=== PATIENT | female | born 1945 | race Caucasian/White ===

== ENCOUNTER 2020-10-29 21:20 | Emergency (ER) | payer MEDICARE, OTHER ==
[~2020-10-29] VITALS: Ht 160 cm; Wt 63.5 kg
[~2020-10-29 21:20] MED LIST: GEMF600T3 PO; GLIM4TAB PO; HYDR1TAB PO; LISI40TA PO; LVT.05T PO; MTF500T PO
[2020-10-29] MEDS ORDERED: NS IV 1000 ML 1,000 ML IV SCH ×3 (21:30→22:15)
[2020-10-29 21:34] LABS: BASOPHILS % (AUTO) 0 % (0-10); EOSINOPHILS # (AUTO) 0.1 10^3/uL (0.0-0.3); EOSINOPHILS % (AUTO) 1 % (0-10); HEMATOCRIT 37 % (35-52); HEMOGLOBIN 13.2 g/dL (11.5-16.0); LYMPHOCYTES # (AUTO) 2.2 10^3/uL (1.0-4.0); LYMPHOCYTES % (AUTO) 22 % (12-44); MEAN CORPUSCULAR HEMOGLOBIN 31 pg (25-34); MEAN CORPUSCULAR HGB CONC 36 g/dL (32-36); MEAN CORPUSCULAR VOLUME 85 fL (80-99); MEAN PLATELET VOLUME 9.6 fL (9.0-12.2); MONOCYTES # (AUTO) 0.8 10^3/uL (0.0-1.0); MONOCYTES % (AUTO) 8 % (0-12); NEUTROPHILS # (AUTO) 6.7 10^3/uL (1.8-7.8); NEUTROPHILS % (AUTO) 68 % (42-75); PLATELET COUNT 202 10^3/uL (130-400); WHITE BLOOD COUNT 9.9 10^3/uL (4.3-11.0)
[2020-10-29 21:45] LABS: INR 1.1 (0.8-1.4); PROTHROMBIN TIME PATIENT 14.1 SEC (12.2-14.7)
[2020-10-29 21:53] LABS: ALBUMIN 3.7 GM/DL (3.2-4.5); BILIRUBIN,TOTAL 1.9 MG/DL (0.1-1.0); CALCIUM 9.3 MG/DL (8.5-10.1); CREATININE SERUM 1.23 MG/DL (0.60-1.30); MAGNESIUM 1.5 MG/DL (1.6-2.4); POTASSIUM 3.2 MMOL/L (3.6-5.0); TOTAL PROTEIN 6.4 GM/DL (6.4-8.2)
[2020-10-29 22:12] LABS: TSH (THYROID ANALYZER) 1.33 UIU/ML (0.35-4.94)
[2020-10-29] MEDS ORDERED: inSUlin (REGULAR) HUMAN 1 UNIT/0.01 ML (CHARGE PER UNIT) SC ONE (22:15)
--- NOTE | 2020-10-29 22:47 | ED General ---
General Chief Complaint: Glucose Problems Stated Complaint: HIGH BLOOD SUGAR Nursing Triage Note: pt presents to ed via ems from home with complaints of lethargy and confusion. EMS reports upon their arrival to scene pt glucose read high. Nursing Sepsis Screen: No Definite Risk Source of Information: EMS, Old Records (PT'S ONLY PRIOR VISIT HERE WAS FOR AN OUTPATIENT PROCEDURE IN 2010. ) Exam Limitations: Other (PT IS VERY CONFUSED AND UNABLE TO GIVE ANY INFORMATION OF ANY KIND; ) History of Present Illness Date Seen by Provider: Oct 29, 2020 Time Seen by Provider: 21:23 Initial Comments PT ARRIVES VIA EMS FROM HOME IS UNKNOWN WHO CALLED EMS FOR PT PT WITH LETHARGY AND CONFUSION ACCUCHECK READ "HIGH" FOR EMS NO OTHER INFORMATION IS OBTAINABLE NO ONE ACCOMPANIED PT TO ER OR HAS CALLED ABOUT PT EMS BRINGS A BAG OF MEDICATION WITH PT--NO ASPIRIN OR ANY BLOOD THINNERS ARE IN THE BAG. Allergies and Home Medications Allergies Coded Allergies: Penicillins (Unverified Allergy, RASH, SOB, 05/04/11) Sulfa (Sulfonamide Antibiotics) (Unverified Allergy, SWELLING, 05/04/11) Home Medications Gemfibrozil 600 Mg Tablet, 1 EACH PO BID, (Reported) Glimepiride 4 Mg Tablet, 6 MG PO DAILY, (Reported) Hydrocodone Bit/Acetaminophen 1 Each Tablet, 1-2 EACH PO Q4HR PRN, (Reported) Levothyroxine Sodium 50 Mcg Tablet, 1 EACH PO DAILY, (Reported) Lisinopril 40 Mg Tablet, 1 EACH PO DAILY, (Reported) Metformin Hcl 500 Mg Tablet, 1 EACH PO BID WITH MEALS, (Reported) 2 TABS IN AM AND 1 TAB IN PM Patient Home Medication List Home Medication List Reviewed: Yes Review of Systems Review of Systems Constitutional: other (UNABLE TO OBTAIN) Past [place]-Dygcsf-Qssqrw Hx Patient Social History Smoking Status: Unknown if Ever Smoked Recent Hopitalizations: Yes Past Medical History Surgeries: Yes (RIGHT PAROTIDECTOMY 2010) Cardiac: Yes High Cholesterol, Hypertension RECORDS ASSOCIATE History: Menopausal Endocrine: Yes Diabetes, Insulin dep, Hypothyroidsim HEENT: Yes (RIGHT PAROTIDECTOMY 2010) Family Medical History ABOVE HISTORY IS OBTAINED, BASED ON PT'S MEDICATIONS. Physical Exam Vital Signs Vital Signs - First Documented 10/29/20 21:24 Temp 36.8 Pulse 78 Resp 18 B/P (MAP) 176/83 (114) Pulse Ox 98 Capillary Refill : Less Than 3 Seconds Height, Weight, BMI Height: '" Weight: lbs. oz. kg; 24.00 BMI Method: General Appearance: WD/WN, Other (LETHARGIC, "GLASSY-EYED", SLOW MENTATION, SIGNIFICANTLY CONFUSED, AND ANSWERS "YES" TO ALMOST EVERY QUESTION, OTHERWISE SPEECH IS COMPLETELY NON-SENSICAL AND VERY MINIMAL. ) HEENT: PERRL/EOMI, TMs Normal, Other (EYES WITH BLANK STARE AND APPEAR DRY, ORAL MUCOSA VERY DRY. NO EXTERNAL EVIDENCE OF TRAUMA TO HEAD OR FACE. ) Neck: Normal Inspection Respiratory: Normal Breath Sounds, No Accessory Muscle Use, No Respiratory Distress Cardiovascular: Regular Rate, Rhythm, No JVD, Normal Peripheral Pulses, Systolic Murmur (1-2/6) Gastrointestinal: No Pulsatile Mass, Non Tender, Soft Back: No CVA Tenderness, No Vertebral Tenderness Extremity: No Pedal Edema Neurologic/Psychiatric: No Motor/Sensory Deficits (DOES MOVE ALL EXTREMITIES, BUT IS VERY LETHARGIC AND NOT FOLLOWING COMMANDS), Other (LETHARGIC, BUT AWAKE, BLANK STARE, VERY MINIMAL SPEECH --ANSWERS "YES" TO NEARLY EVERY QUESTION AND ANY OTHER WORDS ARE NON-SENSICAL. UNABLE TO STATE NAME, , OR ANY NAMES OF ANYONE, OR WHERE SHE IS OR WHY SHE IS HERE. ) Skin: Normal Color, Warm/Dry; No Ecchymosis, No Rash; Other (NO EXTERNAL EVIDENCE OF TRAUMA ANYWHERE ON BODY. ) Focused Exam Lactate Level 10/29/20 22:56: Lactic Acid Level 1.92 Lactic Acid Level Laboratory Tests Test 10/29/20 22:56 Lactic Acid Level 1.92 MMOL/L (0.50-2.00) Progress/Results/Core Measures Suspected Sepsis Recent Fever Within 48 Hours: No Infection Criteria Present: None New/Unexplained Altered Menta: No Sepsis Screen: No Definite Risk SIRS Temperature: Pulse: 78 Respiratory Rate: 18 Laboratory Tests 10/29/20 21:28: White Blood Count 9.9 Blood Pressure 176 /83 Mean: 114 10/29/20 22:56: Lactic Acid Level 1.92 Laboratory Tests 10/29/20 21:28: Creatinine 1.23, INR Comment 1.1, Platelet Count 202, Total Bilirubin 1.9H Results/Orders Lab Results Laboratory Tests Test 10/29/20 21:24 10/29/20 21:28 10/29/20 22:56 10/29/20 22:57 Range/Units Blood Gas Puncture Site L RAD Blood Gas Patient Temperature 97.6 Arterial Blood pH 7.43 7.37-7.43 Arterial Blood Partial Pressure CO2 35 35-45 MMHG Arterial Blood Partial Pressure O2 91 79-93 MMHG Arterial Blood HCO3 23 23-27 MMOL/L Arterial Blood Total CO2 24.3 21.0-31.0 MMOL/L Arterial Blood Oxygen Saturation 96 94-100 % Arterial Blood Base Excess -0.7 -2.5-2.5 MMOL/L Michael Test POS Blood Gas Ventilator Setting NO Blood Gas Inspired Oxygen ROOM AIR White Blood Count 9.9 4.3-11.0 10^3/uL Red Blood Count 4.32 3.80-5.11 10^6/uL Hemoglobin 13.2 11.5-16.0 g/dL Hematocrit 37 35-52 % Mean Corpuscular Volume 85 80-99 fL Mean Corpuscular Hemoglobin 31 25-34 pg Mean Corpuscular Hemoglobin Concent 36 32-36 g/dL Red Cell Distribution Width 13.1 10.0-14.5 % Platelet Count 202 130-400 10^3/uL Mean Platelet Volume 9.6 9.0-12.2 fL Immature Granulocyte % (Auto) 0 % Neutrophils (%) (Auto) 68 42-75 % Lymphocytes (%) (Auto) 22 12-44 % Monocytes (%) (Auto) 8 0-12 % Eosinophils (%) (Auto) 1 0-10 % Basophils (%) (Auto) 0 0-10 % Neutrophils # (Auto) 6.7 1.8-7.8 10^3/uL Lymphocytes # (Auto) 2.2 1.0-4.0 10^3/uL Monocytes # (Auto) 0.8 0.0-1.0 10^3/uL Eosinophils # (Auto) 0.1 0.0-0.3 10^3/uL Basophils # (Auto) 0.0 0.0-0.1 10^3/uL Immature Granulocyte # (Auto) 0.0 0.0-0.1 10^3/uL Erythrocyte Sedimentation Rate 20 0-30 MM/HR Prothrombin Time 14.1 12.2-14.7 SEC INR Comment 1.1 0.8-1.4 Activated Partial Thromboplast Time 29 24-35 SEC Sodium Level 130 L 135-145 MMOL/L Potassium Level 3.2 L 3.6-5.0 MMOL/L Chloride Level 96 L 98-107 MMOL/L Carbon Dioxide Level 19 L 21-32 MMOL/L Anion Gap 15 H 5-14 MMOL/L Blood Urea Nitrogen 19 H 7-18 MG/DL Creatinine 1.23 0.60-1.30 MG/DL Estimat Glomerular Filtration Rate 42 BUN/Creatinine Ratio 15 Glucose Level 677 *H 70-105 MG/DL Glucometer 593 *H 472 *H 70-110 MG/DL Calcium Level 9.3 8.5-10.1 MG/DL Corrected Calcium 9.5 8.5-10.1 MG/DL Magnesium Level 1.5 L 1.6-2.4 MG/DL Total Bilirubin 1.9 H 0.1-1.0 MG/DL Aspartate Amino Transf (AST/SGOT) 17 5-34 U/L Alanine Aminotransferase (ALT/SGPT) 14 0-55 U/L Alkaline Phosphatase 110 40-136 U/L Lactate Dehydrogenase 242 H 125-220 U/L C-Reactive Protein High Sensitivity 0.76 H 0.00-0.50 MG/DL Total Protein 6.4 6.4-8.2 GM/DL Albumin 3.7 3.2-4.5 GM/DL Amylase Level 25 25-125 U/L Lipase 50 8-78 U/L Procalcitonin 0.14 H <0.10 NG/ML TSH [place] Testing 1.33 0.35-4.94 UIU/ML Lactic Acid Level 1.92 0.50-2.00 MMOL/L Test 10/29/20 23:00 10/29/20 23:13 Range/Units Urine Color YELLOW Urine Clarity CLEAR Urine pH 6.5 5-9 Urine Specific Mears <=1.005 1.016-1.022 Urine Protein TRACE H NEGATIVE Urine Glucose (UA) 3+ H NEGATIVE Urine Ketones NEGATIVE NEGATIVE Urine Nitrite NEGATIVE NEGATIVE Urine Bilirubin NEGATIVE NEGATIVE Urine Urobilinogen 0.2 < = 1.0 MG/DL Urine Leukocyte Esterase NEGATIVE NEGATIVE Urine RBC (Auto) TRACE-I NEGATIVE Urine RBC 0-2 /HPF Urine WBC 2-5 /HPF Urine Squamous Epithelial Cells 0-2 /HPF Urine Crystals PRESENT H /LPF Urine Amorphous Sediment FEW MENA URATES H /LPF Urine Bacteria FEW H /HPF Urine Casts NONE /LPF Urine Mucus SMALL H /LPF Urine Culture Indicated NO Coronavirus 2019 (JULIA) Positive H Negative My Orders Orders - RENATA MILIAN DO Accucheck Stat ONCE (10/29/20 21:24) Ed Iv/Invasive Line Start (10/29/20:24) Monitor-Rhythm Ecg Trace Only (10/29/20:24) Amylase (10/29/20:24) Arterial Blood Gas (10/29/20:24) Cbc With Automated Diff (10/29/20:24) Comprehensive Metabolic Panel (10/29/20:24) Lactic Acid Analyzer (10/29/20:24) Lipase (10/29/20:) Magnesium (10/29/20:) Protime With Inr (10/29/20:) Partial Thromboplastin Time (10/29/20:) Thyroid Analyzer (10/29/20:24) Ua Culture If Indicated (10/29/20:24) Ed Iv/Invasive Line Start (10/29/20 21:24) Ns Iv 1000 Ml (Sodium Chloride 0.9%) (10/29/20 21:30) Ekg Tracing (10/29/20 22:00) Catheter(Urinary) Insert & Ass 03,15 (10/29/20 22:00) Ed Iv/Invasive Line Start (10/29/20 22:00) Ns Iv 1000 Ml (Sodium Chloride 0.9%) (10/29/20 22:00) Magnesium 1 Gm/100 Ml Ivpb (Magnesium [place] (10/29/20 22:00) Ct Head Wo-R/O Stroke (10/29/20 22:02) Chest 1 View, Ap/Pa Only (10/29/20 22:02) Procalcitonin (Pct) (10/29/20 22:02) Hs C Reactive Protein (10/29/20 22:02) Erythrocyte Sedimentation Rate (10/29/20 22:02) LDH (10/29/20 22:02) Coronavirus Sars-Cov-2 So 2018 (10/29/20 22:02) Covid 19 Inhouse Test (10/29/20 22:02) Insulin (Regular) Human (Novolin R (Per (10/29/20 22:15) Ed Iv/Invasive Line Start (10/29/20 22:11) Ns Iv 1000 Ml (Sodium Chloride 0.9%) (10/29/20 22:15) Ns W/Kcl 20 Meq/L (Ns Iv W/Kcl 20 Meq/L) (10/29/20 23:15) Ekg Tracing (10/29/20 23:13) Labetalol Injection (Normodyne Injection (10/29/20 23:45) Labetalol Injection (Normodyne Injection (10/30/20 00:15) Accucheck Stat ONCE (10/30/20 00:05) Medications Given in ED Current Medications Medications Dose Ordered Sig/Home Route Start Time Stop Time Status Last Admin Dose Admin Insulin Human Regular 20 unit ONCE ONCE SC 10/29/20 22:15 10/29/20 22:16 DC 10/29/20 23:02 20 UNIT Labetalol HCl 10 mg ONCE ONCE IV 10/29/20 23:45 10/29/20 23:46 DC 10/29/20 23:50 10 MG Labetalol HCl 10 mg ONCE ONCE IV 10/30/20 00:15 10/30/20 00:16 DC 10/30/20 00:12 10 MG Vital Signs/I&O 10/29/20 21:24 Temp 36.8 Pulse 78 Resp 18 B/P (MAP) 176/83 (114) Pulse Ox 98 10/30/20 00:00 Intake Total 1000 ml Balance 1000 ml Capillary Refill : Less Than 3 Seconds Blood Pressure Mean: 114 Point of Care Testing Finger Stick Blood Glucose: 593 Progress Note : Progress Note COVID 19 TESTING DONE AND WAS POSITIVE PPE WORN FOR REMAINDER OF ER STAY GIVEN IV FLUIDS, INSULIN, POTASSIUM AND MAGNESIUM ALSO GIVEN LABETALOL FOR PERSISTENTLY ELEVATED BLOOD PRESSURE NO DETERIORATION IN PT'S CONDITION ACCUCHECK 404 PRIOR TO TRANSFER BP DOWN, OTHER VITALS STABLE. 2330--PT SEEMS A LITTLE MORE ALERT, TALKING MORE, BUT STILL WITH SIGNIFICANT CONFUSION AND NON-SENSICAL SPEECH AND UNABLE TO COMPLETE SENTENCES, BUT SPEECH ITSELF IS CLEAR AND NOT SLURRED. MUCH DIFFICULTY FINDING WORDS DID INFORM PT THAT SHE WAS BEING TRANSFERRED AND THAT SHE HAD BLEEDING IN HER HEAD, AND AT ONE POINT SHE DID SAY SHE FELL, BUT UNABLE TO ELABORATE. ATTEMPTED TO CALL PT'S DAUGHTER, ANA ESPITIA--THE NUMBER LISTED IS NO LONGER IN SERVICE. NO ANSWER AT PT'S HOME PHONE NUMBER NO OTHER CONTACT INFORMATION IS KNOWN, AND EMS DID NOT KNOW WHO CONTACTED THEM 0015--EMS HERE FOR TRANSFER 0027--RN ON PHONE WITH FAMILY MEMBER AND UPDATING THEM ON PT'S CONDITION. EMS WAS ABLE TO FIND PHONE NUMBER OF FAMILY MEMBER, GREER, PT'S DAUGHTER. SHE REPORTED TO RN THAT PT FELL YESTERDAY AND TODAY. ECG Initial ECG Impression Date: Oct 29, 2020 Initial ECG Impression Time: 23:06 Initial ECG Rate: 80 Initial ECG Rhythm: Normal Sinus (WITH ARTIFACT) Initial ECG Comparisson: No Previous ECG Available EKG : EKG Time: 23:09 Rate: 80 Rhythm: Normal Sinus (WITH ARTIFACT) Diagnostic Imaging Comments CXR--ATELECTASIS/INFILTRATE RIGHT BASE, PENDING RADIOLOGIST REVIEW CT HEAD--PER [facility] VIA PHONE AT [phone] AND VIA FAX AT [phone] SMALL RIGHT ANTERIOR/FRONTAL SUBDURAL BLEED, CHRONIC MICROVASCULAR ISCHEMIC CHANGES. Reviewed: Reviewed by Ct Departure Communication (Admissions) [id number]--CALLED [facility]ILLINGS [phone]--SPOKE WITH DR. FRANKLIN, ER PHYSICIAN, ACCEPTS PT FOR TRANSFER. Impression Primary Impression: Subdural hemorrhage Additional Impressions: HYPER OSMOLAR NON-KETOSIS, UNCONTROLLED DIABETES COVID-19 virus infection Uncontrolled hypertension Altered mental status Hypokalemia Hypomagnesemia Disposition: XFER SHT-TRM HOSP Condition: Stable Transfer Transfer Reason: Exceeds level of care Transfer Facility: [facility] ID Departure-Patient Inst. Referrals: HUONG PETERS MD (Family) Primary Care Physician RENATA MILIAN DO Oct 29, 2020 22:46
[2020-10-29] MEDS: MAGNESIUM 1 GM/100 ML IVPB 100 ML IV SCH ×2 (23:03→23:19)
[2020-10-29 23:05] LABS: BILIRUBIN,URINE NEGATIVE (NEGATIVE); CLARITY,URINE CLEAR; COLOR,URINE YELLOW; GLUCOSE, URINE (UA) 3+ (NEGATIVE); KETONES,URINE NEGATIVE (NEGATIVE); LEUKOCYTE ESTERASE ,URINE NEGATIVE (NEGATIVE); NITRITE,URINE NEGATIVE (NEGATIVE); PH,URINE 6.5 (5-9); PROTEIN,URINE TRACE (NEGATIVE)
[2020-10-29 23:12] LABS: ABG BASE EXCESS -0.7 MMOL/L (-2.5-2.5); ABG OXYGEN SATURATION 96 % (94-100); ABG PCO2 35 MMHG (35-45); ABG PH 7.43 (7.37-7.43); ABG PO2 91 MMHG (79-93); ABG TCO2 24.3 MMOL/L (21.0-31.0)
[2020-10-29 23:13] LABS: AMORPHOUS SEDIMENT,UR FEW AMOR URATES /LPF; BACTERIA,URINE FEW /HPF; RBC,URINE 0-2 /HPF; SQUAMOUS EPITHELIAL CELL,UR 0-2 /HPF
[2020-10-29 23:15] LABS: ALLENS TEST POS; INSPIRED O2 ROOM AIR; PATIENT TEMP 97.6; VENTILATOR NO
[2020-10-29] MEDS ORDERED: NS W/KCL 20 MEQ/L 1,000 ML IV SCH (23:15)
[2020-10-29] MEDS ORDERED: LABETALOL HCL 20 MG/4 ML VIAL IV ONE (23:45)
[2020-10-30] MEDS ORDERED: LABETALOL HCL 20 MG/4 ML VIAL IV ONE (00:15)
[2020-10-30 00:37] VITALS: BP 195/89
--- NOTE | 2020-10-30 06:30 | Diagnostic Imaging Report ---
EXAMINATION: Portable erect AP chest at 1043 PM INDICATION: Altered mental status This exam is less than optimal due to shallow inspiration. Allowing for this technical factor, the heart size is within normal limits and stable when compared to 05/04/2011. There are few carotid bronchovascular markings in both infrahilar regions. These may be secondary to the shallow degree of inspiration as well. There is no clear evidence for pneumonia or for pleural effusion. There may be mild atelectasis/infiltrate in the right lung base, however. The mediastinum is not widened. The osseous structures are intact. IMPRESSION: 1. This study is less than optimal due to shallow inspiration. There may be mild atelectasis/infiltrate in the right lung base. Clinical follow-up is recommended. Dictated by: Dictated on workstation # [id number]
--- NOTE | 2020-10-30 07:15 | Diagnostic Imaging Report ---
PROCEDURE: CT head wo r/o stroke. TECHNIQUE: Multiple contiguous axial images were obtained through the brain without the use of intravenous contrast. Auto Exposure Controls were utilized during the CT exam to meet ALARA standards for radiation dose reduction. INDICATION: CVA There are no prior studies available for comparison. Adjacent to the anterior falx there is a small 2 x 12 mm area of increased density. I suspect this is related to a small amount of hemorrhage in the subdural space adjacent to the falx. There is no other hemorrhage identified. There is no mass or shift of midline. The ventricles are not abnormally dilated. Basal ganglia calcifications are evident. There is cortical atrophy. The degree of atrophy is consistent with the patient's age. The bone windows show no evidence for a skull fracture or for a destructive lesion. The orbits are symmetrical and within normal limits. The sinuses are generally clear. IMPRESSION: 1. There is a small amount of acute hemorrhage in the subdural space adjacent to the anterior falx. A short-term (24-hour) follow-up CT head exam would be recommended for continued evaluation. 2. There is no acute intracranial abnormality noted otherwise. 3. I agree with the [facility] interpretation of this exam. Dictated by: Dictated on workstation # [id number]
== END 2020-10-30 00:37 | disposition short-term general hospital (02) ==
LOC: EDUNIT# 21:20 → ER 21:22
DX: I62.00 Nontraumatic subdural hemorrhage, unspecified (principal); E11.65 Type 2 diabetes mellitus with hyperglycemia; U07.1 COVID-19; I10 Essential (primary) hypertension; R41.82 Altered mental status, unspecified; E87.6 Hypokalemia; E83.42 Hypomagnesemia; E03.9 Hypothyroidism, unspecified; E78.00 Pure hypercholesterolemia, unspecified; Z79.890 Hormone replacement therapy; Z88.0 Allergy status to penicillin; Z88.2 Allergy status to sulfonamides
CPT/HCPCS: 51702; 70450; 71045; 80053; 81000; 82150; 82805; 82962 ×2; 83605; 83615; 83690; 83735; 84145; 84443; 85025; 85610; 85652; 85730; 86141; 93041; 99291; U0002; 36415; 87635

== ENCOUNTER 2020-11-08 12:46 | Observation (INO) | payer MEDICARE, OTHER ==
[~2020-11-08] VITALS: Ht 170 cm; Wt 64.3 kg
--- NOTE | 2020-11-08 13:15 | ED Neurological Problem ---
General Chief Complaint: Neuro-Stroke Like Symptoms Stated Complaint: AMS Source: patient Exam Limitations: no limitations History of Present Illness Date Seen by Provider: Nov 08, 2020 Time Seen by Provider: 12:42 Initial Comments Patient presents ER by EMS from home with chief complaint of altered mental status. Blood sugar reads high. No history of strokes not on blood thinners. Takes lisinopril and atorvastatin. She is accompanied by her son with MR who gives very little history. Patient is alert to her name and remember she had a fall but does not have any pain anywhere. Unknown last well time. Unknown time of fall. She denies loss of consciousness but she does recall striking her head. Allergies and Home Medications Allergies Coded Allergies: Penicillins (Unverified Allergy, Unknown, RASH, SOB, 11/08/20) Sulfa (Sulfonamide Antibiotics) (Unverified Allergy, Unknown, SWELLING, 11/08/20) Home Medications Gemfibrozil 600 Mg Tablet, 1 EACH PO BID, (Reported) Glimepiride 4 Mg Tablet, 6 MG PO DAILY, (Reported) Hydrocodone Bit/Acetaminophen 1 Each Tablet, 1-2 EACH PO Q4HR PRN, (Reported) Levothyroxine Sodium 50 Mcg Tablet, 1 EACH PO DAILY, (Reported) Lisinopril 40 Mg Tablet, 1 EACH PO DAILY, (Reported) Metformin Hcl 500 Mg Tablet, 1 EACH PO BID WITH MEALS, (Reported) 2 TABS IN AM AND 1 TAB IN PM Patient Home Medication List Home Medication List Reviewed: Yes Review of Systems Review of Systems Constitutional: No chills, No diaphoresis Eyes: Denies Blindness, Denies Blurred Vision Ears, Nose, Mouth, Throat: denies ear pain, denies ear discharge Respiratory: No cough, No short of breath Cardiovascular: No chest pain, No Hx of Intervention Gastrointestinal: No abdominal pain, No nausea, No vomiting Musculoskeletal: No back pain, No joint pain All Other Systems Reviewed Negative Unless Noted: Yes Past Hvdnfiw-Rjzvnp-Qxixym Hx Patient Social History Alcohol Use: Denies Use Smoking Status: Never a Smoker Recent Hopitalizations: Yes Past Medical History Surgeries: Yes (RIGHT PAROTIDECTOMY 2010) Cardiac: Yes High Cholesterol, Hypertension [employer]PERATOR History: Menopausal Endocrine: Yes Diabetes, Insulin dep, Hypothyroidsim HEENT: Yes (RIGHT PAROTIDECTOMY 2010) Family Medical History ABOVE HISTORY IS OBTAINED, BASED ON PT'S MEDICATIONS. Physical Exam Vital Signs Vital Signs - First Documented 11/08/20 12:46 Temp 36.0 Pulse 99 Resp 16 B/P (MAP) 186/95 (125) Pulse Ox 98 O2 Delivery Room Air Capillary Refill : Height, Weight, BMI Height: '" Weight: lbs. oz. kg; 24.00 BMI Method: General Appearance: WD/WN, mild distress HEENT: PERRL/EOMI, TMs normal, pharynx normal, other (Abrasion and small hematoma 1 to 2 cm over the right eyebrow nonbleeding.) Neck: non-tender, full range of motion, supple, normal inspection Respiratory: lungs clear, normal breath sounds, no respiratory distress, no accessory muscle use Cardiovascular: normal peripheral pulses, regular rate, rhythm Gastrointestinal: normal bowel sounds, non tender, soft Neurologic/Psychiatric: cast associate II-XII nml as tested, alert; No oriented x 3 (Oriented to person and place but not time or situation); motor weakness (4 out of 5 weakness symmetric bilateral lower) Crainal Nerves: normal hearing, abnormal speech (Aphasia) Stroke Onset of Symptoms Date of Onset of Symptoms: Nov 08, 2020 Symptoms onset unknown: Yes NIH Stroke Scale Assessment Select: Initial Level of Consciousness: 0=Alert (0), Level of Consciousness- Questions: 1=Answers one question (1), LOC Commands: 0=Performs both tasks (0), Gaze: Normal (0), Visual Delong: 0=No visual loss (0), Facial Movement (Facial Paresis): 0=Normal symmetrical mnt (0), Motor Function-Arms Right: 0=No drift (0), Motor Function-Arms Left: 0=No drift (0), Motor Function-Legs Right: 1=Drift (1), Motor Function-Legs Left: 1=Drift (1), Limb Ataxia: 0=Absent (0), Sensory: 0=Normal:no loss (0), Best Language: 1=Mild to moderat aphasia (1), Dysarthria: 0=Normal (0), Extinction & Inattention: 0=No abnormality (0), Total: 4 Stroke Thrombolytic Exclusion Age 18 or Over: Yes Acute intenal hemorrhage: Yes History of CVA: No Uncontrolled Coagulation Defec: No Intracranial Hemorrhage: Yes Severe Hypertension: No GI or Bleed: No Subarachnoid Hemorrhage: No Intracranial Neoplasm/Aneurysm: No Oral Anticoagulants: No Surgery or Trauma: No Puncture of Non-Compressible V: No Recent CPR: No Diabetic Hemorrhagic Retinopat: No Organ Biopsy: No Recent Obstetric Delivery: No Glucose: Yes (high) Significant Hepatic Dysfunctio: No NIH Stoke Scale >22: No Bacterial Endocarditis: No Pericarditis: No Improving Symptoms: No Platelets: No TPA Contraindication: Yes (ich) IV - TPa Received IV - TPa Procedure Performed?: No (ich) Progress/Results/Core Measures Results/Orders Lab Results Laboratory Tests Test 11/08/20 12:46 11/08/20 13:20 11/08/20 13:36 11/08/20 14:44 Range/Units White Blood Count 9.3 4.3-11.0 10^3/uL Red Blood Count 4.65 3.80-5.11 10^6/uL Hemoglobin 13.9 11.5-16.0 g/dL Hematocrit 40 35-52 % Mean Corpuscular Volume 86 80-99 fL Mean Corpuscular Hemoglobin 30 25-34 pg Mean Corpuscular Hemoglobin Concent 35 32-36 g/dL Red Cell Distribution Width 12.6 10.0-14.5 % Platelet Count 292 130-400 10^3/uL Mean Platelet Volume 9.7 9.0-12.2 fL Immature Granulocyte % (Auto) 0 % Neutrophils (%) (Auto) 74 42-75 % Lymphocytes (%) (Auto) 18 12-44 % Monocytes (%) (Auto) 6 0-12 % Eosinophils (%) (Auto) 1 0-10 % Basophils (%) (Auto) 0 0-10 % Neutrophils # (Auto) 6.9 1.8-7.8 10^3/uL Lymphocytes # (Auto) 1.7 1.0-4.0 10^3/uL Monocytes # (Auto) 0.6 0.0-1.0 10^3/uL Eosinophils # (Auto) 0.1 0.0-0.3 10^3/uL Basophils # (Auto) 0.0 0.0-0.1 10^3/uL Immature Granulocyte # (Auto) 0.0 0.0-0.1 10^3/uL Prothrombin Time 13.9 12.2-14.7 SEC INR Comment 1.0 0.8-1.4 Activated Partial Thromboplast Time 31 24-35 SEC D-Dimer 1.58 H 0.00-0.49 UG/ML Sodium Level 134 L 135-145 MMOL/L Potassium Level 3.8 3.6-5.0 MMOL/L Chloride Level 94 L 98-107 MMOL/L Carbon Dioxide Level 23 21-32 MMOL/L Anion Gap 17 H 5-14 MMOL/L Blood Urea Nitrogen 25 H 7-18 MG/DL Creatinine 1.38 H 0.60-1.30 MG/DL Estimat Glomerular Filtration Rate 37 BUN/Creatinine Ratio 18 Glucose Level 527 *H 70-105 MG/DL Calcium Level 9.8 8.5-10.1 MG/DL Corrected Calcium 9.9 8.5-10.1 MG/DL Total Bilirubin 2.0 H 0.1-1.0 MG/DL Aspartate Amino Transf (AST/SGOT) 19 5-34 U/L Alanine Aminotransferase (ALT/SGPT) 18 0-55 U/L Alkaline Phosphatase 180 H 40-136 U/L Troponin I 0.062 H <0.028 NG/ML Total Protein 7.6 6.4-8.2 GM/DL Albumin 3.9 3.2-4.5 GM/DL Urine Color YELLOW Urine Clarity CLOUDY Urine pH 6.0 5-9 Urine Specific [place] 1.025 H 1.016-1.022 Urine Protein 2+ H NEGATIVE Urine Glucose (UA) 3+ H NEGATIVE Urine Ketones 1+ H NEGATIVE Urine Nitrite NEGATIVE NEGATIVE Urine Bilirubin NEGATIVE NEGATIVE Urine Urobilinogen 0.2 < = 1.0 MG/DL Urine Leukocyte Esterase NEGATIVE NEGATIVE Urine RBC (Auto) NEGATIVE NEGATIVE Urine RBC NONE /HPF Urine WBC NONE /HPF Urine Squamous Epithelial Cells 0-2 /HPF Urine Crystals NONE /LPF Urine Bacteria FEW H /HPF Urine Casts NONE /LPF Urine Mucus NEGATIVE /LPF Urine Yeast LARGE H /HPF Urine Culture Indicated YES Glucometer 427 *H 322 H 70-110 MG/DL Test 11/08/20 16:27 Range/Units Glucometer 277 H 70-110 MG/DL My Orders Orders - WILL QUEZADA Cbc With Automated Diff (11/08/20 13:00) Protime With Inr (11/08/20 13:00) Partial Thromboplastin Time (11/08/20 13:00) Comprehensive Metabolic Panel (11/08/20 13:00) Fibrin Degradation Products (11/08/20 13:00) Troponin I (11/08/20 13:00) Ua Culture If Indicated (11/08/20 13:00) Chest 1 View, Ap/Pa Only (11/08/20 13:00) Catheter(Urinary) Insert & Ass 03,15 (11/08/20 13:00) Ekg Tracing (11/08/20 13:00) Nothing By Mouth (11/08/20 Lunch) Accucheck Stat ONCE (11/08/20 13:00) Ed Iv/Invasive Line Start (11/08/20 13:00) Ed Iv/Invasive Line Start (11/08/20 13:00) Vital Signs Stroke Patient Q15M (11/08/20 13:00) Ct Head Wo-R/O Stroke (11/08/20 13:00) O2 (11/08/20 13:00) Intake & Output 06,14,22 (11/08/20 13:00) Monitor-Rhythm Ecg Trace Only (11/08/20 13:00) Dysphagia Screening Tool (11/08/20 13:00) Post Thrombolytic Adminstratio (11/08/20 13:00) Lipid Panel (11/09/20 06:00) Urine Culture (11/08/20 13:20) Insulin (Regular) Human (Novolin R (Per (11/08/20 13:45) Accucheck Stat ONCE (11/08/20 14:50) Ct Angio Head/Neck (11/08/20 14:51) Ed Iv/Invasive Line Start (11/08/20 14:51) Ns Iv 1000 Ml (Sodium Chloride 0.9%) (11/08/20 15:00) Insulin (Regular) Human (Novolin R (Per (11/08/20 15:00) Mri Brain W/O Contrast (11/08/20 14:30) Cbc With Automated Diff (11/08/20 15:27) Protime With Inr (11/08/20 15:27) Partial Thromboplastin Time (11/08/20 15:27) Comprehensive Metabolic Panel (11/08/20 15:27) Fibrin Degradation Products (11/08/20 15:27) Troponin I (11/08/20 15:27) Accucheck Stat ONCE (2/22/21 15:27) Ed Iv/Invasive Line Start (11/08/20 15:27) Ed Iv/Invasive Line Start (11/08/20 15:27) Vital Signs Stroke Patient Q15M (11/08/20 15:27) O2 (11/08/20 15:27) Intake & Output 06,14,22 (11/08/20 15:27) Dysphagia Screening Tool (11/08/20 15:27) Post Thrombolytic Adminstratio (11/08/20 15:27) Iohexol Injection (Omnipaque 350 Mg/Ml 1 (11/08/20 15:30) Received Contrast (Hold Metformin- Contr (11/08/20 15:30) Sodium Chloride Flush (Catheter Flush Sy (11/08/20 15:30) Ns (Ivpb) (Sodium Chloride 0.9% Ivpb Bag (11/08/20 15:30) Accucheck Stat ONCE (11/08/20 16:20) Medications Given in ED Current Medications Medications Dose Ordered Sig/Home Route Start Time Stop Time Status Last Admin Dose Admin Insulin Human Regular 5 unit ONCE ONCE IV 11/08/20 13:45 11/08/20 13:46 DC 11/08/20 14:03 5 UNIT Insulin Human Regular 5 unit ONCE ONCE SC 11/08/20 15:00 11/08/20 15:01 DC 11/08/20 15:07 5 UNIT Iohexol 100 ml ONCE ONCE IV 11/08/20 15:30 11/08/20 15:31 DC 11/08/20 16:03 75 ML Sodium Chloride 10 ml NEEDED PRN IV 11/08/20 15:30 11/08/20 17:45 DC 11/08/20 16:03 10 ML Sodium Chloride 100 ml ONCE ONCE IV 11/08/20 15:30 11/08/20 15:31 DC 11/08/20 16:03 80 ML Vital Signs/I&O 11/08/20 12:46 Temp 36.0 Pulse 99 Resp 16 B/P (MAP) 186/95 (125) Pulse Ox 98 O2 Delivery Room Air Progress Progress Note #1: Time: 14:35 Progress Note Altered mental status with unknown last well time and blood sugar 450 on arrival. We gave 5 units of regular insulin. There is some odd findings on the CT that may be related to uncontrolled hyper glycemia. Plan to consult with neurology and we are attempting to obtain an MRI. Progress Note #2: Time: 16:29 Progress Note As we get more history from her daughter who the patient seems to be emotionally estranged with we reveal that about 10 days ago the patient had a fall with subdural hematoma treated at [facility]. She went home and was living with her daughter but then demanded to go back to her own house despite having some continued confusion. Today her son checked on her summonsed EMS. Patient's symptoms have significantly improved as her blood sugar comes down. She is no longer having any weakness and has an NIH of one-point nearly 4 difficulty remembering her date of . She has significantly improved her aphasia. Initial ECG Impression Date: Nov 08, 2020 Initial ECG Impression Time: 13:13 Initial ECG Rate: 90 Initial ECG Rhythm: Normal Sinus Initial ECG Intervals: QT (495) Initial ECG Impression: Normal Initial ECG Comparisson: No Previous ECG Available Comment Normal sinus rhythm without clinically relevant ST elevation or depression. Prolonged QTC mild. Diagnostic Imaging Diagonstic Imaging: Xray Plain Films/CT/US/NM/MRI: chest Comments [facility] [place], [place] NAME: LAURA ESPITIA [facility] REC#: [id number] PT STATUS: REG ER : 1945 PHYSICIAN: WILL QUEZADA MD ADMIT DATE: 11/08/20/ER Signed Date of Exam:11/08/20 CHEST 1 VIEW, AP/PA ONLY CHEST 1 VIEW, AP/PA ONLY Indication: Left arm weakness Comparison: 10/29/2020 Findings: No focal airspace disease in the visualized lungs. Please note that the posterior lower lobes are poorly evaluated by portable radiography. No pleural effusion or pneumothorax. Normal cardiomediastinal silhouette. Impression: 1. No acute cardiopulmonary process by portable radiography. Dictated by: Dictated on workstation # [id number] Dict: 11/08/201417 Trans: 11/08/201418 [facility] [id number] Interpreted by: GERHARD SERVIN MD Electronically signed by: GERHARD SERVIN MD 11/08/20 1419 Reviewed: Reviewed by Me Diagonstic Imaging: CT Plain Films/CT/US/NM/MRI: head Comments [facility] [place] [place] NAME: LAURA ESPITIA [facility] REC#: [id number] PT STATUS: REG ER : 1945 PHYSICIAN: WILL QUEZADA MD ADMIT DATE: 11/08/20/ER Signed Date of Exam:11/08/20 CT HEAD WO-R/O STROKE PROCEDURE: CT head wo r/o stroke. TECHNIQUE: Multiple contiguous axial images were obtained through the brain without the use of intravenous contrast. Auto Exposure Controls were utilized during the CT exam to meet ALARA standards for radiation dose reduction. INDICATION: Neuro deficit, left arm weakness. COMPARISON: CT head of 10/29/2020. FINDINGS: Previously noted subdural hematoma is resolved. No new intracranial hemorrhage. Asymmetric hyperdensity in the right caudate and lentiform nuclei is more conspicuous than prior examination. No hydrocephalus or space-occupying mass. Basilar cisterns remain widely patent. No skull fracture. Paranasal sinuses and mastoid air cells are clear. IMPRESSION: 1. No new intracranial hemorrhage or features of territorial infarct. 2. Asymmetric hyperattenuation of the right caudate and lentiform nuclei can be seen with uncontrolled hyperglycemia. Since patient has repetitive neurologic symptoms, MRI of the brain without and with IV contrast is suggested for further assessment. Dictated by: Dictated on workstation # [id number] Dict: 11/08/20 1312 Trans: 11/08/20 1337 [facility] [id number] Interpreted by: GERHARD SERVIN MD Electronically signed by: GERHARD SERVIN MD 11/08/20 1337 Reviewed: Reviewed by Sd Diagonstic Imaging: CT (angio) Plain Films/CT/US/NM/MRI: head (neck) Comments [facility] [place] [place] NAME: LAURA ESPITIA [facility] REC#: [id number] PT STATUS: REG ER : 1945 PHYSICIAN: WILL QUEZADA MD ADMIT DATE: 11/08/20/ER Signed Date of Exam:11/08/20 CT ANGIO HEAD/NECK PROCEDURE: CT angiography of the head and CT angiography of the neck with and without contrast. TECHNIQUE: Contiguous noncontrast images were obtained from the skull base through the vertex. After intravenous contrast administration, helical CT angiography of the neck was performed. Source data was reformatted into 3D MIP projections. Delayed post contrast acquisition was also obtained. Auto Exposure Controls were utilized during the CT exam to meet ALARA standards for radiation dose reduction. INDICATION: Left arm weakness. Concern for stroke. Fall recently with head bleed. History of endarterectomy. Comparison: CT head performed earlier the same date. FINDINGS: CTA Neck: The visualized portions of the aortic arch demonstrate no evidence of aneurysm or dissection. There is conventional branching pattern of the great vessels of the aorta. The brachiocephalic artery is normal in course and caliber. The right and left common carotid origins are unremarkable. The origin of the left subclavian artery is patent. The common carotid arteries and internal carotid arteries demonstrate a tortuous course. There is calcified atherosclerotic plaque in the bilateral carotid bulbs and proximal internal carotid arteries without flow-limiting stenosis. No evidence of dissection in the carotid systems. The external carotid arteries are patent and unremarkable. The vertebral arteries are codominant. The origin of the right vertebral artery is seen and is unremarkable. The origin of the left vertebral artery is seen and is unremarkable. There is no focal stenosis seen within the neck. There is no dissection. The vertebral arteries are well visualized to up to the level of the basilar artery. The osseous structures of the cervical spine are unremarkable. Included views through the lung apices demonstrate no focal consolidation. CTA brain: Atherosclerotic plaque is seen in the vasquez of the bilateral terminal internal carotid arteries without significant stenosis. No stenosis is seen in the bilateral anterior, middle, and posterior cerebral arteries. No evidence of aneurysm the northway of [place]. In the posterior circulation, both of the vertebral arteries demonstrate normal opacification. The vertebral arteries are codominant. Both the right and left PICA arteries are identified. The basilar artery is normal in course and caliber. The terminal branch vessels including the superior cerebellar arteries unremarkable. IMPRESSION: 1. No stenosis or aneurysm in the northway of [place]. 2. No stenosis or dissection the bilateral carotid and vertebral arteries. Dictated by: Dictated on workstation # [id number] Dict: 11/08/20 1607 Trans: 11/08/20 1613 [facility] [id number] Interpreted by: IRASEMA RESENDIZ DO Electronically signed by: IRASEMA RESENDIZ DO 11/08/201612 Reviewed: Reviewed by Me Diagonstic Imaging: MRI Plain Films/CT/US/NM/MRI: head (With and without IV contrast) Comments [facility] [place] [place] NAME: LAURA ESPITIA [facility] REC#: [id number] PT STATUS: ADM IN : 1945 PHYSICIAN: WILL QUEZADA MD ADMIT DATE: 11/08/20 Signed Date of Exam:11/08/20 MRI BRAIN W/O CONTRAST CLINICAL INDICATION: Patient fell a week ago and was transferred to the outside hospital with slight brain bleed and UTI. Patient is here today with confusion. Patient with hyperglycemia. EXAM: MRI of the brain performed without IV contrast. Sequences include axial DWI, ADC map, axial T2, axial FLAIR, axial T1, axial gradient echo, and sagittal T1. COMPARISON: Head CT without contrast dated 11/08/2020. FINDINGS: There is high T1 signal involving the right globus pallidus, putamen, and right caudate which correlates to the slight high density on the comparison head CT. There is associated subtle low T2 signal in the area with no significant gradient echo signal abnormality. The left basal ganglia region has normal MRI signal. There are small areas of calcification involving globus pallidus bilaterally. There is no brain herniation or midline shift. There are multiple focal and patchy areas of high T2 signal white matter changes throughout both cerebral hemispheres, likely representing chronic small vessel ischemic disease and mild leukoaraiosis. There is no evidence of intraparenchymal or intracranial hemorrhage. There are small extra-axial fluid collections which are similar to CSF and may be related to brain parenchymal volume loss. There is no brain herniation or midline shift. There are prominent perivascular spaces in the basal ganglia regions. There is no hydrocephalus. Basal cisterns are unremarkable. The northway of [place] vascular structures show no gross abnormality as visualized. The extracranial soft tissues, skull, and orbits are unremarkable. There is minimal mucosal thickening involving the ethmoid sinus. Mastoid air cells are clear. IMPRESSION: 1: There is no evidence of intracranial hemorrhage or acute cerebral infarct. 2: There is abnormal signal involving the right basal ganglia region consisting of elevated high T1 signal and slightly low T2 signal which correlates to the slight increased density on the comparison head CT. The left basal ganglia region has normal appearance. These findings may be seen with nonketotic hyperglycemia. These findings may also be associated with movement disorders. Clinical correlation is suggested. Given the unilateral appearance, other etiologies such as heavy metal deposition disorder, chronic liver disease, and/or intravascular hyperalimentation is suspected to be less likely. 3: Age related brain parenchymal changes. Dictated by: Dictated on workstation # [id number] Dict: 11/08/20 1631 Trans: 11/08/20 174 [facility] [id number] Interpreted by: ELISABETH SYKES MD Electronically signed by: ELISABETH SYKES MD 11/08/201739 Reviewed: Reviewed by Me Consults : Consults Notes Dr Mcmahon: Neurologist on-call at [facility] recommends we can consider an M2 branch occlusion and get a CT angiogram. He says however if we give her insulin her sugar goes down and her neurologic status improves then he would base this off of the hypoglycemia. He would not give TPA because of the subdural hematoma 10 days ago. Departure Communication (Admissions) Time/Spoke to Admitting Phy: 16:30 Dr. Barbosa graciously agrees to take the patient inpatient for social service consult, physical therapy and occupational evaluation. Impression Primary Impression: Encephalopathy Additional Impressions: Traumatic brain injury Qualified Codes: S06.9X9D - Unspecified intracranial injury with loss of consciousness of unspecified duration, subsequent encounter Hyperglycemia due to diabetes mellitus Disposition: ADMITTED INPATIENT Condition: Stable Admissions Decision to Admit Reason: Admit from ER (General) Decision to Admit/Date: Nov 08, 2020 Time/Decision to Admit Time: 16:00 Departure-Patient Inst. Referrals: NO,LOCAL PHYSICIAN (PCP/Family) Primary Care Physician WILL QUEZADA Nov 08, 2020 13:15
[2020-11-08 13:16] LABS: BASOPHILS % (AUTO) 0 % (0-10); EOSINOPHILS # (AUTO) 0.1 10^3/uL (0.0-0.3); EOSINOPHILS % (AUTO) 1 % (0-10); HEMATOCRIT 40 % (35-52); HEMOGLOBIN 13.9 g/dL (11.5-16.0); LYMPHOCYTES # (AUTO) 1.7 10^3/uL (1.0-4.0); LYMPHOCYTES % (AUTO) 18 % (12-44); MEAN CORPUSCULAR HEMOGLOBIN 30 pg (25-34); MEAN CORPUSCULAR HGB CONC 35 g/dL (32-36); MEAN CORPUSCULAR VOLUME 86 fL (80-99); MEAN PLATELET VOLUME 9.7 fL (9.0-12.2); MONOCYTES # (AUTO) 0.6 10^3/uL (0.0-1.0); MONOCYTES % (AUTO) 6 % (0-12); NEUTROPHILS # (AUTO) 6.9 10^3/uL (1.8-7.8); NEUTROPHILS % (AUTO) 74 % (42-75); PLATELET COUNT 292 10^3/uL (130-400); WHITE BLOOD COUNT 9.3 10^3/uL (4.3-11.0)
[2020-11-08 13:26] LABS: BILIRUBIN,URINE NEGATIVE (NEGATIVE); CLARITY,URINE CLOUDY; COLOR,URINE YELLOW; GLUCOSE, URINE (UA) 3+ (NEGATIVE); KETONES,URINE 1+ (NEGATIVE); LEUKOCYTE ESTERASE ,URINE NEGATIVE (NEGATIVE); NITRITE,URINE NEGATIVE (NEGATIVE); PROTEIN,URINE 2+ (NEGATIVE)
--- NOTE | 2020-11-08 13:27 | Diagnostic Imaging Report ---
PROCEDURE: CT head wo r/o stroke. TECHNIQUE: Multiple contiguous axial images were obtained through the brain without the use of intravenous contrast. Auto Exposure Controls were utilized during the CT exam to meet ALARA standards for radiation dose reduction. INDICATION: Neuro deficit, left arm weakness. COMPARISON: CT head of 10/29/2020. FINDINGS: Previously noted subdural hematoma is resolved. No new intracranial hemorrhage. Asymmetric hyperdensity in the right caudate and lentiform nuclei is more conspicuous than prior examination. No hydrocephalus or space-occupying mass. Basilar cisterns remain widely patent. No skull fracture. Paranasal sinuses and mastoid air cells are clear. IMPRESSION: 1. No new intracranial hemorrhage or features of territorial infarct. 2. Asymmetric hyperattenuation of the right caudate and lentiform nuclei can be seen with uncontrolled hyperglycemia. Since patient has repetitive neurologic symptoms, MRI of the brain without and with IV contrast is suggested for further assessment. Dictated by: Dictated on workstation # [id number]
[2020-11-08 13:28] LABS: ALBUMIN 3.9 GM/DL (3.2-4.5); POTASSIUM 3.8 MMOL/L (3.6-5.0)
[2020-11-08 13:29] LABS: CALCIUM 9.8 MG/DL (8.5-10.1)
[2020-11-08 13:31] LABS: FIBRIN DEGRADATION PRODUCTS 1.58 UG/ML (0.00-0.49); PROTHROMBIN TIME PATIENT 13.9 SEC (12.2-14.7); TOTAL PROTEIN 7.6 GM/DL (6.4-8.2)
[2020-11-08 13:34] LABS: BACTERIA,URINE FEW /HPF; SQUAMOUS EPITHELIAL CELL,UR 0-2 /HPF; YEAST,URINE LARGE /HPF
[2020-11-08 13:34] LABS: CREATININE SERUM 1.38 MG/DL (0.60-1.30)
[2020-11-08] MEDS ORDERED: inSUlin (REGULAR) HUMAN 1 UNIT/0.01 ML (CHARGE PER UNIT) IV ONE (13:45)
--- NOTE | 2020-11-08 14:20 | Diagnostic Imaging Report ---
CHEST 1 VIEW, AP/PA ONLY Indication: Left arm weakness Comparison: 10/29/2020 Findings: No focal airspace disease in the visualized lungs. Please note that the posterior lower lobes are poorly evaluated by portable radiography. No pleural effusion or pneumothorax. Normal cardiomediastinal silhouette. Impression: 1. No acute cardiopulmonary process by portable radiography. Dictated by: Dictated on workstation # [id number]
[2020-11-08] MEDS ORDERED: NS IV 1000 ML 1,000 ML IV SCH (15:00)
[2020-11-08] MEDS ORDERED: inSUlin (REGULAR) HUMAN 1 UNIT/0.01 ML (CHARGE PER UNIT) SC ONE (15:00)
[2020-11-08] MEDS ORDERED: IOHEXOL 350 MG/ML 100 ML (OMNIPAQUE 350) VIAL IV ONE (15:30)
[2020-11-08] MEDS ORDERED: HOLD METFORMIN - RECEIVED CONTRAST 20 ML VIAL IV SCH (15:30)
[2020-11-08] MEDS ORDERED: NS 100 ML (IVPB) BAG IV ONE (15:30)
[2020-11-08] MEDS ORDERED: CATHETER FLUSH 10 ML SYR IV PRN ×2 (15:30→18:00)
--- NOTE | 2020-11-08 16:15 | Diagnostic Imaging Report ---
PROCEDURE: CT angiography of the head and CT angiography of the neck with and without contrast. TECHNIQUE: Contiguous noncontrast images were obtained from the skull base through the vertex. After intravenous contrast administration, helical CT angiography of the neck was performed. Source data was reformatted into 3D MIP projections. Delayed post contrast acquisition was also obtained. Auto Exposure Controls were utilized during the CT exam to meet ALARA standards for radiation dose reduction. INDICATION: Left arm weakness. Concern for stroke. Fall recently with head bleed. History of endarterectomy. Comparison: CT head performed earlier the same date. FINDINGS: CTA Neck: The visualized portions of the aortic arch demonstrate no evidence of aneurysm or dissection. There is conventional branching pattern of the great vessels of the aorta. The brachiocephalic artery is normal in course and caliber. The right and left common carotid origins are unremarkable. The origin of the left subclavian artery is patent. The common carotid arteries and internal carotid arteries demonstrate a tortuous course. There is calcified atherosclerotic plaque in the bilateral carotid bulbs and proximal internal carotid arteries without flow-limiting stenosis. No evidence of dissection in the carotid systems. The external carotid arteries are patent and unremarkable. The vertebral arteries are codominant. The origin of the right vertebral artery is seen and is unremarkable. The origin of the left vertebral artery is seen and is unremarkable. There is no focal stenosis seen within the neck. There is no dissection. The vertebral arteries are well visualized to up to the level of the basilar artery. The osseous structures of the cervical spine are unremarkable. Included views through the lung apices demonstrate no focal consolidation. CTA brain: Atherosclerotic plaque is seen in the vasquez of the bilateral terminal internal carotid arteries without significant stenosis. No stenosis is seen in the bilateral anterior, middle, and posterior cerebral arteries. No evidence of aneurysm the [place]. In the posterior circulation, both of the vertebral arteries demonstrate normal opacification. The vertebral arteries are codominant. Both the right and left PICA arteries are identified. The basilar artery is normal in course and caliber. The terminal branch vessels including the superior cerebellar arteries unremarkable. IMPRESSION: 1. No stenosis or aneurysm in the [place]. 2. No stenosis or dissection the bilateral carotid and vertebral arteries. Dictated by: Dictated on workstation # [id number]
--- NOTE | 2020-11-08 16:48 | Diagnostic Imaging Report ---
CLINICAL INDICATION: Patient fell a week ago and was transferred to the outside hospital with slight brain bleed and UTI. Patient is here today with confusion. Patient with hyperglycemia. EXAM: MRI of the brain performed without IV contrast. Sequences include axial DWI, ADC map, axial T2, axial FLAIR, axial T1, axial gradient echo, and sagittal T1. COMPARISON: Head CT without contrast dated 11/08/2020. FINDINGS: There is high T1 signal involving the right globus pallidus, putamen, and right caudate which correlates to the slight high density on the comparison head CT. There is associated subtle low T2 signal in the area with no significant gradient echo signal abnormality. The left basal ganglia region has normal MRI signal. There are small areas of calcification involving globus pallidus bilaterally. There is no brain herniation or midline shift. There are multiple focal and patchy areas of high T2 signal white matter changes throughout both cerebral hemispheres, likely representing chronic small vessel ischemic disease and mild leukoaraiosis. There is no evidence of intraparenchymal or intracranial hemorrhage. There are small extra-axial fluid collections which are similar to CSF and may be related to brain parenchymal volume loss. There is no brain herniation or midline shift. There are prominent perivascular spaces in the basal ganglia regions. There is no hydrocephalus. Basal cisterns are unremarkable. The [place] vascular structures show no gross abnormality as visualized. The extracranial soft tissues, skull, and orbits are unremarkable. There is minimal mucosal thickening involving the ethmoid sinus. Mastoid air cells are clear. IMPRESSION: 1: There is no evidence of intracranial hemorrhage or acute cerebral infarct. 2: There is abnormal signal involving the right basal ganglia region consisting of elevated high T1 signal and slightly low T2 signal which correlates to the slight increased density on the comparison head CT. The left basal ganglia region has normal appearance. These findings may be seen with nonketotic hyperglycemia. These findings may also be associated with movement disorders. Clinical correlation is suggested. Given the unilateral appearance, other etiologies such as heavy metal deposition disorder, chronic liver disease, and/or intravascular hyperalimentation is suspected to be less likely. 3: Age related brain parenchymal changes. Dictated by: Dictated on workstation # [id number]
[2020-11-08 17:01] LABS: ALBUMIN 3.5 GM/DL (3.2-4.5); CHLORIDE 98 MMOL/L (98-107); POTASSIUM 3.2 MMOL/L (3.6-5.0); SODIUM 135 MMOL/L (135-145)
[2020-11-08 17:03] LABS: CALCIUM 9.2 MG/DL (8.5-10.1)
[2020-11-08 17:04] LABS: GLUCOSE 276 MG/DL (70-105); TOTAL PROTEIN 6.6 GM/DL (6.4-8.2)
[2020-11-08 17:05] LABS: CARBON DIOXIDE 25 MMOL/L (21-32)
[2020-11-08 17:06] LABS: BILIRUBIN,TOTAL 1.4 MG/DL (0.1-1.0)
[2020-11-08 17:07] LABS: ALKALINE PHOSPHATASE 157 U/L (40-136); GFR ESTIMATED > 60
[2020-11-08 17:08] LABS: BUN/CREATININE RATIO 24
[2020-11-08 17:10] LABS: ALANINE AMINOTRANSFERASE 16 U/L (0-55)
[2020-11-08] MEDS ORDERED: ONDANSETRON 4 MG/2 ML (SDV) Z0FRAN IV PRN (18:00)
[2020-11-08 20:00] VITALS: BP 165/80
[2020-11-08] MEDS: NS IV 1000 ML 1,000 ML IV SCH (20:07)
[2020-11-08] MEDS: inSUlin ASPART (NovoLOG) 1 UNIT/0.01 ML (CHARGE PER UNIT) SC SCH (20:11)
[2020-11-09] VITALS: BP 178/87
[2020-11-09 04:15] VITALS: BP 145/78
[2020-11-09] MEDS: NS IV 1000 ML 1,000 ML IV SCH (04:20)
[2020-11-09 06:16] LABS: BASOPHILS % (AUTO) 0 % (0-10); EOSINOPHILS # (AUTO) 0.2 10^3/uL (0.0-0.3); EOSINOPHILS % (AUTO) 2 % (0-10); HEMATOCRIT 34 % (35-52); HEMOGLOBIN 12.2 g/dL (11.5-16.0); LYMPHOCYTES # (AUTO) 2.1 10^3/uL (1.0-4.0); LYMPHOCYTES % (AUTO) 23 % (12-44); MEAN CORPUSCULAR HEMOGLOBIN 30 pg (25-34); MEAN CORPUSCULAR HGB CONC 36 g/dL (32-36); MEAN CORPUSCULAR VOLUME 85 fL (80-99); MEAN PLATELET VOLUME 9.9 fL (9.0-12.2); MONOCYTES # (AUTO) 0.7 10^3/uL (0.0-1.0); MONOCYTES % (AUTO) 7 % (0-12); NEUTROPHILS # (AUTO) 6.3 10^3/uL (1.8-7.8); NEUTROPHILS % (AUTO) 67 % (42-75); PLATELET COUNT 265 10^3/uL (130-400); WHITE BLOOD COUNT 9.3 10^3/uL (4.3-11.0)
[2020-11-09 06:34] LABS: CHLORIDE 101 MMOL/L (98-107); POTASSIUM 2.7 MMOL/L (3.6-5.0); SODIUM 140 MMOL/L (135-145)
[2020-11-09 06:35] LABS: ALBUMIN 3.4 GM/DL (3.2-4.5); CALCIUM 8.7 MG/DL (8.5-10.1)
[2020-11-09 06:36] LABS: TRIGLYCERIDES 168 MG/DL (<150); VLDL CHOLESTEROL 34 MG/DL (5-40)
[2020-11-09 06:37] LABS: GLUCOSE 115 MG/DL (70-105); TOTAL PROTEIN 6.3 GM/DL (6.4-8.2)
[2020-11-09 06:38] LABS: CARBON DIOXIDE 26 MMOL/L (21-32)
[2020-11-09] MEDS: inSUlin ASPART (NovoLOG) 1 UNIT/0.01 ML (CHARGE PER UNIT) SC SCH ×7 (06:38→21:02)
[2020-11-09 06:39] LABS: BILIRUBIN,TOTAL 1.3 MG/DL (0.1-1.0)
[2020-11-09 06:40] LABS: ALKALINE PHOSPHATASE 144 U/L (40-136); CREATININE SERUM 0.75 MG/DL (0.60-1.30); GFR ESTIMATED > 60
[2020-11-09 06:41] LABS: CHOLESTEROL 136 MG/DL (< 200)
[2020-11-09 06:42] LABS: BUN/CREATININE RATIO 16
[2020-11-09 06:43] LABS: HDL CHOLESTEROL 28 MG/DL (40-60)
[2020-11-09 06:44] LABS: ALANINE AMINOTRANSFERASE 12 U/L (0-55)
[2020-11-09 08:00] VITALS: BP 186/84
--- NOTE | 2020-11-09 09:00 | History & Physical-Hospitalist ---
PETER MALLORY, 11/09/20 0900: History of Present Illness HPI/Chief Complaint Ms. Walker is a 75-year-old female with past medical history significant for IDDM2, HTN, HLD, hypothyroidism who presented to the ED with altered mental status. During questioning, she is unable to tell me what exactly brought her to the hospital and did not realize she was in a hospital during the interview. She knows that she fell and hit the back of her head "a few days ago". The remaining HPI is per ED documentation: Patient presents ER by EMS from home with chief complaint of altered mental status. Blood sugar reads high. No history of strokes not on blood thinners. Takes lisinopril and atorvastatin. She is accompanied by her son with who gives very little history. Patient is alert to her name and remember she had a fall but does not have any pain anywhere. Unknown last well time. Unknown time of fall. She denies loss of consciousness but she does recall striking her head. Source: patient, RN/MD Exam Limitations: clinical condition (patient only oriented to self) Date Seen 11/09/20 Time Seen by a Provider: 07:45 Attending Physician Weston Pastrana MD PCP No,Local Physician Referring Physician Date of Admission Nov 08, 2020 at 16:40 Home Medications & Allergies Home Medications Reviewed patient Home Medication Reconciliation performed by pharmacy medication reconciliations program technician and/or nursing. Patients Allergies have been reviewed. Allergies Allergies Coded Allergies Penicillins (Unverified Allergy, Unknown, RASH, SOB, 11/08/20) Sulfa (Sulfonamide Antibiotics) (Unverified Allergy, Unknown, SWELLING, 11/08/20) Past Qqiufmu-Bawwuw-Asunah Hx Patient Social History Alcohol Use: Denies Use Recreational Drug Use: No Smoking Status: Never a Smoker 2nd Hand Smoke Exposure: No Recent Foreign Travel: No Contact w/other who traveled: No Recent Hopitalizations: Yes (brain bleed at [place]) Recent Infectious Disease Expo: No Past Medical History Surgeries: Tonsillectomy Cardiac: High Cholesterol, Hypertension Sexually Transmitted Disease: No Menopausal Endocrine: Diabetes, Insulin dep, Hypothyroidsim History of Blood Disorders: No Family History Heart Disease (family history of [place]) Review of Systems Constitutional: No malaise, No weakness EENTM: No blurred vision, No throat pain Respiratory: No cough, No short of breath Cardiovascular: No chest pain, No palpitations Gastrointestinal: No nausea, No vomiting Genitourinary: No dysuria, No hematuria Musculoskeletal: No muscle pain, No muscle stiffness Skin: dryness; No rash Psychiatric/Neurological: Denies Numbness, Denies Tingling Physical Exam Physical Exam Vital Signs Vital Signs - First Documented 11/08/20 12:46 Temp 36.0 Pulse 99 Resp 16 B/P (MAP) 186/95 (125) Pulse Ox 98 O2 Delivery Room Air Capillary Refill : Less Than 3 Seconds Height, Weight, BMI Height: '" Weight: lbs. oz. kg; 25.08 BMI Method: General Appearance: No Apparent Distress, WD/WN Eyes: Bilateral Eye PERRL, Bilateral Eye EOMI Neck: Non Tender, Supple Respiratory: Lungs Clear, Normal Breath Sounds Cardiovascular: Regular Rate, Rhythm, No Murmur Gastrointestinal: Normal Bowel Sounds, Non Tender, Soft Extremity: Normal Capillary Refill, No Calf Tenderness, No Pedal Edema Neurologic/Psychiatric: Alert, Other (oriented only to self) Skin: Normal Color, Warm/Dry Lymphatic: No Adenopathy Results Results/Procedures Labs Laboratory Tests 11/08/20 12:46 11/08/20 16:45 11/09/20 05:18 11/10/20 05:45 Patient resulted labs reviewed. Assessment/Plan Admission Diagnosis Encephalopathy * In the ED, believed to be secondary to hyperglycemia * Patient blood sugar is 115 today and still confused * MRI brain revealed right basal ganglia elevated high T1 signal and slightly low T2 signal which is likely due to nonketotic hyperglycemia or movement d isorder * Head CTA and CXR in ED are both unremarkable IDDM2 * Stop oral medications * Will start SSI A * Hypoglycemia protocol Elevated d-dimer * D-dimer 1.58 * Cannot start anticoagulation due to recent subdural hematoma Hypokalemia * Replace * Repeat BMP in am HTN HLD Hypothyroidism * Start home medications Diet: CHO 60 PPX: SCDs only, history of recent subdural hematoma FULL CODE Dispo: likely >2 midnights, will likely need placement in NH as patient seems confused and is not able to care for herself at home Admission Status: Inpatient Order (span 2 midnights) Clinical Quality Measures Stroke: Date of last known well: Nov 08, 2020 Symptoms onset unknown: Yes WESTON PASTRANA MD 11/09/20 1602: Past Xznztge-Setcnv-Vnbpty Hx Past Med/Social Hx: Reviewed Nursing Past Med/Soc Hx Assessment/Plan Admission Diagnosis Patient admitted due to metabolic encephalopathy. Her mentation approves to be improved from yesterday so she still has soem deficits. WIll add an ammonia level and tsh to work up. She reports noncompliance with her medications at home and is unsure when she last took them. SW reached out to daughter who is in agreement with placement if needed and referrals were made. Replace potassium and check Mag level. Will resume her home meds. Diagnosis/Problems Diagnosis/Problems (1) Hyperglycemia due to diabetes mellitus Status: Acute (2) Traumatic brain injury Status: Acute Qualifiers: Encounter type: subsequent encounter Loss of consciousness presence/duration: with LOC of unspecified duration Qualified Codes: S06.9X9D - Unspecified intracranial injury with loss of consciousness of unspecified duration, subsequent encounter (3) Encephalopathy Status: Acute (4) Uncontrolled hypertension Status: Acute (5) Subdural hemorrhage Status: Resolved Resolution Date/Time: 11/09/20 @ 16:02 Supervisory-Addendum Brief Verification & Attestation Participated in pt care: history, MDM, physical Personally performed: exam, history, MDM, supervision of care Care discussed with: Medical Student Procedures: n/a Results interpretation: Verified all documentation Verification and Attestation of Medical Student E/M Service A medical student performed and documented this service in my presence. I reviewed and verified all information documented by the medical student and made modifications to such information, when appropriate. I personally performed the physical exam and medical decision making. Weston Pastrana, Nov 09, 2020,15:58 PETER MALLORY, Nov 09, 2020 09:00 WESTON PASTRANA MD Nov 09, 2020 16:02
[2020-11-09] MEDS ORDERED: KCL 20 MEQ TAB (K-DUR) PO ONE (10:00)
[2020-11-09] MEDS ORDERED: METO50TA15 PO (10:24)
[2020-11-09] MEDS ORDERED: LEVO50TA6 PO (10:24)
[2020-11-09] MEDS ORDERED: ATOR40TA70 PO (10:24)
[2020-11-09] MEDS ORDERED: NF-GLIP2.5 PO (10:24)
[2020-11-09] MEDS ORDERED: CARV25TA PO (10:24)
[2020-11-09] MEDS ORDERED: METF750T45 PO (10:24)
[2020-11-09] MEDS ORDERED: DILT240C87 PO (10:24)
[2020-11-09] MEDS ORDERED: LISI40TA9 PO (10:24)
[2020-11-09 10:58] LABS: MAGNESIUM 1.1 MG/DL (1.6-2.4)
--- NOTE | 2020-11-09 11:57 | Physical Therapy Evaluation ---
PT Evaluation-General Medical Diagnosis Admission Date Nov 08, 2020 at 16:40 Medical Diagnosis: AMS/hyperglycemia Onset Date: Nov 08, 2020 Therapy Diagnosis Therapy Diagnosis: generalized weakness/debility Precautions Precautions/Isolations: Fall Prevention, Standard Precautions Referral Physician: Familia Reason for Referral: Evaluation/Treatment Medical History Pertinent Medical History: DM, HTN Additional Medical History Fall ~10 days ago with admit to [facility] and dismissal to home with family Current History EMS secondary to increase confusion Reviewed History: Yes Social History Home: Single Level Current Living Status: Children Prior Prior Level of Function SCALE: Activities may be completed with or without assistive devices. 9-Fgnnigcqdq-hurkypt completes the activity by him/herself with no assistance from a helper. 5-Set-up or Clean-up Assistance-helper sets up or cleans up; patient completes activity. [place] assists only prior to or following the activity. 4-Supervision or Touching Assistance-helper provides verbal cues and/or touching/steadying and/or contact guard assistance as patient completes activity. Assistance may be provided throughout the activity or intermittently. 3-Partial/Moderate Assistance-helper does LESS THAN HALF the effort. [place] lifts, holds or supports trunk or limbs, but provides less than half the effort. 2-Substantial/Maximal Assistance-helper does MORE THAN HALF the effort. [place] lifts or holds trunk or limbs and provides more than half the effort. 1-Nkddssrrg-gomleg does ALL the effort. Patient does none of the effort to complete the activity. Or, the assistance of 2 or more helpers is required for the patient to complete the activity. If activity was not attempted, code reason: 7-Patient Refused. 9-Not Applicable-not attempted and the patient did not perform the activity before the current illness, exacerbation or injury. 10-Not Attempted due to Environmental Limitations-(lack of equipment, weather restraints, etc.). 88-Not Attempted due to Medical Conditions or Safety Concerns. Bed Mobility: 6 Transfers (B,C,W/C): 6 Gait: 6 Stairs: 6 Indoor Mobility (Ambulation): Independent Stairs: Independent Prior Devices Use: None caregiver for MR gutierrez per report PT Evaluation-Current Subjective Patient is very confused but agrees to PT. Objective Patient Orientation: Confused Attachments: Reinoso Catheter, IV ROM/Strength ROM Lower Extremities bilateral LE WFL Strength Lower Extremities left LE 3/5 grossly/right LE 4/5 grossly (unable to follow simple direction to perform formal MMT) Integumentary/Posture Integumentary refer to nursing notes Bowel Incontinence: No Bladder Incontinence: Reinoso Cath Posture WFL Neuromuscular (Tone, Coordination, Reflexes) noted left neglect and ataxia Sensory Vision: Functional Hearing: Functional Transfers Roll Left to Right (QC): 3 Sit to Lying (QC): 2 Lying to Sitting/Side of Bed(Q: 2 Sit to Stand (QC): 2 Chair/Esm-ul-Hqanc Xfer(QC): 2 extreme difficulty with negotiating in room to turn to sit in recliner requiring verbal and tactile cues to attain Gait Does the Patient Walk?: Yes Mode of Locomotion: Walk Anticipated Mode of Locomotion: Walk Walk 10 feet (QC): 3 Walk 50 ft with 2 Turns(QC): 3 Walk 150 ft (QC): 3 Distance: 150' Gait Assistive Device: FWW Comments/Gait Description noted left neglect with multiple verbal and tactile cues for body placement in FWW Balance Sitting Static: Fair Sitting Dynamic: Fair Standing Static: Fair Standing Dynamic: Fair Picking up an Object (QC): 88 Assessment/Needs 75 y.o. female,will benefit from skilled PT to address functional strength and m obility to improve current LOF to safely return to home, with family, at maximum LOF. Rehab Potential: Fair PT Short Term Goals Short Term Goals Time Frame: Nov 26, 2020 Roll Left & Right: 4 Sit to lyin Lying to sitting on side of be: 4 Sit to stand: 4 Chair/gpg-ta-jpxnt transfer: 4 Toilet transfer: 4 Walk 10 feet: 4 Walk 50 feet with two turns: 4 Walk 150 feet: 4 PT Intermediate Goals Intermediate Goals PT Equipment Services Associate Goals Time Frame: Dec 04, 2020 Roll Left & Right (QC): 5 Sit to Lying (QC): 5 Lying-Sitting on Side/Bed(QC): 5 Sit to Stand (QC): 5 Chair/Yni-sf-Ifehx Xfer(QC): 5 Toilet Transfer (QC): 5 Car Transfer (QC): 5 Does the Patient Walk: Yes Walk 10 feet (QC): 4 Walk 50ft with 2 Turns (QC): 4 Walk 150 ft (QC): 4 1 Step (curb) (QC): 4 PT Plan Problem List Problem List: Activity Tolerance, Functional Strength, Safety, Balance, Gait, Transfer, Bed Mobility, Other (left neglect) Treatment/Plan Treatment Plan: Continue Plan of Care Treatment Plan: Bed Mobility, Education, Functional Activity Nerissa, Functional Strength, Gait, Safety, Therapeutic Exercise, Transfers Treatment Duration: Dec 04, 2020 Frequency: 6 times per week Estimated Hrs Per Day: .25 hour per day Time/GCodes Time In: 1125 Time Out: 1141 Total Billed Treatment Time: 16 Total Billed Treatment 1 visit [facility] 16 min EDMOND DRAKE PT Nov 09, 2020 11:57
[2020-11-09 12:00] VITALS: BP 188/133
[2020-11-09] MEDS ORDERED: lisINopril 40 MG (PRINIVIL) TABLET PO NR (14:00)
[2020-11-09] MEDS ORDERED: meTOprolol TARTRATE 50 MG (LOPRESSOR) TAB PO NR (14:00)
[2020-11-09] MEDS ORDERED: CARVEDILOL 12.5 MG (COREG) TABLET PO NR (14:00)
[2020-11-09] MEDS: MAGNESIUM 1 GM/100 ML IVPB 100 ML IV SCH ×2 (14:12→15:31)
[2020-11-09] MEDS: ACETAMINOPHEN 500 MG TAB (TYLENOL) PO PRN ×2 (14:19→20:44)
--- NOTE | 2020-11-09 14:47 | Occupational Therapy Eval ---
OT Evaluation-General/PLF Medical Diagnosis Admission Date Nov 08, 2020 at 16:40 Medical Diagnosis: Neuro-strok like symptoms Onset Date: Nov 08, 2020 Therapy Diagnosis Therapy Diagnosis: AMS, weakness Precautions Precautions/Isolations: Fall Prevention, Standard Precautions Safety Interventions: Bed Exit Alarm Weight Bear Status Weight Bearing Restriction: Weight Bearing/Tolerated Referral Physician: Familia Referral Reason: Activity Tolerance, Self Care, Evaluation/Treatment, Strengthening/ROM Medical History Pertinent Medical History: DM, HTN Additional Medical History Right parotidectomy Current History Pt. lives at home with son, who has special needs. She fell approximately 2 weeks ago and was treated for a subdural hematoma. Pt. stayed with her daughter, but apparently came home recently. She began having stroke like symptoms. EMS called and pt. had elevated blood sugar. MRI completed and negative for CVA. Reviewed History: Yes Social History Home: Single Level Current Living Status: Children Entry Into Home: Stairs Without Railing Steps Into Home: 3 ADL-Prior Level of Function SCALE: Activities may be completed with or without assistive devices. 6-Ehvirsjfum-qlvklnr completes the activity by him/herself with no assistance from a helper. 5-Set-up or Clean-up Assistance-helper sets up or cleans up; patient completes activity. [place] assists only prior to or following the activity. 4-Supervision or Touching Assistance-helper provides verbal cues and/or touching/steadying and/or contact guard assistance as patient completes activity. Assistance may be provided throughout the activity or intermittently. 3-Partial/Moderate Assistance-helper does LESS THAN HALF the effort. [place] lifts, holds or supports trunk or limbs, but provides less than half the effort. 2-Substantial/Maximal Assistance-helper does MORE THAN HALF the effort. [place] lifts or holds trunk or limbs and provides more than half the effort. 6-Qkghuusuw-tmluxq does ALL the effort. Patient does none of the effort to complete the activity. Or, the assistance of 2 or more helpers is required for the patient to complete the activity. If activity was not attempted, code reason: 7-Patient Refused. 9-Not Applicable-not attempted and the patient did not perform the activity before the current illness, exacerbation or injury. 10-Not Attempted due to Environmental Limitations-(lack of equipment, weather restraints, etc.). 88-Not Attempted due to Medical Conditions or Safety Concerns. ADL PLOF Comments Pt. states that she was independent prior to this hospitalization and earlier fall. She states that her son lives with her and needs physical assistance at times. She does not use or own a walker. Self Care: Unknown Functional Cognition: Unknown DME/Equipment: Tub/Shower Drive Self: Yes OT Current Status Subjective No pain reported at this time. However, pt. is confused during evaluation. Appearance Pt. is up in chair. She is alert but is somewhat confused in her answers. After evaluation, nursing notified of confusion. Pt. sitting with chair alarm and all needs met. Mental Status/Objective Patient Orientation: Confused Current Hand Dominance: Left Upper Extremity ROM Pt. states that her arms are "just fine" but only raises them to approximately 100 degrees when asked to flex bilateral shoulders. Upper Extremity Strength 3/5 bilateral UE strength within available range. ADL-Treatment On/Off Footwear (QC): 3 (Pt. is able to bring her foot up to her, and doff her slipper sock. However, upon attempting to put it back on, pt. doubles it over, gets it caught on her toes, and continues attempting to pull it on without success or awareness.) Other Treatments Pt. up in chair. Pt. participates in UE ROM and MMT. She is able to give OT details about her home and her son, but is often confused as well during conversation. She will began talking about something entirely different during the conversation. Questions are repeated multiple times. Pt. requires max assist for sit-stand. All needs are met up in chair. Chair alarm set and pt. with call light and table in front. Nurse aide notified of confusion. Tele- sitter in place. Education OT Patient Education: Correct positioning, Modified ADL techniques, Progress toward Goal/Update tx plan, Purpose of tx/functional activities, Reviewed precautions, Rehab process, Transfer techniques Teaching Recipient: Patient Teaching Methods: Demonstration, Discussion Response to Teaching: Unable to Comprehend, Reinforcement Needed OT Short Term Goals Short Term Goals Time Frame: Nov 16, 2020 Eatin Oral hygiene: 3 Toileting hygiene: 3 Upper body dressin Lower body dressin Putting on/taking off footwear: 3 OT Fdc Goals Fdc Goals Time Frame: Nov 23, 2020 Eating (QC): 5 Oral Hygiene (QC): 5 Toileting Hygiene (QC): 4 Shower/Bathe Self (QC): 4 Upper Body Dressing (QC): 5 Lower Body Dressing (QC): 4 On/Off Footwear (QC): 4 Additional Goals: 1-Demonstrate ADL Tasks, 2-Verbalize Understanding, 3- ImproveStrength/Nerissa 1=Demonstrate adherence to instructed precautions during ADL tasks. 2=Patient will verbalize/demonstrate understanding of assistive devices/modifications for ADL. 3=Patient will improve strength/tolerance for activity to enable patient to perform ADL's. OT Education/Plan Problem List/Assessment Assessment: Decreased Activ Tolerance, Decreased Safety Aware, Decreased UE Strength, Dependent Transfers, Impaired Cognition, Impaired Funct Balance, Impaired I ADL's, Impaired Self-Care Skills Discharge Recommendations Plan/Recommendations: Continue POC Comment Equipment needs and discharge location to be determined. Treatment Plan/Plan of Care Treatment,Training & Education: Yes Patient would benefit from OT for education, treatment and training to promote independence in ADL's, mobility, safety and/or upper extremity function for ADL's. Plan of Care: ADL Retraining, Functional Mobility, UE Funct Exercise/Act Treatment Duration: Nov 23, 2020 Frequency: 5 times per week Estimated Hrs Per Day: .25 hour per day Agreement: Yes Rehab Potential: Fair Time/GCodes Start Time: 11:50 Stop Time: 12:07 Total Time Billed (hr/min): 17 Billed Treatment Time 1, BRIELLE PEDRAZA OT Nov 09, 2020 14:47
[2020-11-09 16:00] VITALS: BP 152/91
[2020-11-09 20:00] VITALS: BP 150/72
[2020-11-09] MEDS: meTOprolol TARTRATE 50 MG (LOPRESSOR) TAB PO SCH (20:43)
[2020-11-09] MEDS: CARVEDILOL 12.5 MG (COREG) TABLET PO SCH (20:44)
[2020-11-09] MEDS ORDERED: NON-FORMULARY MEDICATION 1 EA EA (Carvedilol 25 MG) PO SCH (21:00)
[2020-11-10] VITALS (9 sets, daily range): BP systolic 125–198; BP diastolic 60–104
[2020-11-10] MEDS ORDERED: lisINopril 40 MG (PRINIVIL) TABLET ONE (05:05)
[2020-11-10] MEDS: inSUlin ASPART (NovoLOG) 1 UNIT/0.01 ML (CHARGE PER UNIT) SC SCH ×7 (05:05→20:53)
[2020-11-10] MEDS: LEVOTHYROXINE 50 MCG (LEVOTHROID) TAB PO SCH (05:09)
[2020-11-10] MEDS: CARVEDILOL 12.5 MG (COREG) TABLET PO SCH ×2 (05:09→20:49)
[2020-11-10] MEDS: meTOprolol TARTRATE 50 MG (LOPRESSOR) TAB PO SCH ×2 (05:09→20:49)
[2020-11-10] MEDS: lisINopril 40 MG (PRINIVIL) TABLET PO SCH (05:10)
[2020-11-10 05:55] LABS: HEMOGLOBIN 12.3 g/dL (11.5-16.0); MEAN PLATELET VOLUME 9.1 fL (9.0-12.2); WHITE BLOOD COUNT 8.1 10^3/uL (4.3-11.0)
[2020-11-10 06:07] LABS: CHLORIDE 101 MMOL/L (98-107); SODIUM 136 MMOL/L (135-145)
[2020-11-10 06:08] LABS: GLUCOSE 198 MG/DL (70-105)
[2020-11-10 06:10] LABS: CARBON DIOXIDE 23 MMOL/L (21-32)
[2020-11-10 06:12] LABS: CREATININE SERUM 0.83 MG/DL (0.60-1.30); GFR ESTIMATED > 60
[2020-11-10 06:13] LABS: BUN/CREATININE RATIO 17
[2020-11-10] MEDS ORDERED: NON-FORMULARY MEDICATION 1 EA EA (Diltiazem HCl (Diltiazem ER) 240 MG) PO SCH (09:00)
--- NOTE | 2020-11-10 09:57 | Progress Note - Hospitalist ---
MOHAMUDPETER, 11/10/20 0957: Subjective HPI/CC On Admission Date Seen by Provider: Nov 10, 2020 Time Seen by Provider: 09:48 Ms. Walker is a 75-year-old female with past medical history significant for IDDM2, HTN, HLD, hypothyroidism who presented to the ED with altered mental status. During questioning, she is unable to tell me what exactly brought her to the hospital and did not realize she was in a hospital during the interview. She knows that she fell and hit the back of her head "a few days ago". The remaining HPI is per ED documentation: Patient presents ER by EMS from home with chief complaint of altered mental status. Blood sugar reads high. No history of strokes not on blood thinners. Takes lisinopril and atorvastatin. She is accompanied by her son with who gives very little history. Patient is alert to her name and remember she had a fall but does not have any pain anywhere. Unknown last well time. Unknown time of fall. She denies loss of consciousness but she does recall striking her head. Subjective/Events-last exam Ms. Walker was seen and examined this morning in f/u for altered mental status. She has just completed working with PT and OT during my interview. States she is heading to the [facility] and they are paying for her way. She has no concerns this morning and states she is feeling better. Denied chest pain, shortness of breath, nausea/vomiting. Objective Exam Vital Signs Vital Signs Date Time Temp Pulse Resp B/P (MAP) Pulse Ox O2 Delivery O2 Flow Rate FiO2 11/10/20 09:00 98 Room Air 11/10/20 08:40 154/90 (111) 11/10/20 07:58 36.3 55 18 Capillary Refill : Less Than 3 Seconds General Appearance: No Apparent Distress, WD/WN HEENT: PERRL/EOMI Neck: Non Tender, Supple Respiratory: Lungs Clear, Normal Breath Sounds Cardiovascular: Regular Rate, Rhythm, No Murmur Gastrointestinal: Normal Bowel Sounds, Non Tender, Soft Extremity: Normal Capillary Refill, No Calf Tenderness, No Pedal Edema Neurologic/Psychiatric: Alert, Disoriented (alert and oriented to self and year) Skin: Normal Color, Warm/Dry Lymphatic: No Adenopathy Results/Procedures Lab Laboratory Tests 11/10/20 05:45 Patient resulted labs reviewed. Assessment/Plan Assessment and Plan Assess & Plan/Chief Complaint Dementia * Per SS note, daughter states patient has been having rapid decline in functional and mental status since July * Altered mentation likely due to dementia vs reversible cause * MRI brain revealed right basal ganglia elevated high T1 signal and slightly low T2 signal which is likely due to nonketotic hyperglycemia or movement disorder * SS consulted, appreciate their assistance * Having some agitation at night, will order PO risperdol IDDM2 * Stop oral medications * Will start SSI A * Hypoglycemia protocol Elevated d-dimer * D-dimer 1.58 * Cannot start anticoagulation due to recent subdural hematoma Hypokalemia * Replace * Repeat BMP in am HTN HLD Hypothyroidism * Continue home medications * TSH wnl Diet: CHO 60 PPX: SCDs only, history of recent subdural hematoma FULL CODE Dispo: likely >2 midnights, will likely need placement in NH as patient seems confused and is not able to care for herself at home Clinical Quality Measures Stroke: Date of last known well: Nov 08, 2020 Symptoms onset unknown: Yes WESTON BARBOSA MD 11/10/20 1514: Assessment/Plan Assessment and Plan Assess & Plan/Chief Complaint Patient reports doing better. Orientation remains around the same but knew the year this time but not her location. Will likely benefit from placement and awaiting insurance approval of this. Family has selected [facility]. I attempted to contact the daughter but no voicemail set up and no answer. Replace K and check again tomorrow AM. Supervisory-Addendum Brief Verification & Attestation Participated in pt care: history, MDM, physical Personally performed: exam, history, MDM, supervision of care Care discussed with: Medical Student Procedures: n/a Results interpretation: Verified all documentation Verification and Attestation of Medical Student E/M Service A medical student performed and documented this service in my presence. I reviewed and verified all information documented by the medical student and made modifications to such information, when appropriate. I personally performed the physical exam and medical decision making. Weston Barbosa, Nov 10, 2020,15:10 PETER MALLORY, Nov 10, 2020 09:57 WESTON BARBOSA MD Nov 10, 2020 15:14
[2020-11-10] MEDS: risperiDONE 0.5 MG (RisperDAL) TABLET PO SCH ×2 (10:01→20:49)
--- NOTE | 2020-11-10 10:07 | Physical Therapy Daily Note ---
PT Daily Note-Current Subjective Patient walking in hallway with nursing, PT will take over, patient has no complaints of pain. Appearance Patient in recliner post tx with nurse call, phone, tray, legs elevated, has sitter in the room and chair alarm on. Mental Status Patient Orientation: Person, Confused Transfers SCALE: Activities may be completed with or without assistive devices. 1-Kgydvejvfa-mownzsf completes the activity by him/herself with no assistance from a helper. 5-Set-up or Clean-up Assistance-helper sets up or cleans up; patient completes activity. [place] assists only prior to or following the activity. 4-Supervision or Touching Assistance-helper provides verbal cues and/or touching/steadying and/or contact guard assistance as patient completes activity. Assistance may be provided throughout the activity or intermittently. 3-Partial/Moderate Assistance-helper does LESS THAN HALF the effort. [place] lifts, holds or supports trunk or limbs, but provides less than half the effort. 2-Substantial/Maximal Assistance-helper does MORE THAN HALF the effort. [place] lifts or holds trunk or limbs and provides more than half the effort. 3-Kcjbownjz-cqqhlp does ALL the effort. Patient does none of the effort to complete the activity. Or, the assistance of 2 or more helpers is required for the patient to complete the activity. If activity was not attempted, code reason: 7-Patient Refused. 9-Not Applicable-not attempted and the patient did not perform the activity before the current illness, exacerbation or injury. 10-Not Attempted due to Environmental Limitations-(lack of equipment, weather restraints, etc.). 88-Not Attempted due to Medical Conditions or Safety Concerns. Sit to Stand (QC): 4 Chair/Kxa-qp-Jiddj Xfer(QC): 4 Gait Training Distance: 400' Walk 10 feet (QC): 4 Walk 50 ft with 2 Turns(QC): 4 Walk 150 ft (QC): 4 Gait Persons Needed: 1 Gait Assistive Device: FWW extremely slow ambulation but no LOB or unsteadiness, patient needs constant redirection due to confusion Exercises Seated Therapy Exercises: Ankle pumps, Long arc quads Seated Reps: 20 Treatments ambulation, LE exercise, transfers Assessment Current Status: Fair Progress improving endurance, no LOB PT Short Term Goals Short Term Goals Time Frame: Nov 26, 2020 Roll Left & Right: 4 Sit to lyin Lying to sitting on side of be: 4 Sit to stand: 4 Chair/kvd-ix-dteqt transfer: 4 Toilet transfer: 4 Walk 10 feet: 4 Walk 50 feet with two turns: 4 Walk 150 feet: 4 PT Placement Director Goals Fdc Goals PT Fdc Goals Time Frame: Dec 04, 2020 Roll Left & Right (QC): 5 Sit to Lying (QC): 5 Lying-Sitting on Side/Bed(QC): 5 Sit to Stand (QC): 5 Chair/Rny-pd-Mpmjm Xfer(QC): 5 Toilet Transfer (QC): 5 Car Transfer (QC): 5 Does the Patient Walk: Yes Walk 10 feet (QC): 4 Walk 50ft with 2 Turns (QC): 4 Walk 150 ft (QC): 4 1 Step (curb) (QC): 4 PT Plan Problem List Problem List: Activity Tolerance, Functional Strength, Safety, Balance, Gait, Transfer, Bed Mobility, ROM Treatment/Plan Treatment Plan: Continue Plan of Care Treatment Plan: Bed Mobility, Education, Functional Activity Nerissa, Functional Strength, Gait, Safety, Therapeutic Exercise, Transfers Treatment Duration: Dec 04, 2020 Frequency: 6 times per week Estimated Hrs Per Day: .25 hour per day Safety Risks/Education Patient Education: Gait Training, Transfer Techniques, Correct Positioning, Safety Issues Teaching Recipient: Patient Teaching Methods: Demonstration, Discussion Response to Teaching: Reinforcement Needed Time/GCodes Time In: 0939 Time Out: 0950 Total Billed Treatment Time: 11 Total Billed Treatment 1 visit GT BrooklynDIDI ROBERTSON PT Nov 10, 2020 10:07
--- NOTE | 2020-11-10 11:04 | Occupational Ther Daily Note ---
OT Current Status-Daily Note Subjective Pt alert, oriented to person/ place, reoriented to situation. Pt states random statements like, "I went home last night and the house was tore apart," etc. Denies pain. Mental Status/Objective Patient Orientation: Person, Place Attachments: Reinoso Catheter ADL-Treatment Therapy Code Descriptions/Definitions Functional [place] Measure: 0=Not Assessed/NA 4=Minimal Assistance 1=Total Assistance 5=Supervision or Setup 2=Maximal Assistance 6=Modified [place] 3=Moderate Assistance 7=Complete IndependenceSCALE: Activities may be completed with or without assistive devices. 6-Slsjglrbsv-skhmyoy completes the activity by him/herself with no assistance from a helper. 5-Set-up or Clean-up Assistance-helper sets up or cleans up; patient completes activity. [place] assists only prior to or following the activity. 4-Supervision or Touching Assistance-helper provides verbal cues and/or touching/steadying and/or contact guard assistance as patient completes activity. Assistance may be provided throughout the activity or intermittently. 3-Partial/Moderate Assistance-helper does LESS THAN HALF the effort. [place] lifts, holds or supports trunk or limbs, but provides less than half the effort. 2-Substantial/Maximal Assistance-helper does MORE THAN HALF the effort. [place] lifts or holds trunk or limbs and provides more than half the effort. 7-[place]-hebauc does ALL the effort. Patient does none of the effort to complete the activity. Or, the assistance of 2 or more helpers is required for the patient to complete the activity. If activity was not attempted, code reason: 7-Patient Refused. 9-Not Applicable-not attempted and the patient did not perform the activity before the current illness, exacerbation or injury. 10-Not Attempted due to Environmental Limitations-(lack of equipment, weather restraints, etc.). 88-Not Attempted due to Medical Conditions or Safety Concerns. Toileting Hygiene (QC): 5 (s/u) Toilet Transfer (QC): 3 ([place] sit to stand from toilet.) Other Treatment Pt completes sit to stand with mod A from recliner. Pt completes UE ther ex while in stance with CGA throughout, no LOB/ no support of BUE on walker. Pt completes ambulation to toilet with walker, CGA. Sits on toilet with CGA. Pt denies ability for BM, cleanses with s/u on toilet. Pant donning/ doffing with [place]. Returns to chair with all needs met, call light in reach, pt's chair alarm on and nursing present. Education OT Patient Education: Correct positioning, Exercise program, Progress toward Goal/Update tx plan, Transfer techniques Teaching Recipient: Patient Teaching Methods: Demonstration, Discussion Response to Teaching: Verbalize Understanding, Return Demonstration, Reinforcement Needed OT Short Term Goals Short Term Goals Time Frame: Nov 16, 2020 Eatin Oral hygiene: 3 Toileting hygiene: 3 Upper body dressin Lower body dressin Putting on/taking off footwear: 3 OT Snf Goals Liquid [employer] Treatment Plant Operator Goals Time Frame: Nov 23, 2020 Eating (QC): 5 Oral Hygiene (QC): 5 Toileting Hygiene (QC): 4 Shower/Bathe Self (QC): 4 Upper Body Dressing (QC): 5 Lower Body Dressing (QC): 4 On/Off Footwear (QC): 4 Additional Goals: 1-Demonstrate ADL Tasks, 2-Verbalize Understanding, 3- ImproveStrength/Nerissa 1=Demonstrate adherence to instructed precautions during ADL tasks. 2=Patient will verbalize/demonstrate understanding of assistive devices/modifications for ADL. 3=Patient will improve strength/tolerance for activity to enable patient to perform ADL's. OT Education/Plan Problem List/Assessment Assessment: Decreased Activ Tolerance, Decreased Safety Aware, Decreased UE Strength, Dependent Transfers, Impaired Cognition, Impaired I ADL's, Impaired Self-Care Skills Discharge Recommendations Plan/Recommendations: Continue POC Therapy Discharge Recommendati: 24 Hour Supervision, Post Acute OT Treatment Plan/Plan of Care Treatment,Training & Education: Yes Patient would benefit from OT for education, treatment and training to promote independence in ADL's, mobility, safety and/or upper extremity function for ADL's. Plan of Care: ADL Retraining, Functional Mobility, UE Funct Exercise/Act Treatment Duration: Nov 23, 2020 Frequency: 5 times per week Estimated Hrs Per Day: .25 hour per day Agreement: Yes Rehab Potential: Fair Time/GCodes Start Time: 10:40 Stop Time: 10:58 Total Time Billed (hr/min): 18 Billed Treatment Time 1, ADL (18) NANCY CHUN OTR Nov 10, 2020 11:04
[2020-11-10] MEDS ORDERED: KCL 20 MEQ TAB (K-DUR) PO NR (14:15)
[2020-11-10] MEDS: ACETAMINOPHEN 500 MG TAB (TYLENOL) PO PRN (20:50)
[2020-11-11 04:05] VITALS: BP 138/81
[2020-11-11 06:33] LABS: HEMOGLOBIN 12.3 g/dL (11.5-16.0); MEAN PLATELET VOLUME 9.6 fL (9.0-12.2)
[2020-11-11 06:46] LABS: POTASSIUM 3.3 MMOL/L (3.6-5.0)
[2020-11-11 06:47] LABS: CALCIUM 9.1 MG/DL (8.5-10.1)
[2020-11-11 06:51] LABS: CREATININE SERUM 1.17 MG/DL (0.60-1.30)
[2020-11-11 06:53] LABS: MAGNESIUM 1.5 MG/DL (1.6-2.4)
[2020-11-11] MEDS: inSUlin ASPART (NovoLOG) 1 UNIT/0.01 ML (CHARGE PER UNIT) SC SCH ×7 (07:00→20:52)
[2020-11-11] MEDS: LEVOTHYROXINE 50 MCG (LEVOTHROID) TAB PO SCH (07:00)
[2020-11-11 07:38] VITALS: BP 150/70
[2020-11-11] MEDS: lisINopril 40 MG (PRINIVIL) TABLET PO SCH (08:03)
[2020-11-11] MEDS: CARVEDILOL 12.5 MG (COREG) TABLET PO SCH ×2 (08:03→20:51)
[2020-11-11] MEDS: risperiDONE 0.5 MG (RisperDAL) TABLET PO SCH ×2 (08:03→20:51)
[2020-11-11] MEDS: meTOprolol TARTRATE 50 MG (LOPRESSOR) TAB PO SCH ×2 (08:03→20:51)
--- NOTE | 2020-11-11 08:47 | Progress Note - Hospitalist ---
RUDYEUGENE,PETER, 11/11/20 0847: Subjective HPI/CC On Admission Date Seen by Provider: Nov 11, 2020 Time Seen by Provider: 07:55 Ms. Walker is a 75-year-old female with past medical history significant for IDDM2, HTN, HLD, hypothyroidism who presented to the ED with altered mental status. During questioning, she is unable to tell me what exactly brought her to the hospital and did not realize she was in a hospital during the interview. She knows that she fell and hit the back of her head "a few days ago". The remaining HPI is per ED documentation: Patient presents ER by EMS from home with chief complaint of altered mental status. Blood sugar reads high. No history of strokes not on blood thinners. Takes lisinopril and atorvastatin. She is accompanied by her son with who gives very little history. Patient is alert to her name and remember she had a fall but does not have any pain anywhere. Unknown last well time. Unknown time of fall. She denies loss of consciousness but she does recall striking her head. Subjective/Events-last exam Ms. Walker was seen and examined in f/u for altered mental status. She is very pleasant today and just finished her breakfast. She denies any chest pain, shortness of breath, nausea, vomiting. Working with PT and OT. Objective Exam Vital Signs Vital Signs Date Time Temp Pulse Resp B/P (MAP) Pulse Ox O2 Delivery O2 Flow Rate FiO2 11/11/20 08:00 Room Air 11/11/20 07:38 36.2 63 16 150/70 (96) 97 Capillary Refill : Less Than 3 SecondsLess Than 3 Seconds General Appearance: No Apparent Distress, WD/WN HEENT: PERRL/EOMI Neck: Non Tender, Supple Respiratory: Lungs Clear, Normal Breath Sounds Cardiovascular: Regular Rate, Rhythm, No Murmur Gastrointestinal: Normal Bowel Sounds, Non Tender, Soft Extremity: Normal Capillary Refill, No Calf Tenderness Neurologic/Psychiatric: Alert, Disoriented (oriented to self and year) Skin: Normal Color, Warm/Dry Lymphatic: No Adenopathy Results/Procedures Lab Laboratory Tests 11/11/20 06:03 Patient resulted labs reviewed. Assessment/Plan Assessment and Plan Assess & Plan/Chief Complaint Dementia * Per SS note, daughter states patient has been having rapid decline in functional and mental status since July * Altered mentation likely due to dementia vs reversible cause * MRI brain revealed right basal ganglia elevated high T1 signal and slightly low T2 signal which is likely due to nonketotic hyperglycemia or movement disorder * SS consulted, appreciate their assistance * Continue PO risperdol * Awaiting placement in [place] for patient IDDM2 * Stop oral medications * Continue SSI A * Hypoglycemia protocol Elevated d-dimer * D-dimer 1.58 * Cannot start anticoagulation due to recent subdural hematoma Hypokalemia * Replace * Repeat BMP in am HTN HLD Hypothyroidism * Continue home medications * TSH wnl Diet: CHO 60 PPX: SCDs only, history of recent subdural hematoma FULL CODE Dispo: likely >2 midnights, will likely need placement in NH as patient seems confused and is not able to care for herself at home Clinical Quality Measures Stroke: Date of last known well: Nov 08, 2020 Symptoms onset unknown: Yes WESTON BARBOSA MD 11/11/20 1419: Assessment/Plan Assessment and Plan Assess & Plan/Chief Complaint Patient reports feeling doing well. She did have an incident while walking yesterday where she got pretty weak. Encouraged her to continue to work with PT and work on strengthening. Discussed with her the plan to hopefully discharge to a SNF for continued strengthening. Fasting blood sugar 244 this AM. Will increase Levemir to 15 units nightly. director of managed services consulted to assistance with placement upon discharge. Diagnosis/Problems Diagnosis/Problems (1) Uncontrolled hypertension Status: Acute (2) Subdural hemorrhage Status: Resolved Resolution Date/Time: 11/09/20 @ 16:02 (3) Hyperglycemia due to diabetes mellitus Status: Acute (4) Traumatic brain injury Status: Acute Qualifiers: Qualified Codes: S06.9X9D - Unspecified intracranial injury with loss of consciousness of unspecified duration, subsequent encounter (5) Encephalopathy Status: Acute Supervisory-Addendum Brief Verification & Attestation Participated in pt care: history, MDM, physical Personally performed: exam, history, MDM, supervision of care Care discussed with: Medical Student Procedures: n/a Results interpretation: Verified all documentation Verification and Attestation of Medical Student E/M Service A medical student performed and documented this service in my presence. I reviewed and verified all information documented by the medical student and made modifications to such information, when appropriate. I personally performed the physical exam and medical decision making. Weston Barbosa, Nov 11, 2020,14:16 PETER MALLORY, Nov 11, 2020 08:47 WESTON BARBOSA MD Nov 11, 2020 14:19
--- NOTE | 2020-11-11 09:58 | Occupational Ther Daily Note ---
OT Current Status-Daily Note Subjective Pt up with histology aide going to bathroom. Pt agrees for OT to take over, denies pain. Less redirective cues required today than yesterday's tx. ADL-Treatment Therapy Code Descriptions/Definitions Functional [place] Measure: 0=Not Assessed/NA 4=Minimal Assistance 1=Total Assistance 5=Supervision or Setup 2=Maximal Assistance 6=Modified [place] 3=Moderate Assistance 7=Complete IndependenceSCALE: Activities may be completed with or without assistive devices. 6-Wplmnlblij-toknlxl completes the activity by him/herself with no assistance from a helper. 5-Set-up or Clean-up Assistance-helper sets up or cleans up; patient completes activity. [place] assists only prior to or following the activity. 4-Supervision or Touching Assistance-helper provides verbal cues and/or touching/steadying and/or contact guard assistance as patient completes activity. Assistance may be provided throughout the activity or intermittently. 3-Partial/Moderate Assistance-helper does LESS THAN HALF the effort. [place] lifts, holds or supports trunk or limbs, but provides less than half the effort. 2-Substantial/Maximal Assistance-helper does MORE THAN HALF the effort. [place] lifts or holds trunk or limbs and provides more than half the effort. 2-Juzpvwiro-mjbqgx does ALL the effort. Patient does none of the effort to complete the activity. Or, the assistance of 2 or more helpers is required for the patient to complete the activity. If activity was not attempted, code reason: 7-Patient Refused. 9-Not Applicable-not attempted and the patient did not perform the activity before the current illness, exacerbation or injury. 10-Not Attempted due to Environmental Limitations-(lack of equipment, weather restraints, etc.). 88-Not Attempted due to Medical Conditions or Safety Concerns. Eating (QC): 6 Oral Hygiene (QC): 5 (s/u with items in front of pt while seated.) Shower/Bathe Self (QC): 7 (completed earlier this am. Pt states she required minimal help from histology aide, histology aide is asked about shower, however, this NA states that planer operator showered pt.) Upper Body Dressing (QC): 5 (s/u) Lower Body Dressing (QC): 4 (CGA during doffing to knees/ donning over hips during toileting.) Toileting Hygiene (QC): 4 (SUP, completes sitting. OT applies lotion to rubored bottom.) Toilet Transfer (QC): 4 (SBA during sit/ stand.) Other Treatment Pt completes stand to sit at toilet with guiding of hips/ CGA. Completes toileting as outlined. SBA during hand hygiene. Ambulates to reclienr, chair alarm on. Pt given blanket and pt agrees to oral care, completes as outlined. Pt left with all needs met, call light in reach, pt's call light on lap. Education OT Patient Education: Correct positioning, Progress toward Goal/Update tx plan, Purpose of tx/functional activities, Safety issues, Transfer techniques Teaching Recipient: Patient Teaching Methods: Demonstration, Discussion Response to Teaching: Verbalize Understanding, Return Demonstration, Reinforcement Needed OT Short Term Goals Short Term Goals Time Frame: Nov 16, 2020 Eatin Oral hygiene: 3 Toileting hygiene: 3 Upper body dressin Lower body dressin Putting on/taking off footwear: 3 OT Senior Client Advisor Goals Senior Client Advisor Goals Time Frame: Nov 23, 2020 Eating (QC): 5 Oral Hygiene (QC): 5 Toileting Hygiene (QC): 4 Shower/Bathe Self (QC): 4 Upper Body Dressing (QC): 5 Lower Body Dressing (QC): 4 On/Off Footwear (QC): 4 Additional Goals: 1-Demonstrate ADL Tasks, 2-Verbalize Understanding, 3-ImproveStrength/Nerissa 1=Demonstrate adherence to instructed precautions during ADL tasks. 2=Patient will verbalize/demonstrate understanding of assistive devices/modifications for ADL. 3=Patient will improve strength/tolerance for activity to enable patient to perform ADL's. OT Education/Plan Problem List/Assessment Assessment: Decreased Activ Tolerance, Decreased Safety Aware, Decreased UE Strength, Dependent Transfers, Impaired Cognition, Impaired I ADL's, Impaired Self-Care Skills Discharge Recommendations Plan/Recommendations: Continue POC Therapy Discharge Recommendati: 24 Hour Supervision, Post Acute OT Treatment Plan/Plan of Care Treatment,Training & Education: Yes Patient would benefit from OT for education, treatment and training to promote independence in ADL's, mobility, safety and/or upper extremity function for ADL's. Plan of Care: ADL Retraining, Functional Mobility, UE Funct Exercise/Act Treatment Duration: Nov 23, 2020 Frequency: 5 times per week Estimated Hrs Per Day: .25 hour per day Agreement: Yes Rehab Potential: Fair Time/GCodes Start Time: 09:33 Stop Time: 09:48 Total Time Billed (hr/min): 15 Billed Treatment Time 1, ADL (15) NANCY CHUN OTR Nov 11, 2020 09:58
--- NOTE | 2020-11-11 10:41 | Physical Therapy Daily Note ---
PT Daily Note-Current Subjective Patient is up in recliner, confused, agrees to PT. Mental Status Patient Orientation: Confused Transfers SCALE: Activities may be completed with or without assistive devices. 5-Hviyjjifin-yjamvds completes the activity by him/herself with no assistance from a helper. 5-Set-up or Clean-up Assistance-helper sets up or cleans up; patient completes activity. [place] assists only prior to or following the activity. 4-Supervision or Touching Assistance-helper provides verbal cues and/or touching/steadying and/or contact guard assistance as patient completes activity. Assistance may be provided throughout the activity or intermittently. 3-Partial/Moderate Assistance-helper does LESS THAN HALF the effort. [place] lifts, holds or supports trunk or limbs, but provides less than half the effort. 2-Substantial/Maximal Assistance-helper does MORE THAN HALF the effort. [place] lifts or holds trunk or limbs and provides more than half the effort. 1-Fctvrftvr-xzarnl does ALL the effort. Patient does none of the effort to complete the activity. Or, the assistance of 2 or more helpers is required for the patient to complete the activity. If activity was not attempted, code reason: 7-Patient Refused. 9-Not Applicable-not attempted and the patient did not perform the activity before the current illness, exacerbation or injury. 10-Not Attempted due to Environmental Limitations-(lack of equipment, weather restraints, etc.). 88-Not Attempted due to Medical Conditions or Safety Concerns. Sit to Stand (QC): 4 Gait Training Does the Patient Walk?: Yes Distance: 300' Walk 10 feet (QC): 4 Walk 50 ft with 2 Turns(QC): 4 Walk 150 ft (QC): 4 Gait Assistive Device: FWW trunk flexed posture and shuffle gait sequence with inability to follow direction to correct. Exercises Seated Therapy Exercises: Ankle pumps, Long arc quads Assessment Patient remains up in recliner with chair alarm activated. Patient improving slowly with gross motor skills. PT Short Term Goals Short Term Goals Time Frame: Nov 26, 2020 Roll Left & Right: 4 Sit to lyin Lying to sitting on side of be: 4 Sit to stand: 4 Chair/mkr-pj-ypaih transfer: 4 Toilet transfer: 4 Walk 10 feet: 4 Walk 50 feet with two turns: 4 Walk 150 feet: 4 PT Principal Planner Goals Intermediate Goals PT Intermediate Goals Time Frame: Dec 04, 2020 Roll Left & Right (QC): 5 Sit to Lying (QC): 5 Lying-Sitting on Side/Bed(QC): 5 Sit to Stand (QC): 5 Chair/Ykr-iq-Wovyi Xfer(QC): 5 Toilet Transfer (QC): 5 Car Transfer (QC): 5 Does the Patient Walk: Yes Walk 10 feet (QC): 4 Walk 50ft with 2 Turns (QC): 4 Walk 150 ft (QC): 4 1 Step (curb) (QC): 4 PT Plan Treatment/Plan Treatment Plan: Continue Plan of Care Treatment Plan: Bed Mobility, Education, Functional Activity Nerissa, Functional Strength, Gait, Safety, Therapeutic Exercise, Transfers Treatment Duration: Dec 04, 2020 Frequency: 6 times per week Estimated Hrs Per Day: .25 hour per day Time/GCodes Time In: 949 Time Out: 959 Total Billed Treatment Time: 10 Total Billed Treatment 1 visit FA 10 min EDMOND DRAKE PT Nov 11, 2020 10:41
--- NOTE | 2020-11-11 11:40 | Discharge Inst-Skilled Nursing ---
Discharge [facility]illed [facility] Chief Complaint Ms. Walker is a 75-year-old female with past medical history significant for IDDM2, HTN, HLD, hypothyroidism who presented to the ED with altered mental status. During questioning, she is unable to tell me what exactly brought her to the hospital and did not realize she was in a hospital during the interview. She knows that she fell and hit the back of her head "a few days ago". The remaining HPI is per ED documentation: Patient presents ER by EMS from home with chief complaint of altered mental status. Blood sugar reads high. No history of strokes not on blood thinners. Takes lisinopril and atorvastatin. She is accompanied by her son with MR who gives very little history. Patient is alert to her name and remember she had a fall but does not have any pain anywhere. Unknown last well time. Unknown time of fall. She denies loss of consciousness but she does recall striking her head. Patient Instructions Patient Problems: Please continue to take your medications as written. Please follow up with your primary care doctor to follow up this hospital stay. Consult/Follow Up/Orders Follow Up Appt.: With your PCP in 1 week or with the medical genetics director at the [facility] Admit to: [facility] Certification (SNF) I certify that SNF services are required to be given on an inpatient basis because of the above named patient's need for prison care on a continuing basis for the conditions(s) for which he/she was receiving inpatient hospital services prior to his/her transfer to the SNF. Snf Facility Order: Nursing Services, [employer]-Evaluate & Treat, Physical Therapy-Evaluate & Treat Oxygen Delivery Method: Room Air Discharge Diet: No Restrictions Daily Activity as Tolerated: Yes Resuscitation Status: Full Code New & Resume Previous Orders Weston Barbosa Nov 11, 2020 11:39 WESTON BARBOSA MD Nov 11, 2020 11:40
--- NOTE | 2020-11-11 11:44 | Physician Query Clarification ---
"Physician Query-General Query to Physician: The medical record reflects the following clinical scenario: History/Risk factors: Recent UTI, IDDM2 Clinical Findings: BS 527 -> 276 on admission, Admission GCS 10 improved to 14 after treatment, Urine culture Pos for yeast Treatment: Insulin IV, Neuro checks, NS 1L Question: What condition best reflects the above clinical scenario? Please document response in the Progress notes or Discharge Summary. 1. Dementia with Acute Altered Mentation possibly due to Metabolic Encephalopathy 2. Altered mentation likely due to dementia vs reversible cause/encephalopathy (as currently documented) 3. Other , with explanation of the clinical findings 4. Clinically undetermined, no explanation for the clinical findings Please remember a lack of response to the above will prompt a phone page by CDI/coding staff In responding to this query, please exercise your independent professional judgment. The purpose of this communication is to more accurately reflect the complexity of your patients condition. The fact that a question is asked does not imply that any particular answer is desired or expected. Thank you for timely response to this clarification. Gely Cline, MSN, RN RN Specialist-Clinical Doc Improvement CD -Health Info Mgmt Operations [address] [facility] t: [phone] | f: [phone] If you are unable to reach me at my extension, I may be working from home. Please contact me at [phone] PHYSICIAN RESPONSE: Based on the clinical findings in the record, please respond to the query above on this document as an addendum. Physician Response: Physician Response 1 If you have questions please contact: [employer] Equipment Operator: Ext: Thank you for your time and cooperation. Clinical Resource Room Special Education Teacher/[employer] Equipment Operator This is a permanent part of the medical record GELY CLINE Nov 11, 2020 11:44 WESTON PASTRANA MD Nov 12, 2020 06:46"
[2020-11-11 11:48] VITALS: BP 136/63
[2020-11-11 16:16] VITALS: BP 157/70
[2020-11-11 19:00] VITALS: BP 152/64
[2020-11-11] MEDS: ACETAMINOPHEN 500 MG TAB (TYLENOL) PO PRN (20:51)
[2020-11-12 04:42] VITALS: BP 168/77
[2020-11-12] MEDS: LEVOTHYROXINE 50 MCG (LEVOTHROID) TAB PO SCH (06:48)
[2020-11-12] MEDS: inSUlin ASPART (NovoLOG) 1 UNIT/0.01 ML (CHARGE PER UNIT) SC SCH ×4 (06:49→12:29)
[2020-11-12 08:00] VITALS: BP 205/86
[2020-11-12] MEDS: lisINopril 40 MG (PRINIVIL) TABLET PO SCH (08:29)
[2020-11-12] MEDS: risperiDONE 0.5 MG (RisperDAL) TABLET PO SCH (08:29)
[2020-11-12] MEDS: meTOprolol TARTRATE 50 MG (LOPRESSOR) TAB PO SCH (08:29)
[2020-11-12] MEDS: CARVEDILOL 12.5 MG (COREG) TABLET PO SCH (08:29)
--- NOTE | 2020-11-12 09:32 | Discharge Summary ---
PETER MALLORY, 11/12/20 0932: Diagnosis/Chief Complaint Date of Admission Nov 08, 2020 at 16:40 Date of Discharge Admission Diagnosis Patient admitted due to metabolic encephalopathy. Her mentation approves to be improved from yesterday so she still has soem deficits. WIll add an ammonia level and tsh to work up. She reports noncompliance with her medications at home and is unsure when she last took them. SW reached out to daughter who is in agreement with placement if needed and referrals were made. Replace potassium and check Mag level. Will resume her home meds. Primary Care No,Local Physician Discharge Diagnosis (1) Uncontrolled hypertension Status: Acute (2) Subdural hemorrhage Status: Resolved (3) Hyperglycemia due to diabetes mellitus Status: Acute (4) Traumatic brain injury Status: Acute (5) Encephalopathy Status: Acute Discharge Summary Discharge Physical Exam Allergies: Coded Allergies: Penicillins (Unverified Allergy, Unknown, RASH, SOB, 11/08/20) Sulfa (Sulfonamide Antibiotics) (Unverified Allergy, Unknown, SWELLING, 11/08/20) Vitals & I&Os Vital Signs Date Time Temp Pulse Resp B/P (MAP) Pulse Ox O2 Delivery O2 Flow Rate FiO2 11/12/20 08:00 36.2 67 20 205/86 (125) 97 Room Air General Appearance: No Apparent Distress, WD/WN HEENT: PERRL/EOMI Respiratory: Lungs Clear, Normal Breath Sounds Cardiovascular: Regular Rate, Rhythm, No Murmur Gastrointestinal: Normal Bowel Sounds, Non Tender, Soft Extremity: Normal Capillary Refill, No Calf Tenderness Skin: Normal Color, Warm/Dry Neurologic/Psychiatric: Alert, Disoriented (alert to self and time only) Hospital Course Admission Diagnosis: Encephalopathy IDDM2 Elevated d-dimer Hypokalemia HTN HLD Hypothyroidism Final Diagnosis: Dementia IDDM2 Elevated d-dimer Hypokalemia HTN HLD Hypothyroidism Hospital Course: Ms. Walker is a 75-year-old female with past medical history significant for IDDM2, HTN, HLD, hypothyroidism who presented to the ED with altered mental status. During questioning, she is unable to tell me what exactly brought her to the hospital and did not realize she was in a hospital during the interview. She knows that she fell and hit the back of her head "a few days ago". The remaining HPI is per ED documentation: Patient presents ER by EMS from home with chief complaint of altered mental status. Blood sugar reads high. No history of strokes not on blood thinners. Takes lisinopril and atorvastatin. She is accompanied by her son with MR who gives very little history. Patient is alert to her name and remember she had a fall but does not have any pain anywhere. Unknown last well time. Unknown time of fall. She denies loss of consciousness but she does recall striking her head. MRI brain revealed right basal ganglia elevated high T1 signal and slightly low T2 signal which is likely due to nonketotic hyperglycemia or movement disorder. However, after regulation of blood sugar, the patient's mentation did not return. Throughout her entire hospitalization, she has only been alert and oriented to person and time. TSH was within normal limits and not a cause of the altered mental status. Patient was having agitation at nighttime but resolved with oral risperdol. While here, it was discussed with the patient's daughter about patient's baseline with noted decline in both mental and physical status since July. patient services representative was consulted for skilled rehab placement vs intermediate. Outpatient Needs: Discharge to [facility] for fdc placement Labs (last 24 hrs) Laboratory Tests 11/11/20 11:11: Glucometer 277H 11/11/20 15:50: Glucometer 247H 11/11/20 20:04: Glucometer 257H 11/12/20 05:57: Glucometer 150H Microbiology 11/08/20 Urine Culture - Final, Complete YEAST Patient resulted labs reviewed. Pending Labs Laboratory Tests 11/12/20 05:57: Glucometer 150 Discharge Home Medications: Active Scripts Active Reported Diltiazem ER (Diltiazem HCl) 240 Mg Capsule.er 240 Mg PO DAILY Carvedilol 25 Mg Tablet 25 Mg PO BID Levothyroxine Sodium 50 Mcg Tablet 50 Mcg PO DAILY Metoprolol Tartrate 50 Mg Tablet 50 Mg PO BID Metformin HCl ER (Metformin HCl) 750 Mg Tab.er.24h 750 Mg PO BID Atorvastatin Calcium 40 Mg Tablet 40 Mg PO DAILY Lisinopril 40 Mg Tablet 40 Mg PO DAILY Glipizide ER (Glipizide) 2.5 Mg Tab 2.5 Mg PO DAILY Instructions to patient/family Please see electronic discharge instructions given to patient. Clinical Quality Measures Stroke: Date of last known well: Nov 08, 2020 Symptoms onset unknown: Yes WESTON PASTRANA MD 11/12/20 1926: Discharge Summary Discharge Physical Exam Allergies: Coded Allergies: Penicillins (Unverified Allergy, Unknown, RASH, SOB, 11/08/20) Sulfa (Sulfonamide Antibiotics) (Unverified Allergy, Unknown, SWELLING, 11/08/20) Discussion & Recommendations Discharge Planning: >30 minutes discharge planning Supervisory-Addendum Brief Verification & Attestation Participated in pt care: history, MDM, physical Personally performed: exam, history, MDM, supervision of care Care discussed with: Medical Student Procedures: n/a Results interpretation: Verified all documentation Verification and Attestation of Medical Student E/M Service A medical student performed and documented this service in my presence. I rev iewed and verified all information documented by the medical student and made modifications to such information, when appropriate. I personally performed the physical exam and medical decision making. Weston Pastrana, Nov 12, 2020,19:26 Problem Qualifiers (1) Traumatic brain injury: Encounter type: subsequent encounter Loss of consciousness presence/duration: with LOC of unspecified duration Qualified Codes: S06.9X9D - Unspecified intracranial injury with loss of consciousness of unspecified duration, subsequent encounter PETER MALLORY, Nov 12, 2020 09:32 WESTON PASTRANA MD Nov 12, 2020 19:26
[2020-11-12] MEDS ORDERED: INSU100V5 SQ (10:06)
[2020-11-12] MEDS ORDERED: INSU100V16 SC (10:06)
[2020-11-12] MEDS ORDERED: RISP0.5T65 PO (10:06)
[2020-11-12 12:00] VITALS: BP 168/77
== END 2020-11-12 14:10 ==
LOC: EDUNIT# 12:52 → ER 12:54 → INTOOBSV 16:40 → 4TH 16:40
PROVIDERS: ADMIT Family Medicine; ATTEND Family Medicine
DX: G93.41 Metabolic encephalopathy (principal); S06.9X9D Unspecified intracranial injury with loss of consciousness of unspecified duration, subsequent encounter; E11.65 Type 2 diabetes mellitus with hyperglycemia; E78.00 Pure hypercholesterolemia, unspecified; E78.5 Hyperlipidemia, unspecified; E87.6 Hypokalemia; E03.9 Hypothyroidism, unspecified; I10 Essential (primary) hypertension; I25.2 Old myocardial infarction; F03.90 Unspecified dementia, unspecified severity, without behavioral disturbance, psychotic disturbance, mood disturbance, and anxiety; R79.89 Other specified abnormal findings of blood chemistry; Z88.0 Allergy status to penicillin; Z88.2 Allergy status to sulfonamides; N39.0 Urinary tract infection, site not specified; Z79.891 Long term (current) use of opiate analgesic; Z90.89 Acquired absence of other organs; Z78.0 Asymptomatic menopausal state; Z20.822 Contact with and (suspected) exposure to COVID-19; Z79.890 Hormone replacement therapy; Z91.14 Patient's other noncompliance with medication regimen
CPT/HCPCS: 70450; 70496; 70498; 70551; 71045; 80048 ×2; 80053 ×2; 80061; 81000; 82140; 82962 ×5; 83036; 83735 ×3; 84443; 84484; 85025 ×2; 85027 ×2; 85379; 85610; 85730; 87088; 93005; 93041; 97116; 97162; 97167; 97530; 97535 ×2; 99284; U0002; 36415; 87635; 96361; 96374; 96375

== ENCOUNTER 2021-12-29 05:49 | Outpatient (CLI) | payer MEDICARE, OTHER ==
[~2021-12-29] VITALS: Ht 172.7 cm; Wt 63.6 kg
[~2021-12-29 05:49] MED LIST changes: +ATOR40TA70 PO; +CARV25TA PO; +DILT240C87 PO; +INSU100V16 SC; +INSU100V5 SQ; +LEVO50TA6 PO; +LISI40TA9 PO; +METF750T45 PO; +METO50TA15 PO; +NF-GLIP2.5 PO; +RISP0.5T65 PO
== END 2022-01-03 16:05 | disposition home or self-care (01) ==
LOC: PREOP 05:49
PROVIDERS: ATTEND Specialist
DX: Z01.818 Encounter for other preprocedural examination (principal)

== ENCOUNTER 2022-01-06 06:37 | Day surgery (SDC) | payer MEDICARE, OTHER ==
[~2022-01-06] VITALS: Ht 172.7 cm; Wt 63.5 kg
[2022-01-06] MEDS ORDERED: TIMOLOL MALEATE 0.5% 5 ML (TIMOPTIC) BTL OU PRN (06:45)
[2022-01-06] MEDS ORDERED: LIDOCAINE PF 1% 2 ML VIAL IR PRN (06:45)
[2022-01-06] MEDS ORDERED: MOXIFLOXACIN OPHTH SOLN 5 MG/ML 0.3 ML SYRINGE OP ONE (06:45)
[2022-01-06] MEDS ORDERED: POVIDONE (BETADINE) OPHTH SOLN 5% 30 ML OP ONE (06:45)
[2022-01-06 06:54] VITALS: BP 201/114
[2022-01-06] MEDS: TETRACAINE 0.5% OPHTH SOLN 4 ML BTL (SINGLE DOSE ONLY) OU PRN ×4 (06:57→07:23)
[2022-01-06] MEDS: TROPICAMIDE 1% OPH SOLN (MYDRIACYL) 15 ML BTL OP SCH ×3 (07:09→07:24)
[2022-01-06] MEDS: PHENYLEPHRINE 10% OPHTH (NEO-SYN) 5 ML BTL OU SCH ×3 (07:09→07:24)
[2022-01-06] MEDS ORDERED: meTOprolol 5 MG/5 ML (LOPRESSOR) VIAL ONE (07:12)
[2022-01-06] MEDS ORDERED: meTOprolol 5 MG/5 ML (LOPRESSOR) VIAL IV ONE (07:15)
[2022-01-06] MEDS ORDERED: MIDAZOLAM 2 MG/2 ML (VERSED) VIAL ONE (07:26)
--- NOTE | 2022-01-06 08:00 | Ophthalmologist Pre-Op Note ---
Pre-Operative Progress Note H&P Reviewed The H&P was reviewed, patient examined and no changes noted. Date H&P Reviewed: Jan 06, 2022 Time H&P Reviewed: 08:00 Pre-Op Dx Cataract, Right Eye FREDIS FREGOSO MD Jan 06, 2022 08:00
--- NOTE | 2022-01-06 08:20 | Ophthalmology Operative Report ---
Cataract removal/placement IOL PREOPERATIVE DIAGNOSIS: Cataract Right Eye POSTOPERATIVE DIAGNOSIS: Cataract Right Eye PROCEDURE: Cataract removal and placement of posterior chamber implant, right eye SURGEON: Michael Fregoso ANESTHESIA: Topical with sedation COMPLICATIONS: None ESTIMATED BLOOD LOSS: Minimal DESCRIPTION OF PROCEDURE: After proper informed consent was obtained, the patient, a 76 female, was taken to the Operating Room and the right eye was anesthetized with tetracaine. The right eye was then prepped and draped in the usual manner. A wire lid speculum was placed. A paracentesis was made at the left hand position. Preservative free lidocaine was injected into the anterior chamber followed by viscoelastic. A clear corneal incision was made in the temporal position. A capsulorrhexis was preformed and the central nuclear and cortical material were removed. The posterior capsule was polished and Silvano 23.5 AU00T0 IOL was placed into the capsular bag. The residual viscoelastic was aspirated and balanced saline solution was injected into the anterior chamber. Moxifloxacin was injected into the anterior chamber. The wound was checked and found to be water tight. The patient tolerated the procedure well without complications. MICHAEL FREGOSO MD Jan 06, 2022 08:20
[2022-01-06] MEDS ORDERED: acetaZOLAMIDE ER 500 MG CAP (DIAMOX SEQUELS) PO ONE (09:30)
--- NOTE | 2022-01-06 13:16 | Anesthesia-General Post-Op ---
MAC Patient Condition Mental Status/LOC: Same as Preop Cardiovascular: Satisfactory Nausea/Vomiting: Absent Respiratory: Satisfactory Pain: Controlled Complications: Absent Post Op Complications Complications None Follow Up Care/Instructions Patient Instructions None needed. Anesthesiology Discharge Order Discharge Order Patient is doing well, no complaints, stable vital signs, no apparent adverse anesthesia problems. No complications reported per nursing. DAHLIA JONES CRNA Jan 06, 2022 13:16
== END 2022-01-06 08:30 | disposition home or self-care (01) ==
LOC: SDC 06:37
PROVIDERS: ATTEND Specialist
DX: E11.36 Type 2 diabetes mellitus with diabetic cataract (principal); H25.9 Unspecified age-related cataract; Z79.84 Long term (current) use of oral hypoglycemic drugs
CPT/HCPCS: 66984; 82947; V2632

== ENCOUNTER 2022-01-20 06:34 | Day surgery (SDC) | payer MEDICARE ==
[~2022-01-20] VITALS: Ht 172.7 cm; Wt 63.5 kg
--- NOTE | 2022-01-20 06:40 | Ophthalmologist Pre-Op Note ---
Pre-Operative Progress Note H&P Reviewed The H&P was reviewed, patient examined and no changes noted. Date H&P Reviewed: January 20, 2022 Time H&P Reviewed: 06:40 Pre-Op Dx Cataract, Left Eye FREDIS FREGOSO MD January 20, 2022 06:40
[2022-01-20] MEDS ORDERED: TIMOLOL MALEATE 0.5% 5 ML (TIMOPTIC) BTL OU PRN (06:45)
[2022-01-20] MEDS ORDERED: MOXIFLOXACIN OPHTH SOLN 5 MG/ML 0.3 ML SYRINGE OP ONE (06:45)
[2022-01-20] MEDS ORDERED: POVIDONE (BETADINE) OPHTH SOLN 5% 30 ML OP ONE (06:45)
[2022-01-20] MEDS ORDERED: LIDOCAINE PF 1% 2 ML VIAL IR PRN (06:45)
[2022-01-20] MEDS: TETRACAINE 0.5% OPHTH SOLN 4 ML BTL (SINGLE DOSE ONLY) OU PRN ×4 (06:46→07:10)
[2022-01-20 06:55] VITALS: BP 192/88
[2022-01-20] MEDS: PHENYLEPHRINE 10% OPHTH (NEO-SYN) 5 ML BTL OU SCH ×3 (07:00→07:10)
[2022-01-20] MEDS: TROPICAMIDE 1% OPH SOLN (MYDRIACYL) 15 ML BTL OP SCH ×3 (07:00→07:10)
[2022-01-20] MEDS ORDERED: MIDAZOLAM 2 MG/2 ML (VERSED) VIAL ONE (07:34)
--- NOTE | 2022-01-20 08:05 | Ophthalmology Operative Report ---
Cataract removal/placement IOL PREOPERATIVE DIAGNOSIS: Cataract Left Eye POSTOPERATIVE DIAGNOSIS: Cataract Left Eye PROCEDURE: Cataract removal and placement of posterior chamber implant, left eye SURGEON: Michael Fregoso ANESTHESIA: Topical with sedation COMPLICATIONS: None ESTIMATED BLOOD LOSS: Minimal DESCRIPTION OF PROCEDURE: After proper informed consent was obtained, the patient, a 76 female, was taken to the Operating Room and the left eye was anesthetized with tetracaine. The left eye was then prepped and draped in the usual manner. A wire lid speculum was placed. A paracentesis was made at the left hand position. Preservative free lidocaine was injected into the anterior chamber followed by viscoelastic. A clear corneal incision was made in the temporal position. A capsulorrhexis was preformed and the central nuclear and cortical material were removed. The posterior capsule was polished and an Silvano 24.0 AU00T0 was placed into the capsular bag. The residual viscoelastic was aspirated and balanced saline solution was injected into the anterior chamber. Moxifloxacin was injected into the anterior chamber. The wound was checked and found to be water tight. The patient tolerated the procedure well without complications. MICHAEL FREGOSO MD January 20, 2022 08:05
[2022-01-20 08:20] VITALS: BP 178/87
--- NOTE | 2022-01-20 14:27 | Anesthesia-General Post-Op ---
MAC Patient Condition Mental Status/LOC: Same as Preop Cardiovascular: Satisfactory Nausea/Vomiting: Absent Respiratory: Satisfactory Pain: Controlled Complications: Absent Post Op Complications Complications None Follow Up Care/Instructions Patient Instructions None needed. Anesthesiology Discharge Order Discharge Order Patient is doing well, no complaints, stable vital signs, no apparent adverse anesthesia problems. No complications reported per nursing. AIRAM DUKE CRNA January 20, 2022 14:27
== END 2022-01-20 08:20 | disposition home or self-care (01) ==
LOC: SDC 06:34
PROVIDERS: ATTEND Specialist
DX: H25.9 Unspecified age-related cataract (principal); E11.36 Type 2 diabetes mellitus with diabetic cataract; Z79.84 Long term (current) use of oral hypoglycemic drugs
CPT/HCPCS: 66984; 82947; V2632

== ENCOUNTER 2022-02-18 09:55 | Emergency (ER) | payer MEDICARE ==
[~2022-02-18] VITALS: Ht 172 cm; Wt 61.0 kg
[2022-02-18] MEDS ORDERED: inSUlin (REGULAR) HUMAN 1 UNIT/0.01 ML (CHARGE PER UNIT) IV STA (10:15)
--- NOTE | 2022-02-18 10:19 | ED General ---
General Chief Complaint: General Problems/Pain Stated Complaint: DIZZINESS/WEAKNESS Nursing Triage Note: PT TO [facility] BY [facility] WITH CC WEAKNESS AND FAMILY STATES PT FELL 3 X'S THIS MORNING. PT DENIES ANY PAIN. EMS STATED PT'S BLOOD SUGAR SHOWED HIGH ON READING, FLUIDS RUNNING IN RT AC ON ARRIVAL. PT HAD DIARRHEA IN PANTS AND IS BEING CLEANED AT TRIAGE. Source of Information: Patient, EMS Exam Limitations: No Limitations History of Present Illness Date Seen by Provider: Feb 18, 2022 Time Seen by Provider: 10:19 Initial Comments Patient is a 76-year-old female who arrives by EMS from her daughter's house chief complaint of generalized weakness and 3 falls this morning. Evidently she has had some increased confusion, the patient's daughter states that her walked into their laundry room and found her in there telling them that she was going to the bathroom. She had fallen apparently. Patient then was walking with her daughter to the bathroom and fell again. Then she had a third fall all of these were related to having generalized weakness. She is staying with her daughter as her disabled son is at [employer] this weekend. Daughter states that she seems right now to be her normal mentation. She did however sleep a lot yesterday and did not really feel well. She denies any complaints currently but states that she felt dizzy earlier. EMS reported "high" blood sugar. No nausea or vomiting. No diarrhea. Apparently the patient gets frequent urinary tract infections. EMS reported multiple areas of animal feces in the house and the patient herself was also covered in stool. No cough or shortness of breath. No earache sore throat or runny nose. No rashes. The patient states that she did get abrasions on her elbows as a result of her falls. Patient does state that she was eating a rice crispy treat prior to the onset of her dizziness and falls She is currently awake, alert to self, year, location/situation. She recognized her daughter and was able to converse with her. Again she currently has no complaints. All other review of systems reviewed and negative except as stated. Timing/Duration: 1-3 Hours Severity: Moderate Associated Systoms: Malaise, Other (falls x3) Allergies and Home Medications Allergies Coded Allergies: Penicillins (Unverified Allergy, Unknown, RASH, SOB, 01/03/22) Sulfa (Sulfonamide Antibiotics) (Unverified Allergy, Unknown, SWELLING, 01/03/22) Patient Home Medication List Home Medication List Reviewed: Yes Atorvastatin Calcium (Atorvastatin Calcium) 40 Mg Tablet, 40 MG PO DAILY, (Reported) Entered as Reported by: IVETTE NORRIS on 11/09/20 1024 Carvedilol (Carvedilol) 25 Mg Tablet, 25 MG PO BID, (Reported) Entered as Reported by: IVETTE NORRIS on 11/09/20 1024 Diltiazem HCl (Diltiazem ER) 240 Mg Capsule.er, 240 MG PO DAILY, (Reported) Entered as Reported by: IVETTE NORRIS on 11/09/20 1024 Glipizide (Glipizide ER) 2.5 Mg Tab, 2.5 MG PO DAILY, (Reported) Entered as Reported by: IVETTE NORRIS on 11/09/20 1024 Insulin Aspart (Novolog) 100 Unit/1 Ml Susp, 0 UNIT SC ACHS Prescribed by: WESTON PASTRANA on 11/12/20 1006 Insulin Determir (Levemir) 1,000 Units/10 Ml Soln, 15 UNIT SQ HS Prescribed by: WESTON PASTRANA on 11/12/20 1006 Levothyroxine Sodium (Levothyroxine Sodium) 50 Mcg Tablet, 50 MCG PO DAILY, (Reported) Entered as Reported by: IVETTE NORRIS on 11/09/20 1024 Lisinopril (Lisinopril) 40 Mg Tablet, 40 MG PO DAILY, (Reported) Entered as Reported by: IVETTE NORRIS on 11/09/20 1024 Metformin HCl (Metformin HCl ER) 750 Mg Tab.er.24h, 750 MG PO BID, (Reported) Entered as Reported by: IVETTE NORRIS on 11/09/20 1024 Risperidone (Risperidone) 0.5 Mg Tablet, 0.5 MG PO BID Prescribed by: WESTON PASTRANA on 11/12/20 1006 Review of Systems Review of Systems Constitutional: see HPI EENTM: no symptoms reported Respiratory: no symptoms reported Cardiovascular: no symptoms reported Gastrointestinal: no symptoms reported Genitourinary: no symptoms reported : No Musculoskeletal: joint pain (elbow abrasions) Psychiatric/Neurological: Other ("dizziness") All Other Systems Reviewed Negative Unless Noted: Yes Past Xodpksi-Acbahk-Gmuubl Hx Past Medical History Surgeries: Yes (RIGHT PAROTIDECTOMY 2010) Tonsillectomy Respiratory: No Cardiac: Yes High Cholesterol, Hypertension Neurological: No [employer] History: Menopausal Sexually Transmitted Disease: No Gastrointestinal: No Musculoskeletal: No Endocrine: Yes Diabetes, Insulin dep, Hypothyroidsim HEENT: Yes (RIGHT PAROTIDECTOMY 2010) Psychosocial: No Blood Disorders: No Family Medical History Heart Disease Physical Exam Vital Signs Vital Signs - First Documented 02/18/22 10:09 Temp 35.8 Pulse 70 Resp 18 B/P (MAP) 117/60 (79) Pulse Ox 99 O2 Delivery Room Air Capillary Refill : Less Than 3 Seconds Height, Weight, BMI Height: '" Weight: lbs. oz. kg; 20.00 BMI Method: General Appearance: No Apparent Distress, WD/WN Eyes: Bilateral Eye Normal Inspection, Bilateral Eye PERRL, Bilateral Eye EOMI HEENT: PERRL/EOMI, Pharynx Normal, Other (dry mucous membranes) Neck: Normal Inspection, Supple Respiratory: Lungs Clear, Normal Breath Sounds, No Accessory Muscle Use, No Respiratory Distress Cardiovascular: Regular Rate, Rhythm Gastrointestinal: Normal Bowel Sounds, Non Tender, Soft Back: Normal Inspection Extremity: Normal Inspection, Normal Range of Motion, Non Tender, No Calf Tenderness Neurologic/Psychiatric: Alert, Oriented x3, No Motor/Sensory Deficits, Normal Mood/Affect, preliminary school psychologist II-XII Norm as Tested Skin: Normal Color, Warm/Dry, Other (small abrasion left elbow) Focused Exam Lactate Level 02/18/22 10:30: Lactic Acid Level 3.34*H 02/18/22 13:00: Lactic Acid Level 2.63*H Lactic Acid Level Laboratory Tests Test 02/18/22 10:30 02/18/22 13:00 Lactic Acid Level 3.34 MMOL/L (0.50-2.00) *H 2.63 MMOL/L (0.50-2.00) *H Progress/Results/Core Measures Suspected Sepsis SIRS Temperature: Pulse: 70 Respiratory Rate: 18 Laboratory Tests 02/18/22 10:03: White Blood Count 9.5 Blood Pressure 117 /60 Mean: 79 02/18/22 10:30: Lactic Acid Level 3.34*H 02/18/22 13:00: Lactic Acid Level 2.63*H Laboratory Tests 02/18/22 10:03: Creatinine 1.26, INR Comment 1.1, Platelet Count 215, Total Bilirubin 1.3H Results/Orders Lab Results Laboratory Tests Test 02/18/22 10:03 02/18/22 10:25 02/18/22 10:30 02/18/22 10:50 Range/Units White Blood Count 9.5 4.3-11.0 10^3/uL Red Blood Count 3.87 3.80-5.11 10^6/uL Hemoglobin 11.8 11.5-16.0 g/dL Hematocrit 34 L 35-52 % Mean Corpuscular Volume 87 80-99 fL Mean Corpuscular Hemoglobin 31 25-34 pg Mean Corpuscular Hemoglobin Concent 35 32-36 g/dL Red Cell Distribution Width 12.4 10.0-14.5 % Platelet Count 215 130-400 10^3/uL Mean Platelet Volume 9.4 9.0-12.2 fL Immature Granulocyte % (Auto) 0 % Neutrophils (%) (Auto) 72 42-75 % Lymphocytes (%) (Auto) 19 12-44 % Monocytes (%) (Auto) 7 0-12 % Eosinophils (%) (Auto) 2 0-10 % Basophils (%) (Auto) 0 0-10 % Neutrophils # (Auto) 6.8 1.8-7.8 10^3/uL Lymphocytes # (Auto) 1.8 1.0-4.0 10^3/uL Monocytes # (Auto) 0.7 0.0-1.0 10^3/uL Eosinophils # (Auto) 0.2 0.0-0.3 10^3/uL Basophils # (Auto) 0.0 0.0-0.1 10^3/uL Immature Granulocyte # (Auto) 0.0 0.0-0.1 10^3/uL Prothrombin Time 14.7 12.2-14.7 SEC INR Comment 1.1 0.8-1.4 Activated Partial Thromboplast Time 30 24-35 SEC Sodium Level 135 135-145 MMOL/L Potassium Level 4.7 3.6-5.0 MMOL/L Chloride Level 100 98-107 MMOL/L Carbon Dioxide Level 21 21-32 MMOL/L Anion Gap 14 5-14 MMOL/L Blood Urea Nitrogen 21 H 7-18 MG/DL Creatinine 1.26 0.60-1.30 MG/DL Estimat Glomerular Filtration Rate 44 BUN/Creatinine Ratio 17 Glucose Level 495 *H 70-105 MG/DL Calcium Level 8.6 8.5-10.1 MG/DL Corrected Calcium 9.0 8.5-10.1 MG/DL Total Bilirubin 1.3 H 0.1-1.0 MG/DL Aspartate Amino Transf (AST/SGOT) 13 5-34 U/L Alanine Aminotransferase (ALT/SGPT) 12 0-55 U/L Alkaline Phosphatase 85 40-136 U/L Total Protein 6.3 L 6.4-8.2 GM/DL Albumin 3.5 3.2-4.5 GM/DL Beta-Hydroxybutyrate (Chem panel) 0.13 0.00-0.27 MMOL/L Thyroid Stimulating Hormone (TSH) 2.95 0.35-4.94 UIU/ML Urine Color YELLOW Urine Clarity SL CLOUDY Urine pH 6.5 5-9 Urine Specific [place] 1.020 1.016-1.022 Urine Protein 2+ H NEGATIVE Urine Glucose (UA) 2+ H NEGATIVE Urine Ketones NEGATIVE NEGATIVE Urine Nitrite NEGATIVE NEGATIVE Urine Bilirubin NEGATIVE NEGATIVE Urine Urobilinogen 0.2 < = 1.0 MG/DL Urine Leukocyte Esterase NEGATIVE NEGATIVE Urine RBC (Auto) NEGATIVE NEGATIVE Urine RBC RARE /HPF Urine WBC 0-2 /HPF Urine Renal Epithelial Cells 2-5 /HPF Urine Crystals NONE /LPF Urine Bacteria FEW H /HPF Urine Casts PRESENT /LPF Urine Hyaline Casts 0-2 H /LPF Urine Mucus NEGATIVE /LPF Urine Culture Indicated CULTURE PENDING Lactic Acid Level 3.34 *H 0.50-2.00 MMOL/L Blood Gas Puncture Site RT RAD Blood Gas Patient Temperature 35.8 Arterial Blood pH 7.39 7.37-7.43 Arterial Blood Partial Pressure CO2 32 L 35-45 MMHG Arterial Blood Partial Pressure O2 79 79-93 MMHG Arterial Blood HCO3 20 L 23-27 MMOL/L Arterial Blood Total CO2 20.5 L 21.0-31.0 MMOL/L Arterial Blood Oxygen Saturation 97 94-100 % Arterial Blood Base Excess -4.8 L -2.5-2.5 MMOL/L Michael Test NA Blood Gas Ventilator Setting NO Blood Gas Inspired Oxygen NA Test 02/18/22 12:07 02/18/22 13:00 02/18/22 13:34 Range/Units Glucometer 238 H 232 H 70-110 MG/DL Lactic Acid Level 2.63 *H 0.50-2.00 MMOL/L My Orders Orders - KAR ROSS MD Cbc With Automated Diff (02/18/22 10:15) Comprehensive Metabolic Panel (02/18/22 10:15) Blood Culture (02/18/22 10:15) Urinalysis (02/18/22 10:15) Urine Culture (02/18/22 10:15) Protime With Inr (02/18/22 10:15) Partial Thromboplastin Time (02/18/22 10:15) Chest 1 View, Ap/Pa Only (02/18/22 10:15) Ed Iv/Invasive Line Start (02/18/22 10:15) Ed Iv/Invasive Line Start (02/18/22 10:15) Vital Signs Adult Sepsis Patie Q15M (02/18/22 10:15) O2 (02/18/22 10:15) Remove Rings In Anticipation O (02/18/22 10:15) Lactic Acid Analyzer (02/18/22 10:15) Arterial Blood Gas (02/18/22 10:15) Beta Hydroxybutyrate (02/18/22 10:15) Ns Iv 1000 Ml (Sodium Chloride 0.9%) (02/18/22 10:15) Insulin (Regular) Human (Novolin R (Per (02/18/22 10:15) Thyroid Stimulating Hormone (02/18/22 10:21) Vital Signs/I&O 02/18/22 02/18/22 10:09 13:50 Temp 35.8 35.8 Pulse 70 73 Resp 18 18 B/P (MAP) 117/60 (79) 131/64 Pulse Ox 99 99 O2 Delivery Room Air Room Air 02/19/22 00:00 Intake Total 1000 ml Balance 1000 ml Capillary Refill : Less Than 3 Seconds Blood Pressure Mean: 79 Progress Note : Time: 13:27 Progress Note Patient reassessed after 3 L of IV fluids. She is awake and eager to go home. She is alert without any complaints. Her vital signs have been stable. I have reviewed all of her laboratory studies, her initial blood glucose of greater than 450 has come down nicely in the 230 range. Her elevated lactic is trending down. I discussed the case and lactic acidosis with Dr. Pastrana. She believes that this may be attributable to her metformin dosing. I will send her home with strict instructions to drink plenty of water and avoid carbohydrates/simple sugars. Monitor for fever, nausea, shortness of breath or cough etc. Patient is happy with this plan of care. She remains alert and oriented. All questions are sought and answered. Diagnostic Imaging Diagonstic Imaging: Xray Plain Films/CT/US/NM/MRI: chest Comments [facility], [place] NAME: LAURA ESPITIA [facility] REC#: [id number] PT STATUS: REG ER : 1945 PHYSICIAN: KAR ROSS MD ADMIT DATE: 02/18/22/ER Draft Date of Exam:02/18/22 CHEST 1 VIEW, AP/PA ONLY EXAMINATION: Chest 1 view HISTORY: DKA, fall COMPARISON: None available. FINDINGS: The lungs are clear without edema or pneumonia. No pleural effusion or pneumothorax. Heart size is normal. IMPRESSION: 1. Clear lungs. Dictated on workstation # [id number] Dict: 02/18/22 1042 Trans: 02/18/22 1044 CV [id number] Interpreted by: BEAU DUMONT MD Electronically signed by: Departure Impression Primary Impression: Falls Qualified Codes: W19.XXXA - Unspecified fall, initial encounter Additional Impressions: Hyperglycemia due to diabetes mellitus Lactic acidosis due to diabetes mellitus Disposition: 01 HOME, SELF-CARE Condition: Improved Departure-Patient Inst. Decision time for Depature: 13:28 Referrals: HUONG PETERS MD (PCP/Family) Primary Care Physician Patient Instructions: High Blood Sugar, Adult ED, Preventing Falls ED Add. Discharge Instructions: Drink plenty of water to stay well-hydrated. Please avoid simple sugars, excessive carbohydrates, lots of rice crispy treats. You can take [id number] Tylenol as needed for aches and pains. Please monitor your symptoms for fever, chills, cough, abdominal pain nausea or any other infectious symptoms. Return to the emergency department for any worsening, otherwise please follow-up with your primary care physician. Resume all of your normal home medications. KAR ROSS MD Feb 18, 2022 10:19
[2022-02-18 10:24] LABS: BASOPHILS % (AUTO) 0 % (0-10); EOSINOPHILS # (AUTO) 0.2 10^3/uL (0.0-0.3); EOSINOPHILS % (AUTO) 2 % (0-10); HEMATOCRIT 34 % (35-52); HEMOGLOBIN 11.8 g/dL (11.5-16.0); LYMPHOCYTES # (AUTO) 1.8 10^3/uL (1.0-4.0); LYMPHOCYTES % (AUTO) 19 % (12-44); MEAN CORPUSCULAR HEMOGLOBIN 31 pg (25-34); MEAN CORPUSCULAR HGB CONC 35 g/dL (32-36); MEAN CORPUSCULAR VOLUME 87 fL (80-99); MEAN PLATELET VOLUME 9.4 fL (9.0-12.2); MONOCYTES # (AUTO) 0.7 10^3/uL (0.0-1.0); MONOCYTES % (AUTO) 7 % (0-12); NEUTROPHILS # (AUTO) 6.8 10^3/uL (1.8-7.8); NEUTROPHILS % (AUTO) 72 % (42-75); PLATELET COUNT 215 10^3/uL (130-400); WHITE BLOOD COUNT 9.5 10^3/uL (4.3-11.0)
[2022-02-18 10:30] LABS: INR 1.1 (0.8-1.4); PROTHROMBIN TIME PATIENT 14.7 SEC (12.2-14.7)
[2022-02-18 10:34] LABS: ALBUMIN 3.5 GM/DL (3.2-4.5); POTASSIUM 4.7 MMOL/L (3.6-5.0)
[2022-02-18 10:35] LABS: CALCIUM 8.6 MG/DL (8.5-10.1)
[2022-02-18 10:37] LABS: TOTAL PROTEIN 6.3 GM/DL (6.4-8.2)
[2022-02-18 10:38] LABS: BILIRUBIN,TOTAL 1.3 MG/DL (0.1-1.0)
[2022-02-18 10:40] LABS: BILIRUBIN,URINE NEGATIVE (NEGATIVE); CLARITY,URINE SL CLOUDY; COLOR,URINE YELLOW; GLUCOSE, URINE (UA) 2+ (NEGATIVE); KETONES,URINE NEGATIVE (NEGATIVE); LEUKOCYTE ESTERASE ,URINE NEGATIVE (NEGATIVE); NITRITE,URINE NEGATIVE (NEGATIVE); PH,URINE 6.5 (5-9); PROTEIN,URINE 2+ (NEGATIVE)
[2022-02-18 10:40] LABS: CREATININE SERUM 1.26 MG/DL (0.60-1.30)
--- NOTE | 2022-02-18 10:44 | Diagnostic Imaging Report ---
EXAMINATION: Chest 1 view HISTORY: DKA, fall COMPARISON: None available. FINDINGS: The lungs are clear without edema or pneumonia. No pleural effusion or pneumothorax. Heart size is normal. IMPRESSION: 1. Clear lungs. Dictated by: Dictated on workstation # [id number]
[2022-02-18 10:49] LABS: BACTERIA,URINE FEW /HPF; HYALINE CASTS, URINE 0-2 /LPF; RBC,URINE RARE /HPF; WBC,URINE 0-2 /HPF
[2022-02-18 10:56] LABS: ABG BASE EXCESS -4.8 MMOL/L (-2.5-2.5); ABG OXYGEN SATURATION 97 % (94-100); ABG PCO2 32 MMHG (35-45); ABG PH 7.39 (7.37-7.43); ABG PO2 79 MMHG (79-93); ABG TCO2 20.5 MMOL/L (21.0-31.0)
[2022-02-18 10:57] LABS: PATIENT TEMP 35.8; VENTILATOR NO
[2022-02-18] MEDS: NS IV 1000 ML 1,000 ML IV SCH ×2 (11:04→11:59)
[2022-02-18 13:50] VITALS: BP 131/64
== END 2022-02-18 13:50 | disposition home or self-care (01) ==
LOC: EDUNIT# 09:55 → ER 10:01
DX: E11.65 Type 2 diabetes mellitus with hyperglycemia (principal); E11.10 Type 2 diabetes mellitus with ketoacidosis without coma; R29.6 Repeated falls; Z79.4 Long term (current) use of insulin
CPT/HCPCS: 36415; 51702; 71045; 80053; 81000; 82010; 82805; 82947; 83605; 84443; 85025; 85610; 85730; 87040; 87077; 87088

== ENCOUNTER 2022-05-18 18:28 | Inpatient (IN) | payer MEDICARE ==
[~2022-05-18] VITALS: Ht 172.7 cm; Wt 63.5 kg
[~2022-05-18 18:28] MED LIST changes: +CEFD300C3 PO
[2022-05-18] MEDS ORDERED: LIDOCAINE UROJET 2% GEL 10 ML PKG TOP ONE (18:45)
[2022-05-18 18:53] LABS: BASOPHILS % (AUTO) 0 % (0-10); EOSINOPHILS # (AUTO) 0.1 10^3/uL (0.0-0.3); EOSINOPHILS % (AUTO) 1 % (0-10); HEMATOCRIT 32 % (35-52); HEMOGLOBIN 11.5 g/dL (11.5-16.0); LYMPHOCYTES # (AUTO) 1.3 10^3/uL (1.0-4.0); LYMPHOCYTES % (AUTO) 13 % (12-44); MEAN CORPUSCULAR HEMOGLOBIN 30 pg (25-34); MEAN CORPUSCULAR HGB CONC 36 g/dL (32-36); MEAN CORPUSCULAR VOLUME 84 fL (80-99); MEAN PLATELET VOLUME 9.4 fL (9.0-12.2); MONOCYTES # (AUTO) 0.7 10^3/uL (0.0-1.0); MONOCYTES % (AUTO) 7 % (0-12); NEUTROPHILS # (AUTO) 7.9 10^3/uL (1.8-7.8); NEUTROPHILS % (AUTO) 79 % (42-75); PLATELET COUNT 195 10^3/uL (130-400)
[2022-05-18 19:01] LABS: FIBRIN DEGRADATION PRODUCTS 0.6 UG/ML (0.00-0.49); PROTHROMBIN TIME PATIENT 13.7 SEC (12.2-14.7)
[2022-05-18 19:02] LABS: ALBUMIN 3.8 GM/DL (3.2-4.5); CHLORIDE 97 MMOL/L (98-107); POTASSIUM 3.8 MMOL/L (3.6-5.0); SODIUM 131 MMOL/L (135-145)
[2022-05-18 19:04] LABS: CALCIUM 9.7 MG/DL (8.5-10.1)
--- NOTE | 2022-05-18 19:04 | ED Neurological Problem ---
General Stated Complaint: RIGHT SIDE WEAKNESS/MULTIPLE FALLS Source: patient Exam Limitations: no limitations History of Present Illness Date Seen by Provider: May 18, 2022 Time Seen by Provider: 18:24 Initial Comments Patient ER by daughter with chief complaint of last known well time 1730 when some we will check on her shortly after that she was slumped over the left. She has a history of 1 stroke with no residual deficits had recently gotten out of the retirement. No cough fevers chills nausea vomiting diarrhea dysuria. Weakness on the left side. Last time she had a stroke she has had mumbling speech and confusion according to the daughter. Allergies and Home Medications Allergies Coded Allergies: Penicillins (Unverified Allergy, Unknown, RASH, SOB, 01/03/22) Sulfa (Sulfonamide Antibiotics) (Unverified Allergy, Unknown, SWELLING, 01/03/22) Patient Home Medication List Home Medication List Reviewed: Yes Atorvastatin Calcium (Atorvastatin Calcium) 40 Mg Tablet, 40 MG PO HS, (Reporte d) Entered as Reported by: IVETTE NORRIS on 11/09/20 1024 Carvedilol (Carvedilol) 25 Mg Tablet, 25 MG PO BID, (Reported) Entered as Reported by: IVETTE NORRIS on 11/09/20 1024 Cefdinir (Cefdinir) 300 Mg Capsule, 300 MG PO BID Prescribed by: KIM MEI on 04/21/22 1318 Diltiazem HCl (Diltiazem ER) 240 Mg Capsule.er, 240 MG PO DAILY, (Reported) Entered as Reported by: IVETTE NORRIS on 11/09/20 1024 Glipizide (Glipizide ER) 2.5 Mg Tab, 2.5 MG PO DAILY, (Reported) Entered as Reported by: IVETTE NORRIS on 11/09/20 1024 Levothyroxine Sodium (Levothyroxine Sodium) 50 Mcg Tablet, 50 MCG PO DAILY, ( Reported) Entered as Reported by: IVETTE NORRIS on 11/09/20 1024 Lisinopril (Lisinopril) 40 Mg Tablet, 40 MG PO DAILY, (Reported) Entered as Reported by: IVETTE NORRIS on 11/09/20 1024 Metformin HCl (Metformin HCl ER) 750 Mg Tab.er.24h, 750 MG PO BID, (Reported) Entered as Reported by: IVETTE NORRIS on 11/09/20 1024 Risperidone (Risperidone) 0.5 Mg Tablet, 0.5 MG PO BID, (Reported) Entered as Reported by: IVETTE NORRIS on 04/19/22 1352 Review of Systems Review of Systems Constitutional: No chills, No diaphoresis Eyes: Denies Blindness, Denies Blurred Vision Past Jzchtfy-Dpiwkp-Bsuwmu Hx Immunizations Up To Date First/Initial COVID19 Vaccinat: SEP 2021 Second COVID19 Vaccination Joseph: SEP 2021 Third COVID19 Vaccination Date: SEP 2021 Past Medical History Surgery/Hospitalization HX: CATARACT January Surgeries: Yes (RIGHT PAROTIDECTOMY 2010) Tonsillectomy Respiratory: No Cardiac: Yes High Cholesterol, Hypertension Neurological: No 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 oz. kg; 160.90 BMI Method: General Appearance: No WD/WN, No no apparent distress HEENT: No PERRL/EOMI, No normal ENT inspection, No TMs normal, No pharynx normal Neck: No non-tender, No full range of motion, No supple, No normal inspection Respiratory: No lungs clear, No normal breath sounds, No no respiratory distress, No no accessory muscle use Cardiovascular: No normal peripheral pulses, No regular rate, rhythm Peripheral Pulses: 2+ Radial Pulses (R), 2+ Radial Pulses (L) Gastrointestinal: No normal bowel sounds, No non tender, No soft Neurologic/Psychiatric: alert, normal mood/affect, oriented x 3 Crainal Nerves: normal hearing, PERRL Coordination/Gait: normal finger to nose Motor/Sensory: no motor deficit, no sensory deficit Skin: normal color, warm/dry Stroke Onset of Symptoms Date of Onset of Symptoms: May 18, 2022 Time of Symptom Onset: 17:30 Onset of Symptoms: Yes Symptoms onset unknown: No NIH Stroke Scale Assessment Select: Initial Level of Consciousness: 0=Alert (0), Level of Consciousness- Questions: 0=Answers both month/age (0), LOC Commands: 0=Performs both tasks (0), Gaze: Normal (0), Visual Delong: 0=No visual loss (0), Facial Movement (Facial Paresis): 1=Minor paralysis (1), Motor Function-Arms Right: 1=Drift (1), Motor Function-Arms Left: 2=Some effort/gravity (2), Motor Function-Legs Right: 1=Drift (1), Motor Function-Legs Left: 2=Some effort/gravity (2), Limb Ataxia: 0=Absent (0), Sensory: 0=Normal:no loss (0), Best Language: 0=No aphasia (0), Dysarthria: 0=Normal (0), Extinction & Inattention: 0=No abnormality (0), Total: 7 Stroke Thrombolytic Exclusion Age 18 or Over: Yes Acute intenal hemorrhage: Yes History of CVA: No Uncontrolled Coagulation Defec: No Intracranial Hemorrhage: Yes Severe Hypertension: No GI or Bleed: No Subarachnoid Hemorrhage: No Intracranial Neoplasm/Aneurysm: No Oral Anticoagulants: No Surgery or Trauma: No Puncture of Non-Compressible V: No Recent CPR: No Diabetic Hemorrhagic Retinopat: No Organ Biopsy: No Recent Obstetric Delivery: No Glucose: Yes Significant Hepatic Dysfunctio: No NIH Stoke Scale >22: No Bacterial Endocarditis: No Pericarditis: No Improving Symptoms: No Platelets: No TPA Contraindication: No Progress/Results/Core Measures Results/Orders Lab Results Laboratory Tests Test 05/18/22 18:39 05/18/22 18:40 05/18/22 19:57 Range/Units Glucometer 326 H 70-110 MG/DL White Blood Count 10.0 4.3-11.0 10^3/uL Red Blood Count 3.78 L 3.80-5.11 10^6/uL Hemoglobin 11.5 11.5-16.0 g/dL Hematocrit 32 L 35-52 % Mean Corpuscular Volume 84 80-99 fL Mean Corpuscular Hemoglobin 30 25-34 pg Mean Corpuscular Hemoglobin Concent 36 32-36 g/dL Red Cell Distribution Width 12.8 10.0-14.5 % Platelet Count 195 130-400 10^3/uL Mean Platelet Volume 9.4 9.0-12.2 fL Immature Granulocyte % (Auto) 0 % Neutrophils (%) (Auto) 79 H 42-75 % Lymphocytes (%) (Auto) 13 12-44 % Monocytes (%) (Auto) 7 0-12 % Eosinophils (%) (Auto) 1 0-10 % Basophils (%) (Auto) 0 0-10 % Neutrophils # (Auto) 7.9 H 1.8-7.8 10^3/uL Lymphocytes # (Auto) 1.3 1.0-4.0 10^3/uL Monocytes # (Auto) 0.7 0.0-1.0 10^3/uL Eosinophils # (Auto) 0.1 0.0-0.3 10^3/uL Basophils # (Auto) 0.0 0.0-0.1 10^3/uL Immature Granulocyte # (Auto) 0.0 0.0-0.1 10^3/uL Prothrombin Time 13.7 12.2-14.7 SEC INR Comment 1.0 0.8-1.4 Activated Partial Thromboplast Time 33 24-35 SEC D-Dimer 0.60 H 0.00-0.49 UG/ML Sodium Level 131 L 135-145 MMOL/L Potassium Level 3.8 3.6-5.0 MMOL/L Chloride Level 97 L 98-107 MMOL/L Carbon Dioxide Level 20 L 21-32 MMOL/L Anion Gap 14 5-14 MMOL/L Blood Urea Nitrogen 24 H 7-18 MG/DL Creatinine 1.17 0.60-1.30 MG/DL Estimat Glomerular Filtration Rate 48 BUN/Creatinine Ratio 21 Glucose Level 333 H 70-105 MG/DL Calcium Level 9.7 8.5-10.1 MG/DL Corrected Calcium 9.9 8.5-10.1 MG/DL Total Bilirubin 1.6 H 0.1-1.0 MG/DL Aspartate Amino Transf (AST/SGOT) 14 5-34 U/L Alanine Aminotransferase (ALT/SGPT) 18 0-55 U/L Alkaline Phosphatase 114 40-136 U/L Troponin I < 0.028 <0.028 NG/ML Total Protein 7.0 6.4-8.2 GM/DL Albumin 3.8 3.2-4.5 GM/DL Urine Color YELLOW Urine Clarity CLEAR Urine pH 5.5 5-9 Urine Specific Bittinger 1.010 L 1.016-1.022 Urine Protein TRACE H NEGATIVE Urine Glucose (UA) 3+ H NEGATIVE Urine Ketones NEGATIVE NEGATIVE Urine Nitrite POSITIVE H NEGATIVE Urine Bilirubin NEGATIVE NEGATIVE Urine Urobilinogen 0.2 < = 1.0 MG/DL Urine Leukocyte Esterase 2+ H NEGATIVE Urine RBC (Auto) TRACE-I H NEGATIVE Urine RBC 2-5 H /HPF Urine WBC 25-50 H /HPF Urine Squamous Epithelial Cells 2-5 /HPF Urine Crystals NONE /LPF Urine Bacteria LARGE H /HPF Urine Casts NONE /LPF Urine Mucus NEGATIVE /LPF Urine Culture Indicated YES My Orders Orders - WILL QUEZADA Cbc With Automated Diff (05/18/22 18:40) Protime With Inr (05/18/22 18:40) Partial Thromboplastin Time (05/18/22 18:40) Comprehensive Metabolic Panel (05/18/22 18:40) Fibrin Degradation Products (05/18/22 18:40) Troponin I Travis (05/18/22 18:40) Ua Culture If Indicated (05/18/22 18:40) Chest 1 View, Ap/Pa Only (05/18/22 18:40) Catheter(Urinary) Insert & Ass 03,15 (05/18/22 18:40) Ekg Tracing (05/18/22 18:40) Nothing By Mouth (05/18/22 Dinner) Accucheck Stat ONCE (05/18/22 18:40) Ed Iv/Invasive Line Start (05/18/22 18:40) Ed Iv/Invasive Line Start (05/18/22 18:40) Vital Signs Stroke Patient Q15M (05/18/22 18:40) Ct Head Wo-R/O Stroke (05/18/22 18:40) O2 (05/18/22 18:40) Intake & Output 06,14,22 (05/18/22 18:40) Monitor-Rhythm Ecg Trace Only (05/18/22 18:40) Dysphagia Screening Tool Q10MX1 (05/18/22 18:40) Post Thrombolytic Adminstratio (05/18/22 18:40) Lipid Panel (05/19/22 06:00) Lidocaine 2% (Urojet) (Xylocaine Urojet) (05/18/22 18:45) Ct Angio Head/Neck (05/18/22 19:16) Iohexol Injection (Omnipaque 350 Mg/Ml 1 (05/18/22 19:30) Ns (Ivpb) (Sodium Chloride 0.9% Ivpb Bag (05/18/22 19:30) Urine Culture (05/18/22 19:57) Medications Given in ED Current Medications Medications Dose Ordered Sig/Home Route Start Time Stop Time Status Last Admin Dose Admin Iohexol 100 ml ONCE ONCE IV 05/18/22 19:30 05/18/22 19:31 DC 05/18/22 19:37 75 ML Sodium Chloride 100 ml ONCE ONCE IV 05/18/22 19:30 05/18/22 19:31 DC 05/18/22 19:37 80 ML Vital Signs/I&O 05/18/22 18:31 Temp 36.9 Pulse 73 Resp 20 B/P (MAP) 175/106 (129) Progress Progress Note : Time: 19:[address] Basurto, stroke neurologist on-call at [facility] about potential ischemic stroke. She feels it is were not 100% certain on the timeline but it is likely very recent without last stroke sometime since January she would not recommend tPA at this time. Its not possible to get records in a timely fashion from [place] at this hour. Were going to pursue a CT angiogram and not do tPA based on these recommendations. Initial ECG Impression Date: May 18, 2022 Initial ECG Impression Time: 19:10 Initial ECG Rate: 70 Initial ECG Rhythm: Normal Sinus Initial ECG Intervals: Normal Initial ECG Impression: Normal Comment Normal sinus rhythm without clinically relevant ST elevation or depression. Diagnostic Imaging Diagonstic Imaging: CT Plain Films/CT/US/NM/MRI: head Comments [facility], [place] NAME: LAURA ESPITIA [facility] REC#: [id number] PT STATUS: REG ER : 1945 PHYSICIAN: WILL QUEZADA MD ADMIT DATE: 05/18/22/ER Signed Date of Exam:05/18/22 CT HEAD WO-R/O STROKE PROCEDURE: CT head w/o r/o stroke. TECHNIQUE: Multiple contiguous axial images were obtained through the brain without the use of intravenous contrast. Auto Exposure Controls were utilized during the CT exam to meet ALARA standards for radiation dose reduction. DATE: May 18, 2022. COMPARISON: CT head November 08, 2020. INDICATION: 76-year-old female, right-sided weakness. Altered mental status. FINDINGS: There is a polypoid lesion in the right maxillary sinus likely reflecting a mucous retention cyst. The right frontal sinus is hypoplastic. There are areas of low-attenuation in the periventricular and subcortical white matter most likely reflecting findings of chronic small vessel ischemic disease. There is mild cerebral volume loss. There is no identified hyperdense vessel sign. There is no mass effect or midline shift. There is no acute intracranial hemorrhage. There is no abnormal extra-axial fluid collection. IMPRESSION: No identified acute intracranial abnormality. Dictated by: Dictated on workstation # [id number] Dict: 05/18/221852 Trans: 05/18/221910 E [id number] Interpreted by: ABDI MORELAND MD Electronically signed by: ABDI MORELAND MD 05/18/221910 Reviewed: Reviewed by Me Diagonstic Imaging: Xray Plain Films/CT/US/NM/MRI: chest Comments [facility], [place] NAME: LAURA ESPITIA [facility] REC#: [id number] PT STATUS: REG ER : 1945 PHYSICIAN: WILL QUEZADA MD ADMIT DATE: 05/18/22/ER Signed Date of Exam:05/18/22 CHEST 1 VIEW, AP/PA ONLY INDICATION: Stroke with altered mental status EXAMINATION: Chest 05/18/2022 COMPARISON: 04/18/2022. FINDINGS: The cardiomediastinal silhouette is unremarkable. The pulmonary vasculature is within normal limits. The lungs and pleural spaces are clear. IMPRESSION: No evidence of an acute cardiopulmonary process. Dictated by: Dictated on workstation # [id number] Dict: 05/18/221858 Trans: 05/18/221921 DONALD [id number] Interpreted by: CHEN BOURGEOIS MD Electronically signed by: CHEN BOURGEOIS MD 05/18/221921 Reviewed: Reviewed by Me Diagonstic Imaging: CT (a) Plain Films/CT/US/NM/MRI: head Comments NAME: LAURA ESPITIA [facility] REC#: [id number] PT STATUS: REG ER : 1945 PHYSICIAN: WILL QUEZADA MD ADMIT DATE: 05/18/22/ER Draft Date of Exam:05/18/22 CT ANGIO HEAD/NECK Procedure: CT angiography of the head and CT angiography of the neck with and without contrast. Technique: Contiguous noncontrast images were obtained from the skull base through the vertex. After intravenous contrast administration, helical CT angiography of the neck was performed. Source data was reformatted into 3D MIP projections. Delayed post contrast acquisition was also obtained. Auto Exposure Controls were utilized during the CT exam to meet ALARA standards for radiation dose reduction. Date: May 18, 2022. Indication: 76-year-old female, stroke. Right-sided weakness. Altered mental status. Comparison: CT head without contrast May 18, 2022. Findings: The left common carotid artery is patent. There is calcified plaque at the left carotid bifurcation and proximal segment of the left internal carotid artery with 50% stenosis of the proximal aspect of the left internal carotid artery. There are calcifications of the cavernous segment of the left internal carotid artery. The left internal carotid artery is patent. There is no identified large vessel occlusion involving the left middle cerebral artery or left anterior cerebral artery. The right anterior cerebral artery is patent. There does appear to be a small caliber anterior communicating artery. The right middle cerebral artery is without identified large vessel occlusion. The right internal carotid artery demonstrates calcifications in its cavernous segment. The right internal carotid artery is patent. There is retropharyngeal course of the right internal carotid artery. There is no high-grade stenosis of the right internal carotid artery. There is calcified plaque at the level of the proximal aspect of the right internal carotid artery. The right common carotid artery is patent. The left vertebral artery is conventional in origin. The left vertebral artery is patent. The basilar artery is patent. The right and left posterior cerebral arteries are patent. The right and left posterior inferior cerebellar arteries are patent in their proximal aspects. The right vertebral artery is patent and conventional in origin. The visualized portions of the lung bases are clear. There is mucosal enhancement and wall thickening of the upper and mid esophagus. There is no identified abnormal intracranial enhancement. Impression: 1. No identified large vessel arterial head and neck occlusion. 2. 50% stenosis of the proximal aspect of the left internal carotid artery. 3. Mucosal enhancement and wall thickening of the mid to upper esophagus. This can be seen with esophagitis or malignancy. Further evaluation with upper endoscopy is recommended. Dictated on workstation # [id number] Dict: 05/18/222014 Trans: 05/18/222035 PJE [id number] Interpreted by: ABDI MORELAND MD Electronically signed by: Reviewed: Reviewed by Me Departure Communication (Admissions) Time/Spoke to Admitting Phy: 21:20 Discussed the case with Dr. Desai who agrees to observe the patient in the cardiac stepdown telemetry with MRI in the morning Impression Primary Impression: CVA (cerebral vascular accident) Qualified Codes: I63.9 - Cerebral infarction, unspecified Additional Impression: TIA (transient ischemic attack) Disposition: ADMITTED INPATIENT Condition: Stable Admissions Decision to Admit Reason: Admit from ER (General) Decision to Admit/Date: May 18, 2022 Time/Decision to Admit Time: 21:00 Departure-Patient Inst. Referrals: HUONG PETERS MD (PCP/Family) Primary Care Physician WILL QUEZADA May 18, 2022 19:04
[2022-05-18 19:05] LABS: GLUCOSE 333 MG/DL (70-105)
[2022-05-18 19:06] LABS: CARBON DIOXIDE 20 MMOL/L (21-32)
[2022-05-18 19:07] LABS: BILIRUBIN,TOTAL 1.6 MG/DL (0.1-1.0)
[2022-05-18 19:08] LABS: ALKALINE PHOSPHATASE 114 U/L (40-136); CREATININE SERUM 1.17 MG/DL (0.60-1.30); GFR ESTIMATED 48
[2022-05-18 19:09] LABS: BUN/CREATININE RATIO 21
[2022-05-18 19:11] LABS: ALANINE AMINOTRANSFERASE 18 U/L (0-55)
--- NOTE | 2022-05-18 19:11 | Diagnostic Imaging Report ---
PROCEDURE: CT head w/o r/o stroke. TECHNIQUE: Multiple contiguous axial images were obtained through the brain without the use of intravenous contrast. Auto Exposure Controls were utilized during the CT exam to meet ALARA standards for radiation dose reduction. DATE: May 18, 2022. COMPARISON: CT head November 08, 2020. INDICATION: 76-year-old female, right-sided weakness. Altered mental status. FINDINGS: There is a polypoid lesion in the right maxillary sinus likely reflecting a mucous retention cyst. The right frontal sinus is hypoplastic. There are areas of low-attenuation in the periventricular and subcortical white matter most likely reflecting findings of chronic small vessel ischemic disease. There is mild cerebral volume loss. There is no identified hyperdense vessel sign. There is no mass effect or midline shift. There is no acute intracranial hemorrhage. There is no abnormal extra-axial fluid collection. IMPRESSION: No identified acute intracranial abnormality. Dictated by: Dictated on workstation # [id number]
[2022-05-18] MEDS ORDERED: NS 100 ML (IVPB) BAG IV ONE (19:30)
[2022-05-18] MEDS ORDERED: IOHEXOL 350 MG/ML 100 ML (OMNIPAQUE 350) VIAL IV ONE (19:30)
[2022-05-18 20:06] LABS: BILIRUBIN,URINE NEGATIVE (NEGATIVE); CLARITY,URINE CLEAR; COLOR,URINE YELLOW; GLUCOSE, URINE (UA) 3+ (NEGATIVE); KETONES,URINE NEGATIVE (NEGATIVE); LEUKOCYTE ESTERASE ,URINE 2+ (NEGATIVE); NITRITE,URINE POSITIVE (NEGATIVE); PH,URINE 5.5 (5-9); PROTEIN,URINE TRACE (NEGATIVE)
--- NOTE | 2022-05-18 20:37 | Diagnostic Imaging Report ---
Procedure: CT angiography of the head and CT angiography of the neck with and without contrast. Technique: Contiguous noncontrast images were obtained from the skull base through the vertex. After intravenous contrast administration, helical CT angiography of the neck was performed. Source data was reformatted into 3D MIP projections. Delayed post contrast acquisition was also obtained. Auto Exposure Controls were utilized during the CT exam to meet ALARA standards for radiation dose reduction. Date: May 18, 2022. Indication: 76-year-old female, stroke. Right-sided weakness. Altered mental status. Comparison: CT head without contrast May 18, 2022. Findings: The left common carotid artery is patent. There is calcified plaque at the left carotid bifurcation and proximal segment of the left internal carotid artery with 50% stenosis of the proximal aspect of the left internal carotid artery. There are calcifications of the cavernous segment of the left internal carotid artery. The left internal carotid artery is patent. There is no identified large vessel occlusion involving the left middle cerebral artery or left anterior cerebral artery. The right anterior cerebral artery is patent. There does appear to be a small caliber anterior communicating artery. The right middle cerebral artery is without identified large vessel occlusion. The right internal carotid artery demonstrates calcifications in its cavernous segment. The right internal carotid artery is patent. There is retropharyngeal course of the right internal carotid artery. There is no high-grade stenosis of the right internal carotid artery. There is calcified plaque at the level of the proximal aspect of the right internal carotid artery. The right common carotid artery is patent. The left vertebral artery is conventional in origin. The left vertebral artery is patent. The basilar artery is patent. The right and left posterior cerebral arteries are patent. The right and left posterior inferior cerebellar arteries are patent in their proximal aspects. The right vertebral artery is patent and conventional in origin. The visualized portions of the lung bases are clear. There is mucosal enhancement and wall thickening of the upper and mid esophagus. There is no identified abnormal intracranial enhancement. Impression: 1. No identified large vessel arterial head and neck occlusion. 2. 50% stenosis of the proximal aspect of the left internal carotid artery. 3. Mucosal enhancement and wall thickening of the mid to upper esophagus. This can be seen with esophagitis or malignancy. Further evaluation with upper endoscopy is recommended. Dictated by: Dictated on workstation # [id number]
[2022-05-18 20:51] LABS: BACTERIA,URINE LARGE /HPF; WBC,URINE 25-50 /HPF
[2022-05-18 22:12] VITALS: BP 145/65
[2022-05-18 22:15] VITALS: BP 158/58
[2022-05-18 22:30] VITALS: BP 157/66
[2022-05-18 22:45] VITALS: BP 142/59
[2022-05-18 23:00] VITALS: BP 142/59
[2022-05-18] MEDS ORDERED: MILK OF MAGNESIA 400 MG/5 ML 30 ML UDC PO PRN (23:00)
[2022-05-18] MEDS ORDERED: CATHETER FLUSH 10 ML SYR IVP PRN (23:00)
[2022-05-18] MEDS ORDERED: BISACODYL 10 MG SUPP (DULCOLAX) PR PRN (23:00)
[2022-05-18] MEDS ORDERED: ONDANSETRON 4 MG/2 ML (SDV) Z0FRAN IV PRN (23:00)
[2022-05-18] MEDS ORDERED: ACETAMINOPHEN 325 MG TABLET PO PRN (23:00)
[2022-05-19] VITALS (9 sets, daily range): BP systolic 111–204; BP diastolic 54–110
[2022-05-19] MEDS: inSUlin ASPART (NovoLOG) 1 UNIT/0.01 ML (CHARGE PER UNIT) SC SCH ×5 (00:19→20:40)
[2022-05-19] MEDS: risperiDONE 0.5 MG (RisperDAL) TABLET PO SCH ×4 (00:27→21:08)
[2022-05-19 05:17] LABS: BASOPHILS % (AUTO) 0 % (0-10); EOSINOPHILS % (AUTO) 1 % (0-10); HEMATOCRIT 29 % (35-52); HEMOGLOBIN 10.3 g/dL (11.5-16.0); LYMPHOCYTES # (AUTO) 0.9 10^3/uL (1.0-4.0); LYMPHOCYTES % (AUTO) 12 % (12-44); MEAN CORPUSCULAR HEMOGLOBIN 30 pg (25-34); MEAN CORPUSCULAR HGB CONC 36 g/dL (32-36); MEAN CORPUSCULAR VOLUME 85 fL (80-99); MEAN PLATELET VOLUME 9.2 fL (9.0-12.2); MONOCYTES # (AUTO) 0.6 10^3/uL (0.0-1.0); MONOCYTES % (AUTO) 9 % (0-12); NEUTROPHILS # (AUTO) 5.6 10^3/uL (1.8-7.8); NEUTROPHILS % (AUTO) 78 % (42-75); PLATELET COUNT 156 10^3/uL (130-400); WHITE BLOOD COUNT 7.1 10^3/uL (4.3-11.0)
[2022-05-19 05:28] LABS: POTASSIUM 3.2 MMOL/L (3.6-5.0)
[2022-05-19 05:29] LABS: CALCIUM 9.4 MG/DL (8.5-10.1)
[2022-05-19 05:34] LABS: CREATININE SERUM 0.81 MG/DL (0.60-1.30)
[2022-05-19] MEDS: CATHETER FLUSH 10 ML SYR IVP SCH ×3 (06:00→21:00)
[2022-05-19] MEDS ORDERED: inSUlin ASPART (NovoLOG) 1 UNIT/0.01 ML (CHARGE PER UNIT) SC SCH (06:00)
[2022-05-19] MEDS: DOCUSATE SODIUM 100 MG (COLACE) CAP PO SCH (08:48)
[2022-05-19] MEDS: CLOPIDOGREL 75 MG (PLAVIX) TABLET PO SCH (09:26)
[2022-05-19] MEDS: cefTRIAXone 1 GM PRE-MIX 50 ML IV SCH (09:26)
--- NOTE | 2022-05-19 09:29 | Physical Therapy Evaluation ---
PT Evaluation-General Medical Diagnosis Admission Date May 18, 2022 at 21:30 Medical Diagnosis: CVA vs. TIA Onset Date: May 18, 2022 Therapy Diagnosis Therapy Diagnosis: generalized weakness/debility Precautions Precautions/Isolations: Aspiration, Fall Prevention, Standard Precautions Referral Physician: Lloyd Reason for Referral: Evaluation/Treatment Medical History Pertinent Medical History: CVA, DM, HTN, Hypothroidism Current History ER secondary to found slumped to left Reviewed History: Yes Social History Home: Single Level Current Living Status: Other Family Prior Prior Level of Function SCALE: Activities may be completed with or without assistive devices. 5-Bntozhtqsq-gdbhwie completes the activity by him/herself with no assistance from a helper. 5-Set-up or Clean-up Assistance-helper sets up or cleans up; patient completes activity. [place] assists only prior to or following the activity. 4-Supervision or Touching Assistance-helper provides verbal cues and/or touching/steadying and/or contact guard assistance as patient completes activity. Assistance may be provided throughout the activity or intermittently. 3-Partial/Moderate Assistance-helper does LESS THAN HALF the effort. [place] lifts, holds or supports trunk or limbs, but provides less than half the effort. 2-Substantial/Maximal Assistance-helper does MORE THAN HALF the effort. [place] lifts or holds trunk or limbs and provides more than half the effort. 6-Nfyscyvbu-lrtlpe does ALL the effort. Patient does none of the effort to com plete the activity. Or, the assistance of 2 or more helpers is required for the patient to complete the activity. If activity was not attempted, code reason: 7-Patient Refused. 9-Not Applicable-not attempted and the patient did not perform the activity before the current illness, exacerbation or injury. 10-Not Attempted due to Environmental Limitations-(lack of equipment, weather restraints, etc.). 88-Not Attempted due to Medical Conditions or Safety Concerns. Bed Mobility: 3 Transfers (B,C,W/C): 3 Gait: 3 Indoor Mobility (Ambulation): Needed Some Help Prior Devices Use: Walker PT Evaluation-Current Subjective Patient is in bed and agrees to PT. Noted incontinence of urine soaking bedding and clothing. RN made aware. Objective Patient Orientation: Person, Confused ROM/Strength ROM Lower Extremities bilateral LE WFL Strength Lower Extremities 3-/5 grossly bilateral LE (no formal testing due to patient's inability to follow simple direction to perform) Integumentary/Posture Bowel Incontinence: Yes Bladder Incontinence: Yes Posture trunk flexed posture Neuromuscular (Tone, Coordination, Reflexes) diminished coordination due to weakness Sensory Vision: Unable to Assess Hearing: Functional Transfers Roll Left to Right (QC): 2 Lying to Sitting/Side of Bed(Q: 2 Sit to Stand (QC): 2 Chair/Xbh-ax-Drybu Xfer(QC): 2 Gait Mode of Locomotion: Walk Anticipated Mode of Locomotion: Walk Walk 10 feet (QC): 1 Walk 50 ft with 2 Turns(QC): 88 Walk 150 ft (QC): 88 Distance: 10' retropulsive Gait Assistive Device: FWW Comments/Gait Description patient is retropulsive with all mobility Balance Sitting Static: Fair Sitting Dynamic: Fair Standing Static: Poor Standing Dynamic: Poor Assessment/Needs Patient has very strong, foul urine odor. RN present to assist with cleansing and dressing (dependent). Patient drools continuously. Patient will benefit from skilled PT to address functional strength and mobility. Rehab Potential: Guarded PT Mcc Goals Mcc Goals PT Mcc Goals Time Frame: Jun 03, 2022 Roll Left & Right (QC): 4 Sit to Lying (QC): 4 Lying-Sitting on Side/Bed(QC): 4 Sit to Stand (QC): 4 Chair/Dbz-pn-Ezwym Xfer(QC): 4 Toilet Transfer (QC): 4 Walk 10 feet (QC): 4 Walk 50ft with 2 Turns (QC): 4 Walk 150 ft (QC): 4 PT Plan Problem List Problem List: Activity Tolerance, Functional Strength, Safety, Balance, Gait, Transfer, Bed Mobility Treatment/Plan Treatment Plan: Continue Plan of Care Treatment Plan: Bed Mobility, Education, Functional Activity Nerissa, Functional Strength, Gait, Safety, Therapeutic Exercise, Transfers Treatment Duration: Jun 03, 2022 Frequency: 6 times per week Estimated Hrs Per Day: .25 hour per day Time/GCodes Time In: 800 Time Out: 818 Total Billed Treatment Time: 18 Total Billed Treatment 1 visit EVMod 18 min EDMOND DRAKE PT May 19, 2022 09:29
--- NOTE | 2022-05-19 12:53 | Diagnostic Imaging Report ---
PROCEDURE: MR imaging of the brain without contrast. TECHNIQUE: Multiplanar, multisequence MR imaging of the brain was performed without contrast. INDICATION: Stroke. TIA. COMPARISON: CTA head and neck from 05/18/2022. MRI brain without contrast from 11/08/2020. FINDINGS: Advanced generalized parenchymal volume loss. Advanced nonspecific T2 hyperintensities in the supratentorial white matter. Chronic lacunar infarct in the right thalamus is new compared to the prior. A previously seen T1 hyperintensity in the right basal ganglia has resolved. There is a new subcentimeter periventricular infarct in the periventricular white matter of the posterior left frontal lobe. No hemosiderin deposition or evidence of intracranial hemorrhage. Normal morphology including the major midline structures, sella, posterior fossa and cerebellopontine angle. Normal intracranial flow voids. No hydrocephalus or extra-axial fluid collections. Postoperative changes in the globes. Mild mucosal thickening in the ethmoid sinuses. The mastoids are clear. Normal bone marrow signal. IMPRESSION: 1. Subcentimeter wuszi-jt-ykmymehx infarct in the periventricular deep white matter of the posterior left frontal lobe. 2. Chronic lacunar infarct in the right basal ganglia is new compared to 11/08/2020. 3. Advanced generalized parenchymal volume loss and chronic small vessel ischemic change. Dictated by: Dictated on workstation # [id number]
--- NOTE | 2022-05-19 13:55 | ST Dysphagia Evaluation ---
Speech Evaluation-General Medical Diagnosis CVA vs. TIA Onset Date: May 18, 2022 Therapy Diagnosis Therapy Diagnosis: Oropharyngeal Dysphagia Precautions Precautions: Fall, Pressure Ulcer, Aspiration Precautions/Isolations: Aspiration, Fall Prevention, Standard Precautions, Pressure Ulcer Referral Referring Physician: Dr. Acosta Reason for Referral: Evaluation/Treatment Medical History Pertinent Medical History: CVA, DM, HTN, Hypothroidism Current History The patient is a 76 year-old female with a past medical history of HTN, high cholesterol, diabetes, and stroke, who presented to [facility] with left sided weakness. 05/19/2022: IMPRESSION: 1. Subcentimeter cgivy-lc-vsobebgw infarct in the periventricular deep white matter of the posterior left frontal lobe. 2. Chronic lacunar infarct in the right basal ganglia is new compared to 11/08/2020. 3. Advanced generalized parenchymal volume loss and chronic small vessel ischemic change. Reviewed History: Yes Social History Current Living Status: Other Family Speech PLF/Current-Dysphagia Prior Level of Function The patient was unable to provide the clinician prior medical history (P.O. intake) information. Per patient, "Yeah, I can eat it all." The patient's baseline diet consistency is unknown to this clinician following a chart review. Subjective The patient was lying in bed, sleeping upon entrance to her room by the clinician. The patient woke with a verbal clinician greeting and required consistent verbal greeting for continued alertness and participation in the clinician bedside swallowing evaluation. The patient was positioned upright in bed for safe swallowing. The patient was noted to have anterior bolus loss of secretions from the left labial side. The patient has a "wet" vocal quality at baseline and is intermittently able to clear her vocal quality with a cued throat clear from the clinician. CXR: 05/19/22: IMPRESSION: No evidence of an acute cardiopulmonary process. The patient's RN stated the patient completed and "passed" a RN Dysphagia Screen, however, was noted to be coughing following her meal on this date. Cognitive Status Patient Orientation: Confused Oral Motor Skills Dentition: Natural Current Food Consistancy: Regular, Thin Liquids Ability to Follow Directions: Poor Oral Expression Ability: Moderate Impairment Voice Voice Phonatory-Based Quality: Weak Voice Pitch: Normal Voice Loudness: Normal Face Facial Symmetry: Symmetrical (Grossly symmetrical at rest.) The patient was unable to consistently follow verbal commands or direct modeling for completion of the oral mechanism evaluation. Oral-Facial Assessment Oral-Facial Dentition: Normal Labial Seal Description: Droops Left Volitional Dry Swallow: No Voluntary Cough: No Can Clear Throat Volitionally: No Productive Cough: No Productive Throat Clear: No Dysphagia Evaluation Consistencies Presented: Regular, Thin Liquid, Melstone Thick Liquid, Pureed Oral Phase: Anterior Spillage, Left Pocketing, Reduced Oral Transit The patient was able to accept items appropriately from the teaspoon and straw. Anterior left bolus loss was present with all consistencies. The patient displayed oral holding and left pocketing of the material, requiring manual removal with a spoon and digital finger sweep (masticated cracker). Additionally, verbal prompting was intermittently required to elicit posterior transfer and a pharyngeal swallow. Prolonged mastication was present with solid consistencies. Laryngeal elevation was present to palpation. Multiple swallows were elicited per bolus. The patient displayed overt s/s of suspected aspiration with thin liquid via teaspoon and straw characterized by delayed, rigorous coughing and an increasingly wet vocal quality. The patient was unable to clear her vocal quality with a cued throat clear or cough by the clinician. The patient does not display overt s/s of suspected aspiration with nectar-thick liquid via teaspoon or straw, puree or solid. Dietary Recommendations: Pureed Liquid Recommendations: Mel[place] Consistancy Recommendations: - Dysphagia one consistency diet with mildly thick (nectar-thick) liquids, as tolerated. - Fully upright and ALERT for P.O. intake. - Full, 1:1 staff supervision and feeding with all P.O. intake. - Assess for oral pocketing (left) throughout P.O. intake. - Provided verbal prompts, as necessary, during periods of oral holding. - Crush medication and place in puree for administration. - Remain upright for a minimum of 30 minutes following P.O. intake. - Monitor for s/s of suspected aspiration with P.O. intake. If demonstrated, contact speech pathology. The results and recommendations were provided to the patient, placed on the in room white board, and discussed with the RN immediately following the evaluation. Dysphagia Evaluation Summary The patient demonstrated oropharyngeal dysphagia characterized by reduced labial (left) and lingual range of motion, strength, and coordination, a suspected delayed onset of the pharyngeal swallow, and poor airway protection in the presence of bolus material. Speech Short Term Goals Short Term Goals Short Term Goals 1. The patient and staff will follow safe swallowing strategies with 90% accuracy, independently. Time Frame-STG: Three Days. Speech Custodial Goals Custodial Goals 1. The patient will tolerate the least restrictive diet consistency without s/s of suspected aspiration. Speech-Plan Treatment Plan Speech Therapy Treatment Plan: Continue Plan of Care Treatment Duration: May 24, 2022 Frequency: 2 times per week Estimated Hrs Per Day: .25 hour per day Rehab Potential: Poor Safety Risks/Education Teaching Recipient: Patient Teaching Methods: Discussion Response to Teaching: Reinforcement Needed Education Topics Provided: Results, Recommendations, Plan of Care Time Speech Therapy Time In: 12:52 Speech Therapy Time Out: 13:13 Total Billed Time: 21 Billed Treatment Time 1, SHARMAINE COLÓN ELIZABETH ST May 19, 2022 13:55
--- NOTE | 2022-05-19 13:55 | Occupational Therapy Eval ---
OT Evaluation-General/PLF Medical Diagnosis Admission Date May 18, 2022 at 21:30 Medical Diagnosis: CVA vs. TIA Onset Date: May 18, 2022 Therapy Diagnosis Therapy Diagnosis: decreased ADL status Precautions Precautions/Isolations: Aspiration, Fall Prevention, Standard Precautions Referral Physician: Lloyd Gomez Reason: Evaluation/Treatment Medical History Pertinent Medical History: CVA, DM, HTN, Hypothroidism Additional Medical History CVA, HTN, DM, hypothyroidism Current History ED with R side weakness and multiple falls. Social History Home: Single Level Current Living Status: Other Family Entry Into Home: Stairs Without Railing Steps Into Home: 3 ADL-Prior Level of Function SCALE: Activities may be completed with or without assistive devices. 5-Jztasdlmfu-tyqsgsr completes the activity by him/herself with no assistance from a helper. 5-Set-up or Clean-up Assistance-helper sets up or cleans up; patient completes activity. [place] assists only prior to or following the activity. 4-Supervision or Touching Assistance-helper provides verbal cues and/or touching/steadying and/or contact guard assistance as patient completes activity. Assistance may be provided throughout the activity or intermittently. 3-Partial/Moderate Assistance-helper does LESS THAN HALF the effort. [place] lifts, holds or supports trunk or limbs, but provides less than half the effort. 2-Substantial/Maximal Assistance-helper does MORE THAN HALF the effort. [place] lifts or holds trunk or limbs and provides more than half the effort. 2-Itqehvfok-uqcwth does ALL the effort. Patient does none of the effort to complete the activity. Or, the assistance of 2 or more helpers is required for the patient to complete the activity. If activity was not attempted, code reason: 7-Patient Refused. 9-Not Applicable-not attempted and the patient did not perform the activity before the current illness, exacerbation or injury. 10-Not Attempted due to Environmental Limitations-(lack of equipment, weather restraints, etc.). 88-Not Attempted due to Medical Conditions or Safety Concerns. ADL PLOF Comments Pt reports living with her son, and was independent with ADLs and functional mobility, accuracy of information unknown Self Care: Unknown Functional Cognition: Unknown DME/Equipment: Bath Chair OT Current Status Subjective Pt in bed, eyes closed. Pt had difficulty keeping eyes open throughout session. Mental Status/Objective Patient Orientation: Person, Confused, Place Attachments: Other-See Comments (Guido) Current Upper Extremity ROM BUE shoulder flexion to approx 90 degrees Upper Extremity Sensation WFL per pt report Upper Extremity Strength grossly 3-/5 ADL-Treatment Oral Hygiene (QC): 2 (Max A with oral swab) Lower Body Dressing (QC): 1 (Per PT and nursing report.) Toileting Hygiene (QC): 1 (Per PT and nursing report.) Other Treatments Pt in bed, agreeable to OT tx. Pt provided information about PLOF and home set up to her ability, and participated in UE screen. Pt agreeable to oral care, max A required using oral sponge. Pt able to bring to mouth, and scrub tongue slightly, but would stop moving sponge and require cues to continue with task. Max A overall for thoroughness. OT then provided pt with washcloth, she washed L eye and placed wash cloth on mouth, eyes closed. OT then completed face washing, max A. Post tx, pt in bed, call light in reach and all needs met. Education OT Patient Education: Correct positioning, Modified ADL techniques, Progress toward Goal/Update tx plan, Purpose of tx/functional activities, Rehab process Teaching Recipient: Patient Teaching Methods: Discussion Response to Teaching: Reinforcement Needed OT Retirement Goals Retirement Goals Time Frame: Jun 02, 2022 Eating (QC): 4 Oral Hygiene (QC): 3 Toileting Hygiene (QC): 3 Shower/Bathe Self (QC): 3 Upper Body Dressing (QC): 4 Lower Body Dressing (QC): 3 On/Off Footwear (QC): 2 Additional Goals: 1-Demonstrate ADL Tasks, 2-Verbalize Understanding, 3- ImproveStrength/Nerissa 1=Demonstrate adherence to instructed precautions during ADL tasks. 2=Patient will verbalize/demonstrate understanding of assistive devices/modifications for ADL. 3=Patient will improve strength/tolerance for activity to enable patient to perform ADL's. OT Education/Plan Problem List/Assessment Assessment: Decreased Activ Tolerance, Decreased Safety Aware, Decreased UE Strength, Impaired Funct Balance, Impaired I ADL's, Impaired Self-Care Skills, Restricted Funct UE ROM Discharge Recommendations Plan/Recommendations: Continue POC Therapy Discharge Recommendati: Post Acute OT (SNF) Treatment Plan/Plan of Care Patient would benefit from OT for education, treatment and training to promote independence in ADL's, mobility, safety and/or upper extremity function for ADL's. Plan of Care: ADL Retraining, Functional Mobility, UE Funct Exercise/Act Treatment Duration: Jun 02, 2022 Frequency: 3 times per week (3-5 times per week) Rehab Potential: Guarded Time/GCodes Start Time: 13:23 Stop Time: 13:33 Total Time Billed (hr/min): 10 Billed Treatment Time 1, ARACELI GONZALEZ OT May 19, 2022 13:55
[2022-05-19] MEDS ORDERED: KCL 20 MEQ TAB (K-DUR) PO NR (16:00)
--- NOTE | 2022-05-19 18:02 | History & Physical-Hospitalist ---
History of Present Illness HPI/Chief Complaint Jami Walker is a 76 year old female with PMH HTN, T2DM, HLD, hypothyroidism, CVA, who presented with altered mental status. She was found slumped over in her chair. She denies any weakness. She denies trouble speaking and swallowing. She denies dizziness. She denies fevers and chills. She denies chest pain and palpi tations. She denies shortness of breath and cough. She denies abdominal pain, nausea, vomiting, and diarrhea. She does report dysuria, frequency, and urgency. Source: patient, RN/MD Exam Limitations: clinical condition Date Seen 05/19/22 Time Seen by a Provider: 10:20 Attending Physician Kelby Villegas MD PCP Admitting Physician: Belkis Desai DO Attending Physician: Kim Mei MD Referring Physician Date of Admission May 18, 2022 at 21:30 Home Medications & Allergies Home Medications Reviewed patient Home Medication Reconciliation performed by pharmacy medication reconciliations word processor technician and/or nursing. Patients Allergies have been reviewed. Allergies Allergies Coded Allergies Penicillins (Unverified Allergy, Unknown, RASH, SOB, 01/03/22) Sulfa (Sulfonamide Antibiotics) (Unverified Allergy, Unknown, SWELLING, 01/03) Past Sxloupk-Klpufz-Upnjfn Hx Patient Social History Tobacco Use?: No Smoking Status: Never a Smoker Use of E-Cig and/or Vaping dev: No Substance use?: No Alcohol Use?: No Pt feels they are or have been: Yes Immunizations Up To Date First/Initial COVID19 Vaccinat: SEP 2021 Second COVID19 Vaccination Joseph: oct 2021 Tetanus Booster (TDap): Unknown Hepatitis A: No Hepatitis B: No Current Status Advance Directives: No Communicates: Verbally Primary Language: Kazakh Preferred Spoken Language: Kazakh Is interpretation needed?: No Sensory deficits: Vision impairment Implanted or Applied Medical D: None Past Medical History Surgeries: Tonsillectomy High Cholesterol, Hypertension PUBLIC SAFETY DISPATCHER History: Menopausal Sexually Transmitted Disease: No Diabetes, Insulin dep, Hypothyroidsim Blood Disorders: No Family Medical History Heart Disease Review of Systems Constitutional: no symptoms reported EENTM: no symptoms reported Respiratory: no symptoms reported Cardiovascular: no symptoms reported Gastrointestinal: no symptoms reported Genitourinary: dysuria, frequency Physical Exam Physical Exam Vital Signs Vital Signs - First Documented 05/18/22 05/18/22 18:31 22:12 Temp 36.9 Pulse 73 Resp 20 B/P (MAP) 175/106 (129) Pulse Ox 95 O2 Delivery Room Air Capillary Refill : Height, Weight, BMI Height: '" Weight: lbs. oz. kg; 21.29 BMI Method: General Appearance: No Apparent Distress, WD/WN HEENT: PERRL/EOMI, Pharynx Normal Neck: Normal Inspection, Supple Respiratory: Lungs Clear, Normal Breath Sounds, No Respiratory Distress Cardiovascular: Regular Rate, Rhythm, Systolic Murmur Gastrointestinal: Normal Bowel Sounds, Non Tender, Soft Extremity: Normal Inspection, Pedal Edema Neurologic/Psychiatric: Alert, chemical process equipment operator II-XII Norm as Tested; No Aphasia; Disoriented; No Facial Droop; Motor Weakness (bilateral legs 3/5) Skin: Normal Color, Warm/Dry Results Results/Procedures Labs Laboratory Tests 05/18/22 18:40 05/19/22 05:06 Patient resulted labs reviewed. Imaging: Reviewed Imaging Report Assessment/Plan Admission Diagnosis Stroke like symptoms Admission Status: Observation Assessment and Plan Acute ischemic stroke History of CVA CT head with no acute abnormalities MRI with acute-subacute posterior left frontal infarct Plavix Lipitor PT/OT/ST UTI Urine culture with E coli Final susceptibilities pending Rocephin Esophageal thickening CT revealed esophageal thickening, esophagitis vs malignancy Outpatient follow up for EGD recommended ASHLYN Resolved Hypokalemia Monitor and replace electrolytes as needed HTN Continue home meds HLD Statin DVT prophylaxis: Lovenox Diagnosis/Problems Diagnosis/Problems (1) Ischemic stroke of frontal lobe Status: Acute (2) Esophageal thickening Status: Acute (3) UTI (urinary tract infection) Status: Acute (4) ASHLYN (acute kidney injury) Status: Acute (5) Hypokalemia Status: Acute Clinical Quality Measures Stroke: Date of last known well: May 18, 2022 Time of last known well: 17:30 Symptoms onset unknown: No KIM MEI MD May 19, 2022 18:01
[2022-05-19] MEDS: ENOXAPARIN 40 MG/0.4 ML (LOVENOX) SYR SC SCH (20:59)
[2022-05-20] VITALS: BP 130/70
[2022-05-20 04:00] VITALS: BP 113/67
[2022-05-20] MEDS: CATHETER FLUSH 10 ML SYR IVP SCH ×3 (06:39→20:32)
[2022-05-20] MEDS: inSUlin ASPART (NovoLOG) 1 UNIT/0.01 ML (CHARGE PER UNIT) SC SCH ×4 (06:39→20:52)
[2022-05-20] MEDS: DOCUSATE SODIUM 100 MG (COLACE) CAP PO SCH (07:56)
[2022-05-20 08:02] VITALS: BP 116/61
[2022-05-20] MEDS: CLOPIDOGREL 75 MG (PLAVIX) TABLET PO SCH (08:41)
[2022-05-20] MEDS: cefTRIAXone 1 GM PRE-MIX 50 ML IV SCH (08:41)
[2022-05-20] MEDS: risperiDONE 0.5 MG (RisperDAL) TABLET PO SCH ×2 (08:41→20:29)
[2022-05-20] MEDS ORDERED: NON-FORMULARY MEDICATION 1 EA EA PO SCH (10:00)
--- NOTE | 2022-05-20 10:06 | Progress Note - Hospitalist ---
Subjective HPI/CC On Admission Date Seen by Provider: May 20, 2022 Jami Walker is a 76 year old female with PMH HTN, T2DM, HLD, hypothyroidism, CVA, who presented with altered mental status. She was found slumped over in her chair. She denies any weakness. She denies trouble speaking and swallowing. She denies dizziness. She denies fevers and chills. She denies chest pain and palpitations. She denies shortness of breath and cough. She denies abdominal pain, nausea, vomiting, and diarrhea. She does report dysuria, frequency, and urgency. Subjective/Events-last exam Pt reports feeling well. No complaints. Rn Reports still weak though. I spoke with patient and called and updated daughter of results of MRI and that patient was COVID positive. Objective Exam Vital Signs Vital Signs Date Time Temp Pulse Resp B/P (MAP) Pulse Ox O2 Delivery O2 Flow Rate FiO2 05/20/22 08:02 36.2 59 19 116/61 (79) 96 Room Air Capillary Refill : General Appearance: No Apparent Distress, Chronically ill, Thin Respiratory: Lungs Clear, No Respiratory Distress Cardiovascular: Regular Rate, Rhythm, No Murmur Gastrointestinal: Normal Bowel Sounds, Soft Neurologic/Psychiatric: Alert, Oriented x3; No Aphasia, No Facial Droop Results/Procedures Lab Patient resulted labs reviewed. Imaging: Reviewed Imaging Report Assessment/Plan Assessment and Plan Assess & Plan/Chief Complaint Acute ischemic stroke History of CVA CT head with no acute abnormalities MRI with acute-subacute posterior left frontal infarct Plavix Lipitor PT/OT/ST COVID19 Family positive for COVID so swabbed and positive Discussed EUA status of Paxlovid and patient consents Discussed with pharmacy and ordered as nonformulary Asymptomatic but high risk so meets requirements for Paxlovid No indication for steroids or other treatment at this time UTI Urine culture with E coli Final susceptibilities pending Rocephin Esophageal thickening CT revealed esophageal thickening, esophagitis vs malignancy Outpatient follow up for EGD recommended NIDDMII SSI BS improved Hold Metformin as contrast was given 05/18- can resume tomorrow if needed HTN Continue home meds HLD Statin Hypothyroidism Appears to have last filled meds in March Check TSH then resume if needed DVT prophylaxis: Lovenox Clinical Quality Measures Stroke: Date of last known well: May 18, 2022 Time of last known well: 17:30 Symptoms onset unknown: WESTON Hightower MD May 20, 2022 10:06
[2022-05-20] MEDS ORDERED: NIRMATRELVIR/RITONAVIR (PAXLOVID) TABLET PO SCH (10:30)
--- NOTE | 2022-05-20 11:01 | Physical Therapy Daily Note ---
PT Daily Note-Current Subjective Pt notes that she is short of breath on arrival. She is agreeable to sitting up and standing. Mental Status Patient Orientation: Person, Place, Time, Situation Attachments: Oxygen, Reinoso Catheter Transfers SCALE: Activities may be completed with or without assistive devices. 5-Bfgxfamjtp-tnqauyo completes the activity by him/herself with no assistance f rom a helper. 5-Set-up or Clean-up Assistance-helper sets up or cleans up; patient completes activity. [place] assists only prior to or following the activity. 4-Supervision or Touching Assistance-helper provides verbal cues and/or touching/steadying and/or contact guard assistance as patient completes activity. Assistance may be provided throughout the activity or intermittently. 3-Partial/Moderate Assistance-helper does LESS THAN HALF the effort. [place] lifts, holds or supports trunk or limbs, but provides less than half the effort. 2-Substantial/Maximal Assistance-helper does MORE THAN HALF the effort. [place] lifts or holds trunk or limbs and provides more than half the effort. 5-Wkijnkmke-jngwai does ALL the effort. Patient does none of the effort to complete the activity. Or, the assistance of 2 or more helpers is required for the patient to complete the activity. If activity was not attempted, code reason: 7-Patient Refused. 9-Not Applicable-not attempted and the patient did not perform the activity before the current illness, exacerbation or injury. 10-Not Attempted due to Environmental Limitations-(lack of equipment, weather restraints, etc.). 88-Not Attempted due to Medical Conditions or Safety Concerns. Roll Left & Right (QC): 3 Sit to Lying (QC): 3 Lying to Sitting/Side of Bed(Q: 3 Sit to Stand (QC): 3 Gait Training Does the Patient Walk?: Yes Distance: 3ft Gait Assistive Device: FWW Able to take steps forward and side 3ft each. Rapidly fatigued. Wheelchair Training Does the Pt Use a Wheelchair?: No Exercises Supine Ex: LE Protocol Supine Reps: 15 Assessment Current Status: Good Progress (L) UE delayed movement and diminished ranger aide relative to (R). (L) LE required contact assist during supine ex due to rapid fatigue. No (R) LE assist needed. PT Longterm Goals Longterm Goals PT Bale Sewer Goals Time Frame: Jun 03, 2022 Roll Left & Right (QC): 4 Sit to Lying (QC): 4 Lying-Sitting on Side/Bed(QC): 4 Sit to Stand (QC): 4 Chair/Vdw-mt-Tpdif Xfer(QC): 4 Toilet Transfer (QC): 4 Walk 10 feet (QC): 4 Walk 50ft with 2 Turns (QC): 4 Walk 150 ft (QC): 4 PT Plan Treatment/Plan Treatment Plan: Continue Plan of Care Treatment Plan: Bed Mobility, Education, Functional Activity Nerissa, Functional Strength, Gait, Safety, Therapeutic Exercise, Transfers Treatment Duration: Jun 03, 2022 Frequency: 6 times per week Estimated Hrs Per Day: .25 hour per day Time/GCodes Time In: 904 Time Out: 919 Total Billed Treatment Time: 15 Total Billed Treatment 1, ex 15 DINA MCCORMACK PT May 20, 2022 11:01
[2022-05-20 12:00] VITALS: BP 139/62
[2022-05-20] MEDS: NIRMATRELVIR/RITONAVIR (PAXLOVID) TABLET PO SCH ×2 (12:01→20:31)
[2022-05-20] MEDS: MEROPENEM 500 MG in NS (IVPB) 100 ML IV SCH ×2 (14:21→20:29)
[2022-05-20 16:45] VITALS: BP 171/77
[2022-05-20] MEDS: ENOXAPARIN 40 MG/0.4 ML (LOVENOX) SYR SC SCH (16:48)
[2022-05-20 19:52] VITALS: BP 177/76
[2022-05-20] MEDS: PROMETHAZINE/ CODEINE SYRUP 5 ML UDC PO PRN (20:52)
[2022-05-21] VITALS (8 sets, daily range): BP systolic 116–193; BP diastolic 66–89
[2022-05-21] MEDS: MEROPENEM 500 MG in NS (IVPB) 100 ML IV SCH ×4 (02:10→20:49)
[2022-05-21] MEDS: CATHETER FLUSH 10 ML SYR IVP SCH ×3 (02:11→21:11)
[2022-05-21] MEDS: inSUlin ASPART (NovoLOG) 1 UNIT/0.01 ML (CHARGE PER UNIT) SC SCH ×4 (05:48→21:02)
[2022-05-21 06:16] LABS: HEMATOCRIT 30 % (35-52); HEMOGLOBIN 10.5 g/dL (11.5-16.0); MEAN CORPUSCULAR HEMOGLOBIN 30 pg (25-34); MEAN CORPUSCULAR HGB CONC 35 g/dL (32-36); MEAN CORPUSCULAR VOLUME 86 fL (80-99); MEAN PLATELET VOLUME 9.6 fL (9.0-12.2); PLATELET COUNT 161 10^3/uL (130-400); WHITE BLOOD COUNT 7.8 10^3/uL (4.3-11.0)
[2022-05-21 06:27] LABS: POTASSIUM 3.5 MMOL/L (3.6-5.0)
[2022-05-21 06:28] LABS: CALCIUM 9.2 MG/DL (8.5-10.1)
[2022-05-21 06:33] LABS: CREATININE SERUM 0.94 MG/DL (0.60-1.30)
[2022-05-21] MEDS: DOCUSATE SODIUM 100 MG (COLACE) CAP PO SCH (08:28)
[2022-05-21] MEDS: CLOPIDOGREL 75 MG (PLAVIX) TABLET PO SCH (08:32)
[2022-05-21] MEDS: NIRMATRELVIR/RITONAVIR (PAXLOVID) TABLET PO SCH ×2 (08:37→21:03)
[2022-05-21] MEDS: risperiDONE 0.5 MG (RisperDAL) TABLET PO SCH ×2 (08:42→21:02)
--- NOTE | 2022-05-21 10:48 | Progress Note - Hospitalist ---
Subjective HPI/CC On Admission Date Seen by Provider: May 21, 2022 Jami Walker is a 76 year old female with PMH HTN, T2DM, HLD, hypothyroidism, CVA, who presented with altered mental status. She was found slumped over in her chair. She denies any weakness. She denies trouble speaking and swallowing. She denies dizziness. She denies fevers and chills. She denies chest pain and palpitations. She denies shortness of breath and cough. She denies abdominal pain, nausea, vomiting, and diarrhea. She does report dysuria, frequency, and urgency. Subjective/Events-last exam Pt reports doing well. No complaints. States she had a good birthday yesterday despite being in the hospital. Discussed results of her urine culture and need for IV abx. Objective Exam Vital Signs Vital Signs Date Time Temp Pulse Resp B/P (MAP) Pulse Ox O2 Delivery O2 Flow Rate FiO2 05/21/22 08:18 36.1 74 20 160/82 (108) 96 Room Air Capillary Refill : General Appearance: No Apparent Distress, Chronically ill Respiratory: Lungs Clear, No Respiratory Distress Cardiovascular: Regular Rate, Rhythm, No Murmur Neurologic/Psychiatric: Alert, Oriented x3 Results/Procedures Lab Laboratory Tests 05/21/22 05:49 Patient resulted labs reviewed. Imaging: Reviewed Imaging Report Assessment/Plan Assessment and Plan Assess & Plan/Chief Complaint Acute ischemic stroke History of CVA CT head with no acute abnormalities MRI with acute-subacute posterior left frontal infarct Plavix/ASA Lipitor- hold will on Paxlovid PT/OT/ST COVID19 Family positive for COVID so swabbed and positive Continue Paxlovid No indication for steroids or other treatment at this time UTI Urine culture with E coli- ESBL Continue Merrem Esophageal thickening CT revealed esophageal thickening, esophagitis vs malignancy Outpatient follow up for EGD recommended NIDDMII SSI BS improved Resume home meds when med rec done- last time meds were filled was in March for 30 day supply so will await pharmacy med rec given BS relatively well controlled this AM (fasting 173) HTN BP ~160s, trend HLD Statin on hold for paxlovid Hypothyroidism Appears to have last filled meds in March TSH normal, unsure if taking synthroid DVT prophylaxis: Lovenox Clinical Quality Measures Stroke: Date of last known well: May 18, 2022 Time of last known well: 17:30 Symptoms onset unknown: WESTON Hightower MD May 21, 2022 10:47
[2022-05-21] MEDS: ENOXAPARIN 40 MG/0.4 ML (LOVENOX) SYR SC SCH (18:25)
[2022-05-21] MEDS: PROMETHAZINE/ CODEINE SYRUP 5 ML UDC PO PRN (21:06)
[2022-05-22] MEDS: MEROPENEM 500 MG in NS (IVPB) 100 ML IV SCH ×4 (02:19→23:32)
[2022-05-22 03:50] VITALS: BP 146/77
[2022-05-22] MEDS: inSUlin ASPART (NovoLOG) 1 UNIT/0.01 ML (CHARGE PER UNIT) SC SCH ×4 (05:39→20:25)
[2022-05-22] MEDS: CATHETER FLUSH 10 ML SYR IVP SCH ×3 (05:43→20:25)
[2022-05-22 07:41] VITALS: BP 180/75
[2022-05-22] MEDS: risperiDONE 0.5 MG (RisperDAL) TABLET PO SCH ×2 (08:48→20:25)
[2022-05-22] MEDS: DOCUSATE SODIUM 100 MG (COLACE) CAP PO SCH (08:48)
[2022-05-22] MEDS: CLOPIDOGREL 75 MG (PLAVIX) TABLET PO SCH (08:48)
[2022-05-22] MEDS: NIRMATRELVIR/RITONAVIR (PAXLOVID) TABLET PO SCH ×2 (08:50→20:25)
[2022-05-22 11:35] VITALS: BP 193/91
--- NOTE | 2022-05-22 11:38 | Progress Note - Hospitalist ---
Subjective HPI/CC On Admission Date Seen by Provider: May 22, 2022 Jami Walker is a 76 year old female with PMH HTN, T2DM, HLD, hypothyroidism, CVA, who presented with altered mental status. She was found slumped over in her chair. She denies any weakness. She denies trouble speaking and swallowing. She denies dizziness. She denies fevers and chills. She denies chest pain and palpitations. She denies shortness of breath and cough. She denies abdominal pain, nausea, vomiting, and diarrhea. She does report dysuria, frequency, and urgency. Subjective/Events-last exam Pt reports doing well. No compalints. Requesting DC home. Discussed her urine culture results and need to stay for IV abx still. Objective Exam Vital Signs Vital Signs Date Time Temp Pulse Resp B/P (MAP) Pulse Ox O2 Delivery O2 Flow Rate FiO2 05/22/22 08:00 Room Air 05/22/22 07:41 36.1 67 16 180/75 (110) 96 Capillary Refill : General Appearance: No Apparent Distress, WD/WN Respiratory: Lungs Clear, No Respiratory Distress Cardiovascular: Regular Rate, Rhythm, No Murmur Neurologic/Psychiatric: Alert, Oriented x3 Results/Procedures Lab Patient resulted labs reviewed. Imaging: Reviewed Imaging Report Assessment/Plan Assessment and Plan Assess & Plan/Chief Complaint Acute ischemic stroke History of CVA CT head with no acute abnormalities MRI with acute-subacute posterior left frontal infarct Plavix/ASA Lipitor- hold will on Paxlovid PT/OT/ST COVID19 Family positive for COVID so swabbed and positive on 05/19 Continue Paxlovid No indication for steroids or other treatment at this time UTI Urine culture with E coli- ESBL Continue Merrem Esophageal thickening CT revealed esophageal thickening, esophagitis vs malignancy Outpatient follow up for EGD recommended NIDDMII SSI Fasting blood sugar 131 but meal time insulin in 200s Resume home meds when med rec done- last time meds were filled was in March for 30 day supply so will await pharmacy med rec given BS relatively well controlled this AM (fasting 173) HTN BP ~160s, trend Will add amlodipine as it having some BP >190 and far enough out from CVA to start safely lowering BP HLD Statin on hold for paxlovid Hypothyroidism Appears to have last filled meds in March TSH normal, unsure if taking synthroid DVT prophylaxis: Lovenox Clinical Quality Measures Stroke: Date of last known well: May 18, 2022 Time of last known well: 17:30 Symptoms onset unknown: WESTON Hightower MD May 22, 2022 11:38
--- NOTE | 2022-05-22 11:59 | Physical Therapy Daily Note ---
PT Daily Note-Current Subjective Patient lying supine in bed upon PT arrival, agreeable to treatment. Rates pain currently at 0/10 Mental Status Patient Orientation: Person Transfers SCALE: Activities may be completed with or without assistive devices. 1-Ghdesqktva-duorxek completes the activity by him/herself with no assistance from a helper. 5-Set-up or Clean-up Assistance-helper sets up or cleans up; patient completes activity. [place] assists only prior to or following the activity. 4-Supervision or Touching Assistance-helper provides verbal cues and/or touching/steadying and/or contact guard assistance as patient completes activity. Assistance may be provided throughout the activity or intermittently. 3-Partial/Moderate Assistance-helper does LESS THAN HALF the effort. [place] lifts, holds or supports trunk or limbs, but provides less than half the effort. 2-Substantial/Maximal Assistance-helper does MORE THAN HALF the effort. [place] lifts or holds trunk or limbs and provides more than half the effort. 3-Fbmztszij-lhdqyv does ALL the effort. Patient does none of the effort to complete the activity. Or, the assistance of 2 or more helpers is required for the patient to complete the activity. If activity was not attempted, code reason: 7-Patient Refused. 9-Not Applicable-not attempted and the patient did not perform the activity before the current illness, exacerbation or injury. 10-Not Attempted due to Environmental Limitations-(lack of equipment, weather restraints, etc.). 88-Not Attempted due to Medical Conditions or Safety Concerns. Roll Left & Right (QC): 3 Sit to Lying (QC): 3 Lying to Sitting/Side of Bed(Q: 3 Sit to Stand (QC): 3 Chair/Spq-io-Vaori Xfer(QC): 3 Gait Training Does the Patient Walk?: Yes Distance: 50 Walk 10 feet (QC): 3 Walk 50 ft with 2 Turns(QC): 3 Gait Persons Needed: 1 Gait Assistive Device: FWW Assessment Current Status: Fair Progress Patient tolerated treatment fair. Performs all observed bed mobility and transfers with min a. She requires verbal cues for all bed mobility and transfers. Presents with a blank expression on her face and responds to questions as if she is not totally sure what is going on. Patient ambulates 40 feet in the room with FWW, with min A and verbal cues for safety, progression, posture, obstacles and proper use of the FWW. Patient in chair post treatment with all needs met, nursing notified, call light in reach and chair alarm activated. PT Chemical Unit Operator Goals Chemical Unit Operator Goals PT Chemical Unit Operator Goals Time Frame: Jun 03, 2022 Roll Left & Right (QC): 4 Sit to Lying (QC): 4 Lying-Sitting on Side/Bed(QC): 4 Sit to Stand (QC): 4 Chair/Kry-kv-Kexap Xfer(QC): 4 Toilet Transfer (QC): 4 Walk 10 feet (QC): 4 Walk 50ft with 2 Turns (QC): 4 Walk 150 ft (QC): 4 PT Plan Treatment/Plan Treatment Plan: Continue Plan of Care Treatment Plan: Bed Mobility, Education, Functional Activity Nerissa, Functional Strength, Gait, Safety, Therapeutic Exercise, Transfers Treatment Duration: Jun 03, 2022 Frequency: 6 times per week Estimated Hrs Per Day: .25 hour per day Safety Risks/Education Patient Education: Gait Training Teaching Recipient: Patient Teaching Methods: Demonstration, Discussion Response to Teaching: Reinforcement Needed Time/GCodes Time In: 1130 Time Out: 1147 Total Billed Treatment Time: 17 Total Billed Treatment Visit, Gait BEAU HART PT May 22, 2022 11:59
[2022-05-22] MEDS ORDERED: hydrALAZINE (APESOLINE) 20 MG/ML VIAL IV PRN (12:00)
[2022-05-22] MEDS: amLODIPine 5 MG (NORVASC) TAB PO SCH (12:37)
--- NOTE | 2022-05-22 13:36 | Occupational Ther Daily Note ---
OT Current Status-Daily Note Subjective Pt alert, lying in bed. Nrsg stated that pt just got back into bed. Pt agrees to therapy. Pt has flat affect though does answer questions. Mental Status/Objective Patient Orientation: Person, Place, Time, Situation Attachments: IV ADL-Treatment Therapy Code Descriptions/Definitions Functional [place] Measure: 0=Not Assessed/NA 4=Minimal Assistance 1=Total Assistance 5=Supervision or Setup 2=Maximal Assistance 6=Modified [place] 3=Moderate Assistance 7=Complete IndependenceSCALE: Activities may be completed with or without assistive devices. 7-Ccrtevrtgg-ebohpbp completes the activity by him/herself with no assistance from a helper. 5-Set-up or Clean-up Assistance-helper sets up or cleans up; patient completes activity. [place] assists only prior to or following the activity. 4-Supervision or Touching Assistance-helper provides verbal cues and/or touching/steadying and/or contact guard assistance as patient completes activity. Assistance may be provided throughout the activity or intermittently. 3-Partial/Moderate Assistance-helper does LESS THAN HALF the effort. [place] lifts, holds or supports trunk or limbs, but provides less than half the effort. 2-Substantial/Maximal Assistance-helper does MORE THAN HALF the effort. [place] lifts or holds trunk or limbs and provides more than half the effort. 0-Nustnqlgk-jsllud does ALL the effort. Patient does none of the effort to complete the activity. Or, the assistance of 2 or more helpers is required for the patient to complete the activity. If activity was not attempted, code reason: 7-Patient Refused. 9-Not Applicable-not attempted and the patient did not perform the activity b efore the current illness, exacerbation or injury. 10-Not Attempted due to Environmental Limitations-(lack of equipment, weather restraints, etc.). 88-Not Attempted due to Medical Conditions or Safety Concerns. Other Treatment Pt tolerated 6 B UE exercises against gravity 1 set 10 reps then stated that she was done. Skilled instruction required for correct technique and to stay focused on task. Pt demonstrated full AROM for B UE with fair strength. After session, pt lying in bed with call light/phone in reach. All needs met in room. OT Registered Route Associate Goals Custodial Goals Time Frame: Jun 02, 2022 Eating (QC): 4 Oral Hygiene (QC): 3 Toileting Hygiene (QC): 3 Shower/Bathe Self (QC): 3 Upper Body Dressing (QC): 4 Lower Body Dressing (QC): 3 On/Off Footwear (QC): 2 Additional Goals: 1-Demonstrate ADL Tasks, 2-Verbalize Understanding, 3- ImproveStrength/Nerissa 1=Demonstrate adherence to instructed precautions during ADL tasks. 2=Patient will verbalize/demonstrate understanding of assistive devices/modifications for ADL. 3=Patient will improve strength/tolerance for activity to enable patient to perform ADL's. OT Education/Plan Problem List/Assessment Assessment: Decreased Activ Tolerance, Decreased Safety Aware, Decreased UE Strength, Impaired Bed Mobility, Impaired Self-Care Skills Discharge Recommendations Plan/Recommendations: Continue POC Treatment Plan/Plan of Care Patient would benefit from OT for education, treatment and training to promote independence in ADL's, mobility, safety and/or upper extremity function for ADL's. Plan of Care: ADL Retraining, Functional Mobility, UE Funct Exercise/Act Treatment Duration: Jun 02, 2022 Frequency: 3 times per week (3-5 times per week) Rehab Potential: Poor Time/GCodes Start Time: 13:09 Stop Time: 13:29 Total Time Billed (hr/min): 20 Billed Treatment Time 1 visit-EX 1 (20 min) BISHOP HUANG May 22, 2022 13:36
[2022-05-22 15:54] VITALS: BP 161/83
[2022-05-22] MEDS: ENOXAPARIN 40 MG/0.4 ML (LOVENOX) SYR SC SCH (16:24)
[2022-05-22 19:57] VITALS: BP 184/81
[2022-05-23] VITALS (7 sets, daily range): BP systolic 155–184; BP diastolic 67–90
[2022-05-23] MEDS: inSUlin ASPART (NovoLOG) 1 UNIT/0.01 ML (CHARGE PER UNIT) SC SCH ×4 (05:59→21:45)
[2022-05-23] MEDS: CATHETER FLUSH 10 ML SYR IVP SCH ×3 (06:27→21:45)
[2022-05-23] MEDS ORDERED: amLODIPine 5 MG (NORVASC) TAB PO SCH (09:00)
--- NOTE | 2022-05-23 09:32 | Speech Therapy Daily Note ---
Speech Daily Progress Note Subjective Date Seen by Provider: May 23, 2022 Time Seen by Provider: 08:50 The patient was seated upright in bed, awake and alert upon entrance to her room by the clinician. The patient was seated upright in bed for safe swallowing and was agreeable to participation in the oropharyngeal swallowing re-evaluation. Objective To note, the patient displays improved alertness and appropriateness on this date. The patient responds appropriately to the clinician's informal conversations and states prior swallowing information to the clinician. The patient has a baseline, consistent productive cough. The cough is present prior to P.O. trials. The patient is on room air with 96% SpO2%. The patient's most recent chest exam (05/18/22) reveals: No evidence of an acute cardiopulmonary process. The patient was presented with five teaspoons of water, single straw drinks of water, consecutive straw drinks of water, puree, and saltine crackers. The patient self-feeds on this date. The prior anterior loss of secretions from 05/19/22 were not visualized or present throughout today's session. Overt s/s of suspected aspiration were not present with any consistency tested. The patient's vocal quality remained consistency clear following each trial. The baseline cough was not present following any P.O. trial presented. Prolonged mastication of the solid consistency remained present on this date, however, no oral holding or pocketing were present. Recommendations: - Dysphagia three consistency diet with thin liquids, as tolerated. - Fully upright and alert for P.O. intake. - Small, single bites and sips. - Monitor for s/s of suspected aspiration with P.O. intake. If demonstrated, contact speech pathology. Speech pathology discussed the results and recommendations with the patient, wro te the recommendations of the in-room white board, and called the patient's RN at 0930. The RN was not reached, therefore, ST will continue to attempt contact to update the patient's diet consistency in her medical chart. Assessment Assessment Current Status: Good Progress Treatment Plan Continue Plan of Care Speech Short Term Goals Short Term Goals Short Term Goals 1. The patient and staff will follow safe swallowing strategies with 90% accuracy, independently. Time Frame-STG: Three Days. Speech Retirement Goals It Auditor Goals 1. The patient will tolerate the least restrictive diet consistency without s/s of suspected aspiration. Speech-Plan Treatment Plan Speech Therapy Treatment Plan: Continue Plan of Care Treatment Duration: May 24, 2022 Frequency: 2 times per week Estimated Hrs Per Day: .25 hour per day Rehab Potential: Poor Safety Risks/Education Teaching Recipient: Patient Teaching Methods: Discussion Response to Teaching: Reinforcement Needed Education Topics Provided: Results, Recommendations, Plan of Care Time Speech Therapy Time In: 08:50 Speech Therapy Time Out: 08:58 Total Billed Time: 8 Billed Treatment Time 1, SHARMAINE HALLIE JOVEL May 23, 2022 09:32
--- NOTE | 2022-05-23 09:40 | ST Cognitive Linguistic Eval ---
Speech Evaluation-General Medical Diagnosis CVA vs. TIA Onset Date: May 18, 2022 Therapy Diagnosis Therapy Diagnosis: Cognitive Linguistic Impairment Precautions Precautions: Fall, Pressure Ulcer, Aspiration Precautions/Isolations: Airborne Isolation, Fall Prevention, Pressure Ulcer Referral Referring Physician: Dr. Verdin Reason for Referral: Evaluation/Treatment Medical History Pertinent Medical History: CVA, DM, HTN, Hypothroidism Current History The patient is a 76 year-old female with a past medical history of HTN, high cholesterol, diabetes, and stroke, who presented to [facility] with left sided weakness. 05/19/2022: IMPRESSION: 1. Subcentimeter fhhvj-qv-mexkbqjy infarct in the periventricular deep white matter of the posterior left frontal lobe. 2. Chronic lacunar infarct in the right basal ganglia is new compared to 11/08/2020. 3. Advanced generalized parenchymal volume loss and chronic small vessel ischemic change. Reviewed History: Yes Social History Current Living Status: Other Family Speech PLF-Current Status Prior Level of Function The patient denied cognitive, speech, or language deficits at baseline or concerns with her current levels. Per patient, "No, I think everything is fine." Subjective The patient was seated upright in her bed, awake and alert upon entrance to her room. The patient greeted the clinician appropriately and was agreeable to participation in the cognitive linguistic assessment. Language Eval: Auditory Comprehends Simple Yes/No Ques: Functional Indent/Objects Multiple Delong: Functional Follows 1-Step Commands: Functional Follows General Conversations: Mild (With intermittent verbal repetition from the clinician. ) Language Eval: Verbal Language Completes Spontaneous Greeting: Functional Produces Auto, Serial Info: Functional Imitates Simple Words/Phrases: Functional Word Finding: Moderate Requests Basic Needs: Functional States Basic Personal Info: Functional The patient displays a flat affect throughout the interaction with the clinician. Language Evaluation: Reading The patient is able to read aloud at the single word and short phrase level. Cognitive Patient Orientation The patient is oriented to location, city, month, and year (independently). Objective Cognitive Domain Attention: Moderate Memory: Moderate Composite Severity Rating: Mild (Mild to Moderate) Objective Oral Motor/Speech Production The patient does not display dysarthria or apraxia of speech at this time. The patient's intelligibility in known and unknown contexts is mildly impaired by the patient's reduced articulatory precision ("mumbling"). Impression The patient demonstrated mild to moderate cognitive linguistic deficits in the areas of generative naming (anomia), attention, and memory. Ongoing cognitive assessment is necessary for baseline identification of deficits involving problem solving and executive functioning. Speech Short Term Goals Short Term Goals Short Term Goals 1. The patient and staff will follow safe swallowing strategies with 90% accuracy, independently. 2. The patient will demonstrate 75% accuracy with memory tasks with mild clinician verbal cueing. Time Frame-STG: Three Days. Speech Watermelon Inspector Goals Fpc Goals 1. The patient will tolerate the least restrictive diet consistency without s/s of suspected aspiration. 2. The patient will demonstrate improved cognitive linguistic skills for safe discharge to the least restrictive environment. Time Frame: Five Days Speech-Plan Treatment Plan Speech Therapy Treatment Plan: Continue Plan of Care Treatment Duration: May 24, 2022 Frequency: 2 times per week Estimated Hrs Per Day: .25 hour per day Rehab Potential: Guarded Safety Risks/Education Teaching Recipient: Patient Teaching Methods: Discussion Response to Teaching: Reinforcement Needed Education Topics Provided: Results, Recommendations, Plan of Care Time Speech Therapy Time In: 08:59 Speech Therapy Time Out: 09:15 Total Billed Time: 16 Billed Treatment Time 1, SONYA JACOBS [facility]IZABETH ST May 23, 2022 09:40
[2022-05-23] MEDS: CLOPIDOGREL 75 MG (PLAVIX) TABLET PO SCH (10:43)
[2022-05-23] MEDS: NIRMATRELVIR/RITONAVIR (PAXLOVID) TABLET PO SCH ×2 (10:44→21:44)
[2022-05-23] MEDS: DOCUSATE SODIUM 100 MG (COLACE) CAP PO SCH (10:44)
[2022-05-23] MEDS: risperiDONE 0.5 MG (RisperDAL) TABLET PO SCH ×2 (10:44→21:44)
[2022-05-23] MEDS: MEROPENEM 500 MG in NS (IVPB) 100 ML IV SCH ×2 (10:44→16:44)
[2022-05-23] MEDS: amLODIPine 5 MG (NORVASC) TAB PO SCH (10:44)
--- NOTE | 2022-05-23 11:35 | Progress Note - Hospitalist ---
Subjective HPI/CC On Admission Date Seen by Provider: May 23, 2022 Jami Walker is a 76 year old female with PMH HTN, T2DM, HLD, hypothyroidism, CVA, who presented with altered mental status. She was found slumped over in her chair. She denies any weakness. She denies trouble speaking and swallowing. She denies dizziness. She denies fevers and chills. She denies chest pain and palpitations. She denies shortness of breath and cough. She denies abdominal pain, nausea, vomiting, and diarrhea. She does report dysuria, frequency, and urgency. Subjective/Events-last exam Pt reports doing ok today. No complaints. Somewhat sleepy today but thinks she did too much yesterday. Objective Exam Vital Signs Vital Signs Date Time Temp Pulse Resp B/P (MAP) Pulse Ox O2 Delivery O2 Flow Rate FiO2 05/23/22 07:57 36.4 66 16 182/76 (111) 96 Room Air Capillary Refill : General Appearance: No Apparent Distress, Chronically ill Respiratory: Lungs Clear, No Respiratory Distress Cardiovascular: Regular Rate, Rhythm, No Murmur Neurologic/Psychiatric: Alert, Oriented x3 (to marjor details) Results/Procedures Lab Patient resulted labs reviewed. Imaging: Reviewed Imaging Report Assessment/Plan Assessment and Plan Assess & Plan/Chief Complaint Acute ischemic stroke History of CVA CT head with no acute abnormalities MRI with acute-subacute posterior left frontal infarct Plavix/ASA Lipitor- hold will on Paxlovid PT/OT/ST COVID19 Family positive for COVID so swabbed and positive on 05/19 Continue Paxlovid No indication for steroids or other treatment at this time UTI Urine culture with E coli- ESBL Continue Merrem Looking at swing bed for continued IV abx and therapy Esophageal thickening CT revealed esophageal thickening, esophagitis vs malignancy Outpatient follow up for EGD recommended NIDDMII SSI Fasting blood sugar 131 but meal time insulin in 200s Resume home meds when med rec done- last time meds were filled was in March for 30 day supply so will await pharmacy med rec given BS relatively well controlled this AM (fasting 173) HTN Continue home meds, amlodipine added HLD Statin on hold for paxlovid Hypothyroidism Appears to have last filled meds in March TSH normal, unsure if taking synthroid DVT prophylaxis: Lovenox Clinical Quality Measures Stroke: Date of last known well: May 18, 2022 Time of last known well: 17:30 Symptoms onset unknown: No WESTON PASTRANA MD May 23, 2022 11:35
--- NOTE | 2022-05-23 11:39 | Physical Therapy Daily Note ---
PT Daily Note-Current Subjective Patient agrees to PT. Mental Status Patient Orientation: Confused Attachments: IV Transfers SCALE: Activities may be completed with or without assistive devices. 6-Ymgoguxjes-jghrfxg completes the activity by him/herself with no assistance from a helper. 5-Set-up or Clean-up Assistance-helper sets up or cleans up; patient completes activity. [place] assists only prior to or following the activity. 4-Supervision or Touching Assistance-helper provides verbal cues and/or touchi ng/steadying and/or contact guard assistance as patient completes activity. Assistance may be provided throughout the activity or intermittently. 3-Partial/Moderate Assistance-helper does LESS THAN HALF the effort. [place] lifts, holds or supports trunk or limbs, but provides less than half the effort. 2-Substantial/Maximal Assistance-helper does MORE THAN HALF the effort. [place] lifts or holds trunk or limbs and provides more than half the effort. 8-Wcwjpjakc-tsmkfe does ALL the effort. Patient does none of the effort to complete the activity. Or, the assistance of 2 or more helpers is required for the patient to complete the activity. If activity was not attempted, code reason: 7-Patient Refused. 9-Not Applicable-not attempted and the patient did not perform the activity before the current illness, exacerbation or injury. 10-Not Attempted due to Environmental Limitations-(lack of equipment, weather restraints, etc.). 88-Not Attempted due to Medical Conditions or Safety Concerns. Lying to Sitting/Side of Bed(Q: 4 Sit to Stand (QC): 3 Chair/Jru-aq-Fbtfn Xfer(QC): 3 Gait Training Distance: 25' x 2 Walk 10 feet (QC): 4 Gait Assistive Device: FWW slow, shuffle gait sequence/VC for body placement in FWW Exercises Seated Therapy Exercises: Ankle pumps, Long arc quads Seated Reps: 12 (AAROM) Assessment Patient in recliner with chair alarm activated. Patient ceases treatment. PT Epoxy Coatings Installer Goals Half-Way Goals PT Epoxy Coatings Installer Goals Time Frame: Jun 03, 2022 Roll Left & Right (QC): 4 Sit to Lying (QC): 4 Lying-Sitting on Side/Bed(QC): 4 Sit to Stand (QC): 4 Chair/Ckp-iv-Mqjhy Xfer(QC): 4 Toilet Transfer (QC): 4 Walk 10 feet (QC): 4 Walk 50ft with 2 Turns (QC): 4 Walk 150 ft (QC): 4 PT Plan Treatment/Plan Treatment Plan: Continue Plan of Care Treatment Plan: Bed Mobility, Education, Functional Activity Nerissa, Functional Strength, Gait, Safety, Therapeutic Exercise, Transfers Treatment Duration: Jun 03, 2022 Frequency: 6 times per week Estimated Hrs Per Day: .25 hour per day Time/GCodes Time In: 1105 Time Out: 1115 Total Billed Treatment Time: 10 Total Billed Treatment 1 visit FA 10 min EDMOND DRAKE PT May 23, 2022 11:39
[2022-05-23] MEDS ORDERED: ACET325T38 PO (12:31)
--- NOTE | 2022-05-23 13:31 | Occupational Ther Daily Note ---
OT Current Status-Daily Note Subjective Pt in recliner, agreeable to OT Tx. ADL-Treatment Therapy Code Descriptions/Definitions Functional [place] Measure: 0=Not Assessed/NA 4=Minimal Assistance 1=Total Assistance 5=Supervision or Setup 2=Maximal Assistance 6=Modified [place] 3=Moderate Assistance 7=Complete IndependenceSCALE: Activities may be completed with or without assistive devices. 2-Rttuelwifi-aijdupm completes the activity by him/herself with no assistance from a helper. 5-Set-up or Clean-up Assistance-helper sets up or cleans up; patient completes activity. [place] assists only prior to or following the activity. 4-Supervision or Touching Assistance-helper provides verbal cues and/or touching/steadying and/or contact guard assistance as patient completes activity. Assistance may be provided throughout the activity or intermittently. 3-Partial/Moderate Assistance-helper does LESS THAN HALF the effort. [place] lifts, holds or supports trunk or limbs, but provides less than half the effort. 2-Substantial/Maximal Assistance-helper does MORE THAN HALF the effort. [place] lifts or holds trunk or limbs and provides more than half the effort. 0-Gwrozijrz-vobhiu does ALL the effort. Patient does none of the effort to compl ete the activity. Or, the assistance of 2 or more helpers is required for the patient to complete the activity. If activity was not attempted, code reason: 7-Patient Refused. 9-Not Applicable-not attempted and the patient did not perform the activity before the current illness, exacerbation or injury. 10-Not Attempted due to Environmental Limitations-(lack of equipment, weather restraints, etc.). 88-Not Attempted due to Medical Conditions or Safety Concerns. Other Treatment Pt in recliner, agreeable to OT tx. Pt declined ADLs at this time, agreeable to BUE exercises in order to increase BUE Strength and activity tolerance. Pt completed x10 reps BUEs AROM, x6 exercises, able to recall 3 from previous session. Pt declined further exercises or treatment at this time. OT encouraged pt to continue with exercises throughout the day, she verbalized understanding. Post tx, pt in recliner, call light in reach and all needs met, chair alarm activated. Education OT Patient Education: Correct positioning, Energy conservation, Exercise program, Modified ADL techniques, Progress toward Goal/Update tx plan, Purpose of tx/functional activities Teaching Recipient: Patient Teaching Methods: Demonstration, Discussion Response to Teaching: Verbalize Understanding, Return Demonstration OT Novelty Worker Goals Novelty Worker Goals Time Frame: Jun 02, 2022 Eating (QC): 4 Oral Hygiene (QC): 3 Toileting Hygiene (QC): 3 Shower/Bathe Self (QC): 3 Upper Body Dressing (QC): 4 Lower Body Dressing (QC): 3 On/Off Footwear (QC): 2 Additional Goals: 1-Demonstrate ADL Tasks, 2-Verbalize Understanding, 3- ImproveStrength/Nerissa 1=Demonstrate adherence to instructed precautions during ADL tasks. 2=Patient will verbalize/demonstrate understanding of assistive devices/modifications for ADL. 3=Patient will improve strength/tolerance for activity to enable patient to perform ADL's. OT Education/Plan Problem List/Assessment Assessment: Decreased Activ Tolerance, Decreased UE Strength, Impaired Funct Balance, Impaired I ADL's, Impaired Self-Care Skills Discharge Recommendations Plan/Recommendations: Continue POC Treatment Plan/Plan of Care Patient would benefit from OT for education, treatment and training to promote independence in ADL's, mobility, safety and/or upper extremity function for ADL's. Plan of Care: ADL Retraining, Functional Mobility, UE Funct Exercise/Act Treatment Duration: Jun 02, 2022 Frequency: 3 times per week (3-5 times per week) Rehab Potential: Guarded Time/GCodes Start Time: 13:15 Stop Time: 13:25 Total Time Billed (hr/min): 10 Billed Treatment Time 1, EX ARACELI WORKMAN OT May 23, 2022 13:31
[2022-05-23] MEDS: ENOXAPARIN 40 MG/0.4 ML (LOVENOX) SYR SC SCH (16:45)
[2022-05-24] VITALS: BP 135/73
[2022-05-24] MEDS: MEROPENEM 500 MG in NS (IVPB) 100 ML IV SCH ×2 (01:24→09:04)
[2022-05-24 03:51] VITALS: BP 138/76
[2022-05-24 05:20] VITALS: BP 145/75
[2022-05-24] MEDS: CATHETER FLUSH 10 ML SYR IVP SCH (06:03)
[2022-05-24] MEDS: inSUlin ASPART (NovoLOG) 1 UNIT/0.01 ML (CHARGE PER UNIT) SC SCH (06:05)
[2022-05-24] MEDS ORDERED: DEXTROSE 50% 50 ML (IMS) SYR ONE (06:11)
[2022-05-24] MEDS ORDERED: DEXTROSE 50% 50 ML (IMS) SYR IV ONE (06:15)
--- NOTE | 2022-05-24 06:34 | Diagnostic Imaging Report ---
EXAMINATION: CT head without contrast. TECHNIQUE: Multiple contiguous axial images were obtained through the brain without the use of intravenous contrast. All CT scans use one or more of the following dose optimizing techniques: automated exposure control, MA and/or KvP adjustment based on patient size and exam type or iterative reconstruction. HISTORY: Altered mental status. Stroke like symptoms. COMPARISON: 05/18/2022. 05/19/2022. FINDINGS: No large acute territorial ischemia, mass, or hemorrhage. No midline shift or mass effect. The small areas of acute ischemia seen on the prior MRI brain are not well characterized on this exam. Decreased attenuation is seen in the periventricular and subcortical white matter. The ventricles and cortical sulci are prominent. The basilar cisterns are patent and unremarkable. The orbits are normal. Mucosal thickening is seen throughout the paranasal sinuses. Mastoid air cells are clear. No soft tissue abnormality is seen. No osseus lesions or fractures are seen. IMPRESSION: 1. No large acute territorial ischemia, mass, or hemorrhage. 2. Chronic microvascular disease. 3. Generalized parenchymal volume loss. 4. Paranasal sinus disease. Dictated by: Dictated on workstation # [id number]
[2022-05-24 07:57] VITALS: BP 175/79
[2022-05-24] MEDS: amLODIPine 5 MG (NORVASC) TAB PO SCH (09:04)
[2022-05-24] MEDS: NIRMATRELVIR/RITONAVIR (PAXLOVID) TABLET PO SCH (09:04)
[2022-05-24] MEDS: CLOPIDOGREL 75 MG (PLAVIX) TABLET PO SCH (09:04)
[2022-05-24] MEDS: DOCUSATE SODIUM 100 MG (COLACE) CAP PO SCH (09:04)
[2022-05-24] MEDS: risperiDONE 0.5 MG (RisperDAL) TABLET PO SCH (09:11)
--- NOTE | 2022-05-24 10:25 | Discharge Summary ---
Diagnosis/Chief Complaint Date of Admission May 20, 2022 at 08:28 Date of Discharge May 24, 2022 at 10:12 Discharge Date: May 24, 2022 Admission Diagnosis Stroke like symptoms Primary Care Kelby Villegas MD Discharge Diagnosis (1) Ischemic stroke of frontal lobe Status: Acute (2) Esophageal thickening Status: Acute (3) UTI (urinary tract infection) Status: Acute (4) ASHLYN (acute kidney injury) Status: Acute (5) Hypokalemia Status: Acute Discharge Summary Discharge Physical Exam Allergies: Coded Allergies: Penicillins (Unverified Allergy, Unknown, RASH, SOB, 01/03/22) Sulfa (Sulfonamide Antibiotics) (Unverified Allergy, Unknown, SWELLING, 01/03/22) Vitals & I&Os Vital Signs Date Time Temp Pulse Resp B/P (MAP) Pulse Ox O2 Delivery O2 Flow Rate FiO2 05/24/22 07:57 36.4 56 16 175/79 (111) 99 Room Air General Appearance: No Apparent Distress, WD/WN Neurologic/Psychiatric: Alert, Oriented x3 Hospital Course Patient admitted to the hospital secondary to altered mental status and was found to have urinary tract infection, subacute stroke, and was COVID positive. She was outside of the window for tPA so was treated conservatively with physical therapy, speech therapy, Occupational Therapy. She was started on a statin but this was held due to Paxlovid course. She was continued on aspirin and Plavix for her stroke. She was treated with IV antibiotics and cultures revealed ESBL E. coli so was switched to IV meropenem. She was discharged to swing bed status for continued physical therapy and IV antibiotics. She had difficult to control blood sugars and was very sensitive to Levemir so decision was made to allow for higher blood sugars to avoid dangerous lows. Labs (last 24 hrs) Laboratory Tests 05/23/22 11:47: Glucometer 294H 05/23/22 15:23: Glucometer 323H 05/24/22 05:16: Glucometer 79 05/24/22 06:47: Glucometer 130H 05/24/22 08:18: Glucometer 106 Microbiology 05/18/22 Urine Culture - Final, Complete Escherichia coli Patient resulted labs reviewed. Pending Labs Laboratory Tests 05/24/22 05:16: Glucometer 79 05/24/22 06:47: Glucometer 130 05/24/22 08:18: Glucometer 106 Imaging: Reviewed Imaging Report Discussion & Recommendations Discharge Planning: >30 minutes discharge planning Discharge Home Medications: Active Scripts Active Reported Tylenol (Acetaminophen) 325 Mg Tablet 650 Mg PO Q6H PRN Risperidone 0.5 Mg Tablet 0.5 Mg PO BID Diltiazem ER (Diltiazem HCl) 240 Mg Capsule.er 240 Mg PO DAILY Carvedilol 25 Mg Tablet 25 Mg PO BID Levothyroxine Sodium 50 Mcg Tablet 50 Mcg PO DAILY Metformin HCl ER (Metformin HCl) 750 Mg Tab.er.24h 750 Mg PO BID Atorvastatin Calcium 40 Mg Tablet 40 Mg PO HS Lisinopril 40 Mg Tablet 40 Mg PO DAILY Glipizide ER (Glipizide) 2.5 Mg Tab 2.5 Mg PO DAILY Instructions to patient/family Please see electronic discharge instructions given to patient. Clinical Quality Measures Stroke: Date of last known well: May 18, 2022 Time of last known well: 17:30 Symptoms onset unknown: WESTON Hightower MD May 24, 2022 10:25
== END 2022-05-24 10:12 | disposition swing bed (61) | DRG 64 ==
LOC: EDUNIT# 18:28 → ER 18:30 → CSD 21:30 → OBSVTOIN 05-20 08:28 → 4TH 05-20 12:00
PROVIDERS: ADMIT Internal Medicine; ATTEND Family Medicine
DX: I63.9 Cerebral infarction, unspecified (principal); U07.1 COVID-19; N39.0 Urinary tract infection, site not specified; Z16.12 Extended spectrum beta lactamase (ESBL) resistance; N17.9 Acute kidney failure, unspecified; B96.20 Unspecified Escherichia coli [E. coli] as the cause of diseases classified elsewhere; R29.707 NIHSS score 7; K22.89 Other specified disease of esophagus; E87.6 Hypokalemia; E03.9 Hypothyroidism, unspecified; E11.9 Type 2 diabetes mellitus without complications; I10 Essential (primary) hypertension; E78.00 Pure hypercholesterolemia, unspecified; H54.7 Unspecified visual loss; Z79.84 Long term (current) use of oral hypoglycemic drugs; Z88.0 Allergy status to penicillin
CPT/HCPCS: 36415; 70450; 70496; 70498; 70551; 71045; 80048; 80053; 80061; 81000; 82947; 83036; 84443; 84484; 85025; 85027; 85379; 85610; 85730; 87077; 87088; 87184; 87186; 87636; 93005; 93041

== ENCOUNTER 2022-05-24 10:46 | Inpatient (IN) | payer MEDICARE ==
[~2022-05-24] VITALS: Ht 172.7 cm; Wt 63.5 kg
[~2022-05-24 10:46] MED LIST changes: +ACET325T38 PO
[2022-05-24] MEDS ORDERED: PROMETHAZINE/ CODEINE SYRUP 5 ML UDC PO PRN (11:00)
[2022-05-24] MEDS ORDERED: BISACODYL 10 MG SUPP (DULCOLAX) PR PRN (11:00)
[2022-05-24] MEDS ORDERED: hydrALAZINE (APESOLINE) 20 MG/ML VIAL IV PRN (11:00)
[2022-05-24] MEDS ORDERED: MEROPENEM 500 MG in NS (IVPB) 100 ML IV SCH (11:00)
[2022-05-24] MEDS ORDERED: ONDANSETRON 4 MG/2 ML (SDV) Z0FRAN IV PRN (11:00)
[2022-05-24] MEDS ORDERED: ENOXAPARIN 40 MG/0.4 ML (LOVENOX) SYR SC SCH (11:00)
[2022-05-24] MEDS ORDERED: MILK OF MAGNESIA 400 MG/5 ML 30 ML UDC PO PRN (11:00)
[2022-05-24] MEDS ORDERED: ACETAMINOPHEN 325 MG TABLET PO PRN (11:00)
[2022-05-24 11:21] VITALS: BP 152/84
[2022-05-24] MEDS ORDERED: CATHETER FLUSH 10 ML SYR IVP PRN (11:30)
--- NOTE | 2022-05-24 11:30 | Physical Therapy Evaluation ---
PT Evaluation-General Medical Diagnosis Admission Date May 24, 2022 at 10:46 Medical Diagnosis: stroke like symptoms Onset Date: May 18, 2022 Therapy Diagnosis Therapy Diagnosis: impaired mobility, strength, endurance, balance Referral Physician: Familia Reason for Referral: Evaluation/Treatment Medical History Pertinent Medical History: CVA, DM, HTN, Hypothroidism Social History Home: Single Level Current Living Status: Other Family Prior Prior Level of Function SCALE: Activities may be completed with or without assistive devices. 4-Ziusawlouw-eyyhnyn completes the activity by him/herself with no assistance from a helper. 5-Set-up or Clean-up Assistance-helper sets up or cleans up; patient completes activity. [place] assists only prior to or following the activity. 4-Supervision or Touching Assistance-helper provides verbal cues and/or touching/steadying and/or contact guard assistance as patient completes activity. Assistance may be provided throughout the activity or intermittently. 3-Partial/Moderate Assistance-helper does LESS THAN HALF the effort. [place] lifts, holds or supports trunk or limbs, but provides less than half the effort. 2-Substantial/Maximal Assistance-helper does MORE THAN HALF the effort. [place] lifts or holds trunk or limbs and provides more than half the effort. 2-Tcijslebl-hhgpaa does ALL the effort. Patient does none of the effort to complete the activity. Or, the assistance of 2 or more helpers is required for the patient to complete the activity. If activity was not attempted, code reason: 7-Patient Refused. 9-Not Applicable-not attempted and the patient did not perform the activity before the current illness, exacerbation or injury. 10-Not Attempted due to Environmental Limitations-(lack of equipment, weather restraints, etc.). 88-Not Attempted due to Medical Conditions or Safety Concerns. Bed Mobility: 3 Transfers (B,C,W/C): 3 Gait: 3 Indoor Mobility (Ambulation): Needed Some Help Prior Devices Use: Walker PT Evaluation-Current Subjective Patient in bed pre tx, agrees to PT, has no complaints of pain. Pt/Family Goals "to get stronger" Objective Patient Orientation: Person, Confused ROM/Strength ROM Lower Extremities WNL Strength Lower Extremities LLE (hip flexion 3/5, knee flexin 3+/5, knee extension 3+/5, dorsiflexion 3/5), RLE (hip flexion 3/5, knee flexin 3+/5, knee extension 3+/5, dorsiflexion 3/5) Sensory Vision: Functional Hearing: Functional Sensation Right Lower Extremit: Intact Sensation Left Lower Extremity: Intact Transfers Roll Left & Right (QC): 3 (Preston) Sit to Lying (QC): 3 (Preston) Lying to Sitting/Side of Bed(Q: 3 (Preston) Sit to Stand (QC): 3 (modA) Chair/Duq-ri-Eivhl Xfer(QC): 3 (Preston) Toilet Transfer (QC): 3 (Preston) Car Transfer (QC): 10 Patient changes gown with OT sitting EOB with assist. Gait Does the Patient Walk?: Yes Mode of Locomotion: Walk Anticipated Mode of Locomotion: Walk Walk 10 feet (QC): 3 Walk 50 ft with 2 Turns(QC): 3 Walk 150 ft (QC): 88 Walking 10ft/uneven surface-QC: 10 Distance: 50' Gait Assistive Device: FWW Comments/Gait Description very slow ambulation, therapist has to assist to guide walker and with steadying assist, initially after standing patient is retropulsive but recovers when she leans forward to start walking. Wheelchair Training Wheel 50 ft with 2 turns (QC): 10 Wheel 150 ft (QC): 10 Stairs 1 Step (curb) (QC): 88 4 Steps (QC): 88 12 Steps (QC): 88 Balance Sitting Static: Fair Sitting Dynamic: Fair Standing Static: Poor Standing Dynamic: Poor Picking up an Object (QC): 88 Treatment BLE seated exercises x20 (AP, LAQ) Assessment/Needs Patient in recliner post tx with nurse call, phone, tray, all needs met, chair alarm on. Patient needs rest breaks between activities, fatigues easily. Has trouble following directions. Rehab Potential: Fair PT Half-Way Goals Half-Way Goals PT Half-Way Goals Time Frame: May 31, 2022 Roll Left & Right (QC): 4 (SBA) Sit to Lying (QC): 4 (SBA) Lying-Sitting on Side/Bed(QC): 4 (SBA) Sit to Stand (QC): 4 (CGA) Chair/Dvz-qb-Ikjuv Xfer(QC): 4 (CGA) Toilet Transfer (QC): 4 Car Transfer (QC): 10 Does the Patient Walk: Yes Walk 10 feet (QC): 4 (CGA) Walk 50ft with 2 Turns (QC): 4 (CGA) Walk 150 ft (QC): 4 (CGA) Walking 10ft on Uneven Surface: 10 1 Step (curb) (QC): 88 4 Steps (QC): 88 12 Steps (QC): 88 Picking up an Object (QC): 4 (CGA) Wheel 50 feet with 2 turns (QC: 10 Wheel 150 feet: 10 PT Plan Problem List Problem List: Activity Tolerance, Functional Strength, Safety, Balance, Gait, Transfer, Bed Mobility, ROM Treatment/Plan Treatment Plan: Continue Plan of Care Treatment Plan: Bed Mobility, Education, Functional Activity Nerissa, Functional Strength, Gait, Safety, Therapeutic Exercise, Transfers Treatment Duration: May 31, 2022 Frequency: 6 times per week Estimated Hrs Per Day: .25 hour per day Patient and/or Family Agrees t: Yes Safety Risks/Education Patient Education: Gait Training, Transfer Techniques, Correct Positioning, Safety Issues Teaching Recipient: Patient Teaching Methods: Demonstration, Discussion Response to Teaching: Reinforcement Needed Discharge Recommendations Plan Patient will perform bed mobility and transfer training, balance and endurance training, functional strengthening, stair training, gait training, and education, to improve functional mobility and independence at home. Therapy Discharge Recommendati: Scheduled Assistance, Home & Family, Post Acute PT Time/GCodes Time In: 1100 Time Out: 1125 Total Billed Treatment Time: 25 Total Billed Treatment 1 visit KAROLINA 10' FA 15' DIDI HUANG PT May 24, 2022 11:30
--- NOTE | 2022-05-24 11:33 | Occupational Therapy Eval ---
OT Evaluation-General/PLF Medical Diagnosis Admission Date May 24, 2022 at 10:46 Medical Diagnosis: SWB, COVID, UTI, debility Onset Date: May 24, 2022 Therapy Diagnosis Therapy Diagnosis: decreased ADL status Referral Physician: Familia Referral Reason: Evaluation/Treatment Medical History Pertinent Medical History: CVA, DM, HTN, Hypothroidism Additional Medical History CVA, HTN, DM, hypothyroidism Current History ED with R side weakness and multiple falls. Found to have COVID-19 Social History Home: Single Level Current Living Status: Other Family Entry Into Home: Stairs Without Railing Steps Into Home: 3 ADL-Prior Level of Function SCALE: Activities may be completed with or without assistive devices. 6-Blovmdpfzw-flyynpo completes the activity by him/herself with no assistance from a helper. 5-Set-up or Clean-up Assistance-helper sets up or cleans up; patient completes activity. Startex assists only prior to or following the activity. 4-Supervision or Touching Assistance-helper provides verbal cues and/or touching/steadying and/or contact guard assistance as patient completes activity. Assistance may be provided throughout the activity or intermittently. 3-Partial/Moderate Assistance-helper does LESS THAN HALF the effort. Startex lifts, holds or supports trunk or limbs, but provides less than half the effort. 2-Substantial/Maximal Assistance-helper does MORE THAN HALF the effort. Startex lifts or holds trunk or limbs and provides more than half the effort. 1-Zdnqidxfu-eyddgc does ALL the effort. Patient does none of the effort to complete the activity. Or, the assistance of 2 or more helpers is required for the patient to complete the activity. If activity was not attempted, code reason: 7-Patient Refused. 9-Not Applicable-not attempted and the patient did not perform the activity before the current illness, exacerbation or injury. 10-Not Attempted due to Environmental Limitations-(lack of equipment, weather restraints, etc.). 88-Not Attempted due to Medical Conditions or Safety Concerns. ADL PLOF Comments Pt reports living with her son, and was independent with ADLs and functional mobility, accuracy of information unknown. Self Care: Unknown Functional Cognition: Dependent DME/Equipment: Bath Bench OT Current Status Subjective Pt in bed, agreeable to OT evaluation/tx Mental Status/Objective Patient Orientation: Person, Place, Situation Current Hand Dominance: Left Upper Extremity ROM WFL, BUE shoulder flexion to approx 100 degrees Upper Extremity Strength grossly 3/5 BUEs ADL-Treatment Eating (QC): 4 (Pt requires SBA with task) Oral Hygiene (QC): 3 (Per clincial judgment) Shower/Bathe Self (QC): 3 (Pt able to wash UEs and periarea, assist with LEs and buttocks.) Upper Body Dressing (QC): 3 (Min A changing hospital gown) Lower Body Dressing (QC): 2 (Per clincial judgment, max A overall with task.) On/Off Footwear (QC): 2 (Max A doffing/donning gripper socks.) Toileting Hygiene (QC): 2 (Pt able to wash periarea.) Other Treatments Pt in bed, agreeable to OT evaluation, then OT/PT cotreat due to skill of 2 clinicians required which a rehab nurse could not perform in order to coordinate UE/LEs, decrease fall risk, and due to pt's limitations in strength, mobility, transfers and activity tolerance. OT focused on UE placement, cues for safety and sequencing and ADLs. PT focused on LE placement, transfers/mobility. Pt completed sponge bath and dressing at bed level, transferred supine to sit EOB. Pt attempted footwear but unable to successfully doff gripper socks. Pt stood at FWW, mod A sit to stand transfer, then pt used FWW to perform functional mobility around her room, assistance with guiding walker, then to recliner. In order to increase BUE strength and activity tolerance, pt completed x10 reps BUE of the following: shoulder flexion and front punch. Post tx, pt in recliner, call light in reach and all needs met, chair alarm activated. Min A with rolling, sit to/from lying, mod A sit to/from stand, min A bed/chair transfer. Education OT Patient Education: Correct positioning, Energy conservation, Modified ADL techniques, Progress toward Goal/Update tx plan, Purpose of tx/functional activities, Rehab process Teaching Recipient: Patient Teaching Methods: Discussion Response to Teaching: Verbalize Understanding OT Group Home Goals Elementary Vocal Music Teacher Goals Time Frame: Jun 09, 2022 Eating (QC): 5 Oral Hygiene (QC): 5 Toileting Hygiene (QC): 4 Shower/Bathe Self (QC): 4 Upper Body Dressing (QC): 5 Lower Body Dressing (QC): 4 On/Off Footwear (QC): 4 Additional Goals: 1-Demonstrate ADL Tasks, 2-Verbalize Understanding, 3- ImproveStrength/Nerissa 1=Demonstrate adherence to instructed precautions during ADL tasks. 2=Patient will verbalize/demonstrate understanding of assistive devic es/modifications for ADL. 3=Patient will improve strength/tolerance for activity to enable patient to perform ADL's. OT Education/Plan Problem List/Assessment Assessment: Decreased Activ Tolerance, Decreased Safety Aware, Decreased UE Strength, Impaired Bed Mobility, Impaired Funct Balance, Impaired I ADL's, Impaired Self-Care Skills, Restricted Funct UE ROM Discharge Recommendations Plan/Recommendations: Continue POC Treatment Plan/Plan of Care Patient would benefit from OT for education, treatment and training to promote independence in ADL's, mobility, safety and/or upper extremity function for ADL's. Plan of Care: ADL Retraining, Functional Mobility, UE Funct Exercise/Act Treatment Duration: Jun 09, 2022 Frequency: 5 times per week Estimated Hrs Per Day: .25 hour per day Rehab Potential: Guarded Time/GCodes Start Time: 10:50 Stop Time: 11:25 Total Time Billed (hr/min): 25 Billed Treatment Time 4081-1118 OT eval, 0920-4363 PT eval (not billed), [id number] cotreat 1, EVM (10'), ADL (15') ARACELI WORKMAN OT May 24, 2022 11:33
[2022-05-24] MEDS: NIRMATRELVIR/RITONAVIR (PAXLOVID) TABLET PO SCH ×2 (11:44→21:01)
--- NOTE | 2022-05-24 12:26 | ST Dysphagia Evaluation ---
Speech Evaluation-General Medical Diagnosis TIA versus Stroke, COVID 19 Onset Date: May 18, 2022 Therapy Diagnosis Therapy Diagnosis: Oral Dysphagia Precautions Precautions: Fall, Pressure Ulcer, Aspiration Precautions/Isolations: Airborne Isolation, Aspiration, Fall Prevention, Pressure Ulcer Referral Referring Physician: Dr. Barbosa Reason for Referral: Evaluation/Treatment Medical History Pertinent Medical History: CVA, DM, HTN, Hypothroidism Current History The patient is a 77 year-old female with a past medical history of CVA, DM, HTN, and hypothyroidism, who presented to the ED with right sided weakness and multiple falls. The patient was found to have COVID 19 upon admission. Reviewed History: Yes Social History Current Living Status: Other Family Speech PLF/Current-Dysphagia Prior Level of Function The patient was unable to provide prior level of function information regarding diet consistency level prior to admission. Throughout the patient's acute care, the patient was advanced from a dysphagia one consistency diet with nectar-thick liquids to a dysphagia three consistency diet with thin liquids. Subjective The patient was seated upright in her recliner, awake and alert upon entrance to her room by the clinician. The patient greeted the clinician appropriately and was agreeable to participation in the clinical bedside swallowing evaluation. Cognitive Status Patient Orientation: Confused Oral Motor Skills Dentition: Natural Current Food Consistancy: Mechanical Soft, Thin Liquids Ability to Follow Directions: Fair Oral Expression Ability: Moderate Impairment Voice Voice Phonatory-Based Quality: Breathy, Harsh Voice Pitch: Normal Voice Loudness: Normal Face Facial Symmetry: Symmetrical (Grossly symmetrical at rest.) Oral-Facial Assessment Oral-Facial Dentition: Normal Labial Seal Description: Normal Smile: Normal Puff Cheeks: Normal Lingual Protrusion: Normal Lingual ROM: Normal Lingual Strength: Normal Volitional Dry Swallow: Yes Voluntary Cough: Yes Can Clear Throat Volitionally: Yes Productive Cough: Yes Productive Throat Clear: Yes Dysphagia Evaluation Consistencies Presented: Regular, Thin Liquid, Pureed The patient displayed prolonged mastication with the solid consistency. No additional oral dysphagia symptoms were present throughout the evaluation. The patient does not display pharyngeal impairments throughout the evaluation. Dietary Recommendations: Mechanical Soft (Dysphagia three consistency diet.) Liquid Recommendations: Thin Recommendations: - Dysphagia three consistency diet with thin liquids, as tolerated. - Fully upright and alert for P.O. intake. - Small, single bites and sips. - Monitor for s/s of suspected aspiration with P.O. intake. If demonstrated, contact speech pathology. The results and recommendations were discussed with the patient immediately following completion of the evaluation. Dysphagia Evaluation Summary The patient demonstrated oral dysphagia characterized by prolonged mastication of solid consistencies. Speech Short Term Goals Short Term Goals Short Term Goals 1. The patient will display safe swallowing strategies with 90% accuracy and mild clinician verbal cueing. Time Frame-STG: Three Days. Speech Alf Goals Radio Producer Goals 1. The patient will tolerate the least restrictive diet consistency without s/s of suspected aspiration. Time Frame: One Week. Speech-Plan Treatment Plan Speech Therapy Treatment Plan: Continue Plan of Care Frequency: 1 time per week Estimated Hrs Per Day: .25 hour per day Rehab Potential: Fair Safety Risks/Education Teaching Recipient: Patient Teaching Methods: Discussion Response to Teaching: Reinforcement Needed Education Topics Provided: Results, Recommendations, Plan of Care Time Speech Therapy Time In: 11:48 Speech Therapy Time Out: 11:56 Total Billed Time: 8 Billed Treatment Time 1 HALLIE CHO May 24, 2022 12:26
--- NOTE | 2022-05-24 12:26 | ST Cognitive Linguistic Eval ---
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 Barbosa Reason for Referral: Evaluation/Treatment Medical History Pertinent Medical History: CVA, DM, HTN, Hypothroidism Current History The patient is a 77 year-old female with a past medical history of CVA, DM, HTN, and hypothyroidism, who presented to the ED with right sided weakness and multiple falls. The patient was found to have COVID 19 upon admission. Reviewed History: Yes Social History Current Living Status: Other Family Speech PLF-Current Status Prior Level of Function The patient denied prior challenges with her speech, language or cognition, however, the patient does appear to display intermittent confusion throughout informal conversation. Subjective The patient was seated upright in her recliner, awake and alert upon entrance to her room by the clinician. The patient greeted the clinician appropriately and was agreeable to participation in the cognitive linguistic assessment. Language Eval: Auditory Comprehends Simple Yes/No Ques: Functional Indent/Objects Multiple Delong: Functional Follows 1-Step Commands: Functional Follows General Conversations: Mild (Intermittent repetition required from the clinician.) Language Eval: Verbal Language Completes Spontaneous Greeting: Functional Produces Auto, Serial Info: Functional Imitates Simple Words/Phrases: Functional Word Finding: Moderate Requests Basic Needs: Functional States Basic Personal Info: Functional Cognitive Patient Orientation The patient was independently oriented to self, location, month, day of the week, date and year. Objective Cognitive Domain Attention: Moderate Memory: Mild (Mild to moderate.) Problem Solving: Moderate Composite Severity Rating: Mild (Mild to Moderate.) Objective Oral Motor/Speech Production The patient does not display dysarthria or apraxia of speech at this time. The patient does display slightly reduced intelligibility secondary to reduced articulatory precision and effort ("mumbling"). Impression The patient consistently displays a flat affect throughout communication. At this time, the patient displays a mild to moderate cognitive linguistic impairment in the areas of expressive language, attention, memory, and problem solving. The patient reports she is currently at baseline function. Speech Patient Assess Expression of Ideas/Wants: Exhibits (3) Understanding Verbal Content: Usually Understands (3) Brief Interview-Mental Status: Yes Repetition of Three Words: Three (3) Temporal Orientation: Year: Correct (3) Temporal Orientation: Month: Accurate within 5 days(2) Temporal Orientation: Day: Correct (1) Recall : Wear to say "Sock": Yes,after cueing (1) Recall : Color: Yes, after cueing (1) Recall : Bed: Yes,after cueing (1) Memory/Recall Ability: That he or she is in a hsp/hsp unit Speech Short Term Goals Short Term Goals Short Term Goals 1. The patient will demonstrate increased generative naming skills with mild clinician cueing. Time Frame-STG: Three Days Speech Manager Order Goals Manager Order Goals 1. The patient will demonstrate improved expressive language skills for safe discharge to the least restrictive environment. Time Frame: Five Days. Speech-Plan Treatment Plan Speech Therapy Treatment Plan: Continue Plan of Care Treatment Duration: May 27, 2022 Frequency: 1 time per week Estimated Hrs Per Day: .25 hour per day Rehab Potential: Guarded Safety Risks/Education Teaching Recipient: Patient Teaching Methods: Discussion Response to Teaching: Reinforcement Needed Education Topics Provided: Results, Recommendations, Plan of Care Time Speech Therapy Time In: 11:56 Speech Therapy Time Out: 12:04 Total Billed Time: 8 Billed Treatment Time 1, HALLIE VILLALTA May 24, 2022 12:26
[2022-05-24] MEDS: inSUlin ASPART (NovoLOG) 1 UNIT/0.01 ML (CHARGE PER UNIT) SC SCH ×3 (13:22→21:01)
[2022-05-24] MEDS: CATHETER FLUSH 10 ML SYR IVP SCH ×2 (14:33→21:02)
[2022-05-24] MEDS: MEROPENEM 500 MG in NS (IVPB) 100 ML IV SCH ×2 (17:46→23:56)
[2022-05-24] MEDS: ENOXAPARIN 40 MG/0.4 ML (LOVENOX) SYR SC SCH (17:48)
[2022-05-24 19:40] VITALS: BP_SYST 147; BP_SYST 160; BP_DIAS 70; BP_DIAS 73
[2022-05-24] MEDS: risperiDONE 0.25 MG (RisperDAL) TAB PO SCH (21:01)
[2022-05-25] MEDS: inSUlin ASPART (NovoLOG) 1 UNIT/0.01 ML (CHARGE PER UNIT) SC SCH ×4 (06:06→20:42)
[2022-05-25] MEDS: CATHETER FLUSH 10 ML SYR IVP SCH ×3 (06:07→20:39)
[2022-05-25 08:06] VITALS: BP 177/80
[2022-05-25] MEDS: MEROPENEM 500 MG in NS (IVPB) 100 ML IV SCH ×3 (08:57→23:51)
[2022-05-25] MEDS: DOCUSATE SODIUM 100 MG (COLACE) CAP PO SCH (08:57)
[2022-05-25] MEDS: amLODIPine 5 MG (NORVASC) TAB PO SCH (08:58)
[2022-05-25] MEDS: CLOPIDOGREL 75 MG (PLAVIX) TABLET PO SCH (08:58)
[2022-05-25] MEDS: risperiDONE 0.25 MG (RisperDAL) TAB PO SCH ×2 (08:59→20:37)
--- NOTE | 2022-05-25 10:09 | Physical Therapy Daily Note ---
PT Daily Note-Current Subjective Patient in bed pre tx, agrees to PT, has no complaints of pain. Appearance Patient in recliner post tx with nurse call, phone, tray, all needs met, chair alarm on. Mental Status Patient Orientation: Person, Confused Attachments: IV Transfers SCALE: Activities may be completed with or without assistive devices. 4-Hynjnwybpf-dvkjnnl completes the activity by him/herself with no assistance from a helper. 5-Set-up or Clean-up Assistance-helper sets up or cleans up; patient completes activity. [place] assists only prior to or following the activity. 4-Supervision or Touching Assistance-helper provides verbal cues and/or touching/steadying and/or contact guard assistance as patient completes activity. Assistance may be provided throughout the activity or intermittently. 3-Partial/Moderate Assistance-helper does LESS THAN HALF the effort. [place] lifts, holds or supports trunk or limbs, but provides less than half the effort. 2-Substantial/Maximal Assistance-helper does MORE THAN HALF the effort. [place] lifts or holds trunk or limbs and provides more than half the effort. 6-Cfaxloeeg-nlqwrm does ALL the effort. Patient does none of the effort to complete the activity. Or, the assistance of 2 or more helpers is required for the patient to complete the activity. If activity was not attempted, code reason: 7-Patient Refused. 9-Not Applicable-not attempted and the patient did not perform the activity before the current illness, exacerbation or injury. 10-Not Attempted due to Environmental Limitations-(lack of equipment, weather restraints, etc.). 88-Not Attempted due to Medical Conditions or Safety Concerns. Roll Left & Right (QC): 3 Lying to Sitting/Side of Bed(Q: 3 Sit to Stand (QC): 3 Chair/Dtc-zu-Lynuz Xfer(QC): 3 Patient is able to take out her purewick on her own. Min assist for supine to sit and to scoot to the edge of the bed. Min assist to stand, patient is ret ropulsive upon standing. Gait Training Distance: 20' Walk 10 feet (QC): 3 Gait Persons Needed: 1 Gait Assistive Device: FWW Patient needs assist guiding walker and she is unsteady, very slow ambulation, shuffling gait. Exercises Seated Therapy Exercises: Ankle pumps, Long arc quads Seated Reps: 20 Treatments bed mobility and transfers, ambulation, LE ROM Assessment Current Status: Poor Progress no change in mobility PT Die Repairer Trimmer Dies Goals Die Repairer Trimmer Dies Goals PT Skilled Nursing Goals Time Frame: May 31, 2022 Roll Left & Right (QC): 4 (SBA) Sit to Lying (QC): 4 (SBA) Lying-Sitting on Side/Bed(QC): 4 (SBA) Sit to Stand (QC): 4 (CGA) Chair/Mfe-ht-Vjlwy Xfer(QC): 4 (CGA) Toilet Transfer (QC): 4 Car Transfer (QC): 10 Does the Patient Walk: Yes Walk 10 feet (QC): 4 (CGA) Walk 50ft with 2 Turns (QC): 4 (CGA) Walk 150 ft (QC): 4 (CGA) Walking 10ft on Uneven Surface: 10 1 Step (curb) (QC): 88 4 Steps (QC): 88 12 Steps (QC): 88 Picking up an Object (QC): 4 (CGA) Wheel 50 feet with 2 turns (QC: 10 Wheel 150 feet: 10 PT Plan Problem List Problem List: Activity Tolerance, Functional Strength, Safety, Balance, Gait, Transfer, Bed Mobility, ROM Treatment/Plan Treatment Plan: Continue Plan of Care Treatment Plan: Bed Mobility, Education, Functional Activity Nerissa, Functional Strength, Gait, Safety, Therapeutic Exercise, Transfers Treatment Duration: May 31, 2022 Frequency: 6 times per week Estimated Hrs Per Day: .25 hour per day Patient and/or Family Agrees t: Yes Safety Risks/Education Patient Education: Gait Training, Transfer Techniques, Correct Positioning, Safety Issues Teaching Recipient: Patient Teaching Methods: Demonstration, Discussion Response to Teaching: Reinforcement Needed Time/GCodes Time In: 45 Time Out: 1000 Total Billed Treatment Time: 15 Total Billed Treatment 1 visit FA DIDI MCARTHUR PT May 25, 2022 10:09
--- NOTE | 2022-05-25 10:49 | Occupational Ther Daily Note ---
OT Current Status-Daily Note Subjective Pt alert, sitting in recliner. Pt agrees to therapy. Pt has flat affect though will answer questions appropriately. Mental Status/Objective Patient Orientation: Person, Confused Attachments: IV ADL-Treatment Pt able to complete grooming and oral care by self after set up. Pt took increased time to complete tasks due to slow methodical movement. After sess ion, pt sitting in recliner with call light/phone in reach. All needs met in room. Therapy Code Descriptions/Definitions Functional Five [place] Measure: 0=Not Assessed/NA 4=Minimal Assistance 1=Total Assistance 5=Supervision or Setup 2=Maximal Assistance 6=Modified [place] 3=Moderate Assistance 7=Complete IndependenceSCALE: Activities may be completed with or without assistive devices. 0-Ciavqrnqfd-mqjntyp completes the activity by him/herself with no assistance from a helper. 5-Set-up or Clean-up Assistance-helper sets up or cleans up; patient completes activity. [place] assists only prior to or following the activity. 4-Supervision or Touching Assistance-helper provides verbal cues and/or touching/steadying and/or contact guard assistance as patient completes activity. Assistance may be provided throughout the activity or intermittently. 3-Partial/Moderate Assistance-helper does LESS THAN HALF the effort. [place]yer lifts, holds or supports trunk or limbs, but provides less than half the effort. 2-Substantial/Maximal Assistance-helper does MORE THAN HALF the effort. [place] lifts or holds trunk or limbs and provides more than half the effort. 2-Vafaiqlst-kkmpjc does ALL the effort. Patient does none of the effort to complete the activity. Or, the assistance of 2 or more helpers is required for the patient to complete the activity. If activity was not attempted, code reason: 7-Patient Refused. 9-Not Applicable-not attempted and the patient did not perform the activity before the current illness, exacerbation or injury. 10-Not Attempted due to Environmental Limitations-(lack of equipment, weather restraints, etc.). 88-Not Attempted due to Medical Conditions or Safety Concerns. Oral Hygiene (QC): 5 OT Respiratory Tech Goals Fpc Goals Time Frame: Jun 09, 2022 Eating (QC): 5 Oral Hygiene (QC): 5 Toileting Hygiene (QC): 4 Shower/Bathe Self (QC): 4 Upper Body Dressing (QC): 5 Lower Body Dressing (QC): 4 On/Off Footwear (QC): 4 Additional Goals: 1-Demonstrate ADL Tasks, 2-Verbalize Understanding, 3- ImproveStrength/Nerissa 1=Demonstrate adherence to instructed precautions during ADL tasks. 2=Patient will verbalize/demonstrate understanding of assistive devices/modific ations for ADL. 3=Patient will improve strength/tolerance for activity to enable patient to perform ADL's. OT Education/Plan Problem List/Assessment Assessment: Decreased Activ Tolerance, Decreased UE Strength, Impaired Coordination Discharge Recommendations Plan/Recommendations: Continue POC Treatment Plan/Plan of Care Patient would benefit from OT for education, treatment and training to promote independence in ADL's, mobility, safety and/or upper extremity function for ADL's. Plan of Care: ADL Retraining, Functional Mobility, UE Funct Exercise/Act Treatment Duration: Jun 09, 2022 Frequency: 5 times per week Estimated Hrs Per Day: .25 hour per day Rehab Potential: Guarded Time/GCodes Start Time: 10:15 Stop Time: 10:32 Total Time Billed (hr/min): 17 Billed Treatment Time 1 visit-ADL 1 (17 min) BISHOP HUANG May 25, 2022 10:49
[2022-05-25] MEDS: ENOXAPARIN 40 MG/0.4 ML (LOVENOX) SYR SC SCH (17:39)
[2022-05-25 19:56] VITALS: BP 161/83
[2022-05-26] MEDS: CATHETER FLUSH 10 ML SYR IVP SCH ×3 (05:54→20:01)
[2022-05-26] MEDS: inSUlin ASPART (NovoLOG) 1 UNIT/0.01 ML (CHARGE PER UNIT) SC SCH ×4 (05:57→20:09)
[2022-05-26 07:58] VITALS: BP 171/81
[2022-05-26] MEDS: risperiDONE 0.25 MG (RisperDAL) TAB PO SCH ×2 (08:16→20:00)
[2022-05-26] MEDS: DOCUSATE SODIUM 100 MG (COLACE) CAP PO SCH (08:16)
[2022-05-26] MEDS: CLOPIDOGREL 75 MG (PLAVIX) TABLET PO SCH (08:16)
[2022-05-26] MEDS: MEROPENEM 500 MG in NS (IVPB) 100 ML IV SCH ×3 (08:16→23:09)
[2022-05-26] MEDS: amLODIPine 5 MG (NORVASC) TAB PO SCH (08:16)
--- NOTE | 2022-05-26 08:30 | Speech Therapy Progress Note ---
Therapy Progress Note The clinician assessed the patient's oropharyngeal swallowing function on 05/23/2022 (inpatient, acute) and 05/24/2022 (inpatient, swing bed). Following each assessment, the patient was upgraded to a dysphagia three consistency with thin liquids (please refer to the assessment for additional recommendations). The clinician provided the results to the patient's RN following the assessment. On this date, the clinician was monitoring the patient's chart for progress and plan of care. At this time, the patient's diet consistency order remains as a dysphagia three consistency diet with nectar-thick liquids. The clinician immediately attempted contact with the patient's RN for upgrade and updated diet consistency. The floor transferred the clinician to the RN and no answer was reached ([id number]). The clinician will continue attempts to reach the RN on this date. Please find the recommendations from the most recent swallow evaluation (05/24/2022) below: Recommendations: - Dysphagia three consistency diet with thin liquids, as tolerated. - Fully upright and alert for P.O. intake. - Small, single bites and sips. - Monitor for s/s of suspected aspiration with P.O. intake. If demonstrated, contact speech pathology. If the patient was not upgraded to thin liquids because she is not tolerating the diet consistency recommended by the clinician (thin liquids), the speech pathologist should be updated for re-evaluation. HALLIE JOVEL May 26, 2022 08:30
--- NOTE | 2022-05-26 11:30 | Occupational Ther Daily Note ---
OT Current Status-Daily Note Subjective Pt alert, lying in bed. Pt is oriented to time, place, situation and date though does demonstrate confusion on initiating functional tasks or new tasks. Pt agrees to therapy. Nrsg in room. ADL-Treatment Pt incontinent of bowel, able to call for assist using call light but stated that she was 'itchy down there' but did not realize she had BM. When asked pt then stated I know when I have to go, but I don't what to do. Pt requires assist to initiate turn and stay on side while assistance to cleanse basil area and buttocks. Max A to don/doff brief and hospital gown. Difficulty with problem solving tasks, initiation of tasks. After session, pt lying in bed with call light/phone in reach. All needs met in room. Therapy Code Descriptions/Definitions Functional [place] Measure: 0=Not Assessed/NA 4=Minimal Assistance 1=Total Assistance 5=Supervision or Setup 2=Maximal Assistance 6=Modified [place] 3=Moderate Assistance 7=Complete IndependenceSCALE: Activities may be completed with or without assistive devices. 1-Xxxwirtolp-nrjqpvp completes the activity by him/herself with no assistance from a helper. 5-Set-up or Clean-up Assistance-helper sets up or cleans up; patient completes activity. [place] assists only prior to or following the activity. 4-Supervision or Touching Assistance-helper provides verbal cues and/or touching/steadying and/or contact guard assistance as patient completes activity. Assistance may be provided throughout the activity or intermittently. 3-Partial/Moderate Assistance-helper does LESS THAN HALF the effort. [place] lifts, holds or supports trunk or limbs, but provides less than half the effort. 2-Substantial/Maximal Assistance-helper does MORE THAN HALF the effort. [place] lifts or holds trunk or limbs and provides more than half the effort. 2-Rjpqexgaa-yzfpxe does ALL the effort. Patient does none of the effort to complete the activity. Or, the assistance of 2 or more helpers is required for the patient to complete the activity. If activity was not attempted, code reason: 7-Patient Refused. 9-Not Applicable-not attempted and the patient did not perform the activity before the current illness, exacerbation or injury. 10-Not Attempted due to Environmental Limitations-(lack of equipment, weather restraints, etc.). 88-Not Attempted due to Medical Conditions or Safety Concerns. Lower Body Dressing (QC): 1 On/Off Footwear: 2 Toileting Hygiene (QC): 1 Toilet Transfer (QC): 1 OT Spark Plug Assembler Goals Spark Plug Assembler Goals Time Frame: Jun 09, 2022 Eating (QC): 5 Oral Hygiene (QC): 5 Toileting Hygiene (QC): 4 Shower/Bathe Self (QC): 4 Upper Body Dressing (QC): 5 Lower Body Dressing (QC): 4 On/Off Footwear (QC): 4 Additional Goals: 1-Demonstrate ADL Tasks, 2-Verbalize Understanding, 3- ImproveStrength/Nerissa 1=Demonstrate adherence to instructed precautions during ADL tasks. 2=Patient will verbalize/demonstrate understanding of assistive devices/modifications for ADL. 3=Patient will improve strength/tolerance for activity to enable patient to perform ADL's. OT Education/Plan Problem List/Assessment Assessment: Decreased Activ Tolerance, Impaired Bed Mobility, Impaired Cognition, Impaired Self-Care Skills Discharge Recommendations Plan/Recommendations: Continue POC Treatment Plan/Plan of Care Patient would benefit from OT for education, treatment and training to promote independence in ADL's, mobility, safety and/or upper extremity function for ADL's. Plan of Care: ADL Retraining, Functional Mobility, UE Funct Exercise/Act Treatment Duration: Jun 09, 2022 Frequency: 5 times per week Estimated Hrs Per Day: .25 hour per day Rehab Potential: Guarded Time/GCodes Start Time: 11:02 Stop Time: 11:25 Total Time Billed (hr/min): 23 Billed Treatment Time 1 visit-ADL 2 (23 min) BISHOP HUANG May 26, 2022 11:30
--- NOTE | 2022-05-26 14:02 | Physical Therapy Daily Note ---
PT Daily Note-Current Subjective Pt reports she would like to get up for a walk. Transfers SCALE: Activities may be completed with or without assistive devices. 5-Mepcubgpxm-cszshon completes the activity by him/herself with no assistance from a helper. 5-Set-up or Clean-up Assistance-helper sets up or cleans up; patient completes activity. [place] assists only prior to or following the activity. 4-Supervision or Touching Assistance-helper provides verbal cues and/or touching/steadying and/or contact guard assistance as patient completes activity. Assistance may be provided throughout the activity or intermittently. 3-Partial/Moderate Assistance-helper does LESS THAN HALF the effort. [place] lifts, holds or supports trunk or limbs, but provides less than half the effort. 2-Substantial/Maximal Assistance-helper does MORE THAN HALF the effort. [place] lifts or holds trunk or limbs and provides more than half the effort. 3-Kfonobbsh-vqztwr does ALL the effort. Patient does none of the effort to complete the activity. Or, the assistance of 2 or more helpers is required for the patient to complete the activity. If activity was not attempted, code reason: 7-Patient Refused. 9-Not Applicable-not attempted and the patient did not perform the activity before the current illness, exacerbation or injury. 10-Not Attempted due to Environmental Limitations-(lack of equipment, weather restraints, etc.). 88-Not Attempted due to Medical Conditions or Safety Concerns. Roll Left & Right (QC): 3 Sit to Lying (QC): 3 Lying to Sitting/Side of Bed(Q: 3 Sit to Stand (QC): 3 Chair/Xoj-ts-Zjuee Xfer(QC): 3 Gait Training Gait Assistive Device: FWW Ambulate 50ft with FWW and Min A for guidance. Step to gait pattern, very slow and shuffled but no loss of balance. Assessment Current Status: Fair Progress Pt required moderate assist to move in bed and come to sitting at the edge of bed. She required assist with her trunk and LEs. Once on her feet she was steady with gait. Ambulation distance improved today as compared to yesterday. Pt will benefit from continued therapy. PT Real Estate Specialist Goals Real Estate Specialist Goals PT Alf Goals Time Frame: May 31, 2022 Roll Left & Right (QC): 4 (SBA) Sit to Lying (QC): 4 (SBA) Lying-Sitting on Side/Bed(QC): 4 (SBA) Sit to Stand (QC): 4 (CGA) Chair/Vjt-ln-Zilsu Xfer(QC): 4 (CGA) Toilet Transfer (QC): 4 Car Transfer (QC): 10 Does the Patient Walk: Yes Walk 10 feet (QC): 4 (CGA) Walk 50ft with 2 Turns (QC): 4 (CGA) Walk 150 ft (QC): 4 (CGA) Walking 10ft on Uneven Surface: 10 1 Step (curb) (QC): 88 4 Steps (QC): 88 12 Steps (QC): 88 Picking up an Object (QC): 4 (CGA) Wheel 50 feet with 2 turns (QC: 10 Wheel 150 feet: 10 PT Plan Treatment/Plan Treatment Plan: Continue Plan of Care Treatment Plan: Bed Mobility, Education, Functional Activity Nerissa, Functional Strength, Gait, Safety, Therapeutic Exercise, Transfers Treatment Duration: May 31, 2022 Frequency: 6 times per week Estimated Hrs Per Day: .25 hour per day Patient and/or Family Agrees t: Yes Time/GCodes Time In: 1305 Time Out: 1330 Total Billed Treatment Time: 25 Total Billed Treatment visit, gait 15min, FA 10 min KAILASH COELHO PT May 26, 2022 14:02
[2022-05-26] MEDS: ENOXAPARIN 40 MG/0.4 ML (LOVENOX) SYR SC SCH (17:52)
[2022-05-26 19:42] VITALS: BP 142/82
[2022-05-27] MEDS: CATHETER FLUSH 10 ML SYR IVP SCH ×3 (05:54→21:54)
[2022-05-27] MEDS: inSUlin ASPART (NovoLOG) 1 UNIT/0.01 ML (CHARGE PER UNIT) SC SCH ×4 (06:10→21:54)
[2022-05-27 07:50] VITALS: BP 168/88
[2022-05-27] MEDS: MEROPENEM 500 MG in NS (IVPB) 100 ML IV SCH (08:50)
[2022-05-27] MEDS: DOCUSATE SODIUM 100 MG (COLACE) CAP PO SCH (08:51)
[2022-05-27] MEDS: risperiDONE 0.25 MG (RisperDAL) TAB PO SCH ×2 (08:51→21:53)
[2022-05-27] MEDS: amLODIPine 5 MG (NORVASC) TAB PO SCH (08:51)
[2022-05-27] MEDS: CLOPIDOGREL 75 MG (PLAVIX) TABLET PO SCH (08:51)
--- NOTE | 2022-05-27 12:16 | Physical Therapy Daily Note ---
PT Daily Note-Current Subjective States that she wants to try to walk. Transfers SCALE: Activities may be completed with or without assistive devices. 2-Ydekoktnuc-tclmxjy completes the activity by him/herself with no assistance from a helper. 5-Set-up or Clean-up Assistance-helper sets up or cleans up; patient completes activity. [place] assists only prior to or following the activity. 4-Supervision or Touching Assistance-helper provides verbal cues and/or touching/steadying and/or contact guard assistance as patient completes activity. Assistance may be provided throughout the activity or intermittently. 3-Partial/Moderate Assistance-helper does LESS THAN HALF the effort. [place] lifts, holds or supports trunk or limbs, but provides less than half the effort. 2-Substantial/Maximal Assistance-helper does MORE THAN HALF the effort. [place] lifts or holds trunk or limbs and provides more than half the effort. 9-Wrjfxqnvn-sjcwxz does ALL the effort. Patient does none of the effort to complete the activity. Or, the assistance of 2 or more helpers is required for the patient to complete the activity. If activity was not attempted, code reason: 7-Patient Refused. 9-Not Applicable-not attempted and the patient did not perform the activity before the current illness, exacerbation or injury. 10-Not Attempted due to Environmental Limitations-(lack of equipment, weather restraints, etc.). 88-Not Attempted due to Medical Conditions or Safety Concerns. Roll Left & Right (QC): 4 Sit to Lying (QC): 4 Lying to Sitting/Side of Bed(Q: 4 Sit to Stand (QC): 4 Gait Training Distance: 10' Walk 10 feet (QC): 4 Gait Persons Needed: 1 Gait Assistive Device: FWW Assessment Current Status: Good Progress Patient had difficulty with sitting balance. PT Penitentiary Goals Penitentiary Goals PT Penitentiary Goals Time Frame: May 31, 2022 Roll Left & Right (QC): 4 (SBA) Sit to Lying (QC): 4 (SBA) Lying-Sitting on Side/Bed(QC): 4 (SBA) Sit to Stand (QC): 4 (CGA) Chair/Jlm-dp-[place] Xfer(QC): 4 (CGA) Toilet Transfer (QC): 4 Car Transfer (QC): 10 Does the Patient Walk: Yes Walk 10 feet (QC): 4 (CGA) Walk 50ft with 2 Turns (QC): 4 (CGA) Walk 150 ft (QC): 4 (CGA) Walking 10ft on Uneven Surface: 10 1 Step (curb) (QC): 88 4 Steps (QC): 88 12 Steps (QC): 88 Picking up an Object (QC): 4 (CGA) Wheel 50 feet with 2 turns (QC: 10 Wheel 150 feet: 10 PT Plan Treatment/Plan Treatment Plan: Continue Plan of Care Treatment Plan: Bed Mobility, Education, Functional Activity Nerissa, Functional Strength, Gait, Safety, Therapeutic Exercise, Transfers Treatment Duration: May 31, 2022 Frequency: 6 times per week Estimated Hrs Per Day: .25 hour per day Patient and/or Family Agrees t: Yes Time/GCodes Time In: 1200 Time Out: 1215 Total Billed Treatment Time: 15 Total Billed Treatment 1, GT x 15 DINA HARRIS PT May 27, 2022 12:16
[2022-05-27 16:15] VITALS: BP 187/82
[2022-05-27] MEDS: ENOXAPARIN 40 MG/0.4 ML (LOVENOX) SYR SC SCH (16:33)
[2022-05-27 16:51] VITALS: BP 166/84
[2022-05-27 20:00] VITALS: BP 160/85
[2022-05-28] MEDS: CATHETER FLUSH 10 ML SYR IVP SCH ×3 (05:49→20:13)
[2022-05-28] MEDS: inSUlin ASPART (NovoLOG) 1 UNIT/0.01 ML (CHARGE PER UNIT) SC SCH ×4 (05:49→20:13)
[2022-05-28 07:43] VITALS: BP 185/84
[2022-05-28] MEDS: CLOPIDOGREL 75 MG (PLAVIX) TABLET PO SCH (09:32)
[2022-05-28] MEDS: risperiDONE 0.25 MG (RisperDAL) TAB PO SCH ×2 (09:32→20:12)
[2022-05-28] MEDS: amLODIPine 5 MG (NORVASC) TAB PO SCH (09:32)
[2022-05-28] MEDS: DOCUSATE SODIUM 100 MG (COLACE) CAP PO SCH (09:32)
[2022-05-28] MEDS: ENOXAPARIN 40 MG/0.4 ML (LOVENOX) SYR SC SCH (17:24)
[2022-05-28 19:43] VITALS: BP 163/65
[2022-05-29] MEDS: CATHETER FLUSH 10 ML SYR IVP SCH (05:57)
[2022-05-29] MEDS: inSUlin ASPART (NovoLOG) 1 UNIT/0.01 ML (CHARGE PER UNIT) SC SCH ×2 (05:57→10:55)
[2022-05-29 08:33] VITALS: BP 138/83
[2022-05-29] MEDS: amLODIPine 5 MG (NORVASC) TAB PO SCH (09:06)
[2022-05-29] MEDS: DOCUSATE SODIUM 100 MG (COLACE) CAP PO SCH (09:06)
[2022-05-29] MEDS: risperiDONE 0.25 MG (RisperDAL) TAB PO SCH (09:06)
[2022-05-29] MEDS: CLOPIDOGREL 75 MG (PLAVIX) TABLET PO SCH (09:06)
--- NOTE | 2022-05-29 10:12 | Therapy Team Discharge Summary ---
Therapy Discharge Summary Discharge Recommendations Date of Discharge Physical Therapy Per report and SW, patient will dismiss to home on this with family. Patient continues to require CGA to SBA with all mobility for safety. Patient is more alert and oriented episodically. Patient to receive home health upon dismissal to home. Goals address but not all attained. Roll Left to Right (QC): 4 Sit to Lying (QC): 4 Lying to Sitting/Side of Bed(Q: 4 Sit to Stand (QC): 4 Chair/Tjw-cm-Gjplr Xfer(QC): 3 Toilet Transfer (QC): 9 Car Transfer (QC): 10 Does the Patient Walk: Yes Mode of Locomotion: Walk Anticipated Mode of Locomotion: Walk Walk 10 feet (QC): 4 Walk 50 ft with 2 Turns(QC): 3 Walk 150 ft (QC): 88 Walking 10ft on uneven surface: 10 Distance: 10' Gait Assistive Device: FWW Wheel 50 ft with 2 turns (QC): 10 Wheel 150 ft (QC): 10 1 Step (curb) (QC): 88 4 Steps (QC): 88 12 Steps (QC): 88 Balance Sitting Static: Fair Balance Sitting Dynamic: Fair Balance-Standing Static: Poor Picking up an Object (QC): 88 Occupational Therapy Decreased Activ Tolerance, Impaired Bed Mobility, Impaired Cognition, Impaired Self-Care Skills Eating (QC): 4 (Pt requires SBA with task) Oral Hygiene (QC): 5 Shower/Bathe Self (QC): 3 (Pt able to wash UEs and periarea, assist with LEs and buttocks.) Upper Body Dressing (QC): 3 (Min A changing hospital gown) Lower Body Dressing (QC): 1 On/Off Footwear (QC): 2 Toileting Hygiene (QC): 1 PT Usp Goals [place]url[place] Roll Coverer Goals PT [place] Roll Coverer Goals Time Frame: May 31, 2022 Roll Left to Right (QC): 4 (SBA) Sit to Lying (QC): 4 (SBA) Lying-Sitting on Side/Bed(QC): 4 (SBA) Sit to Stand (QC): 4 (CGA) Chair/Aeo-lt-Khycx Xfer(QC): 4 (CGA) Car Transfer (QC): 10 Does the Patient Walk: Yes Walk 10 feet (QC): 4 (CGA) Walk 10ft-Uneven Surface(QC): 10 Walk 50ft with 2 Turns (QC): 4 (CGA) Walk 150 ft (QC): 4 (CGA) Wheel 50 feet with 2 turns (QC: 10 1 Step (curb) (QC): 88 4 Steps (QC): 88 12 Steps (QC): 88 Picking up an Object (QC): 4 (CGA) OT Usp Goals [place]url[place] Roll Coverer Goals Time Frame: Jun 09, 2022 Eating (QC): 5 Oral Hygiene (QC): 5 Shower/Bathe Self (QC): 4 Upper Body Dressing (QC): 5 Lower Body Dressing (QC): 4 On/Off Footwear (QC): 4 Toileting Hygiene (QC): 4 Toilet/Commode Transfer (QC): 4 Additional Goals: 1-Demonstrate ADL Tasks, 2-Verbalize Understanding, 3- ImproveStrength/Nerissa 1=Demonstrate adherence to instructed precautions during ADL tasks. 2=Patient will verbalize/demonstrate understanding of assistive devices/modifications for ADL. 3=Patient will improve strength/tolerance for activity to enable patient to perform ADL's. Speech Usp Goals [place] Roll Coverer Goals 1. The patient will demonstrate improved expressive language skills for safe discharge to the least restrictive environment. Time Frame: Five Days. EDMOND DRAKE PT May 29, 2022 10:12
[2022-05-29] MEDS ORDERED: AMLO-250 PO (14:10)
[2022-05-29] MEDS ORDERED: CLOP75TA28 PO (14:10)
--- NOTE | 2022-05-29 14:16 | D/C HH Face to Face Order ---
D/C Face to Face Orders Reconcile Patient Problems Problems Reviewed?: Yes Instructions for Patient [facility] [place] [facility], Patient Instructions/FollowUp: Take medications as prescribed. Follow up with your PCP. Return with worsening symptoms. Physician to follow Patient: Villegas Discharge Diet for Home: Low Sodium Diet Patient Data-Allergies,Ht & Wt Patient Allergies: Coded Allergies: Penicillins (Unverified Allergy, Unknown, RASH, SOB, 01/03/22) Sulfa (Sulfonamide Antibiotics) (Unverified Allergy, Unknown, SWELLING, 01/03/22) Home Health Need/Face to Face Date of Face to Face: May 29, 2022 Clinical Findings: Generalized weakness and fatigue, Instability, Muscle weakness, Unsteady gait I have seen Pt thxh-aa-mwie: Yes Discharged To: Home Diagnosis/Conditions: Stroke COVID-19 HTN T2DM Problems/Diagnosis/Condition: (1) Ischemic stroke of frontal lobe (2) COVID-19 virus infection (3) Esophageal thickening (4) UTI (urinary tract infection) Patient is Homebound due to: [place] fall risk due to instabilty, Muscle weakness Homebound Status Due to the above stated illness, injury or surgical procedure (medical cond ition or diagnosis) and associated clinical findings, the patient is homebound because of his/her inability to leave home except with aid of a supportive device and/or person AND leaving the home requires a considerable and taxing effort or is medically contraindicated. Pt req the following assistanc: Aid of another person Home Health Nursing Orders Home Health Services Order: Nursing Services, [facility] Supervisor-Evaluate & Treat, Physical Therapy-Evaluate & Treat Therapy Orders Therapy Orders: OT (must have SN or PT order), Physical Therapy Therapy Specific Orders: Eval assistive deivces, Teach enviro modifications/safety, Gait training, Increase strength/endurance Certify Stmt I certify that this patient is under my care and that I, a nurse practitioner or a physician; a insurance administrative assistant working with me, had a face to face encounter that - meets the physician face to face encounter requirements with this patient as dated. KIM MEI MD May 29, 2022 14:16
--- NOTE | 2022-05-29 14:22 | Occ Therapy Progress Note ---
Therapy Progress Note OT tx attempted, but pt adamantly declined OT services at this time. Pt reports she is discharging from hospital after 3:00 pm after her daughter gets off work. OT informed pt about purpose/benefit of OT, encouraging pt to perform ADLs in order to prepare for her daughters arrival, but pt continues to decline tx. OT will attempt tx tomorrow if pt still admitted. 1, refusal [id number] ARACELI WORKMAN OT May 29, 2022 14:22
[2022-05-29 15:11] VITALS: BP 138/83
--- NOTE | 2022-05-29 23:11 | Discharge Summary ---
Discharge Summary Hospital Course Hospital Course Date of Admission: May 24, 2022 at 10:46 Admission Diagnosis : Family Physician/Provider: Kelby Villegas MD Date of Discharge: 05/29/22 Discharge Diagnosis: [ ] Hospital Course: [ ] Labs and Pending Lab Test: Laboratory Tests 05/29/22 05:55: Glucometer 219H 05/29/22 10:53: Glucometer 249H Home Meds Active Amlodipine Besylate 5 Mg Tablet 5 Mg PO DAILY 30 Days Clopidogrel (Clopidogrel Bisulfate) 75 Mg Tablet 75 Mg PO DAILY 30 Days Reported Tylenol (Acetaminophen) 325 Mg Tablet 650 Mg PO Q6H PRN Risperidone 0.5 Mg Tablet 0.5 Mg PO BID Diltiazem ER (Diltiazem HCl) 240 Mg Capsule.er 240 Mg PO DAILY Carvedilol 25 Mg Tablet 25 Mg PO BID Levothyroxine Sodium 50 Mcg Tablet 50 Mcg PO DAILY Metformin HCl ER (Metformin HCl) 750 Mg Tab.er.24h 750 Mg PO BID Atorvastatin Calcium 40 Mg Tablet 40 Mg PO HS Glipizide ER (Glipizide) 2.5 Mg Tab 2.5 Mg PO DAILY Assessment/Pt Instructions See instructions Discharge Planning: >30 minutes discharge planning Discharge Instructions Discharge Diet: No Restrictions Activity as Tolerated: Yes Discharge Physical Examination Vital Signs Vital Signs Date Time Temp Pulse Resp B/P (MAP) Pulse Ox O2 Delivery O2 Flow Rate FiO2 05/29/22 15:11 36.5 74 18 138/83 99 Room Air Allergies: Coded Allergies: Penicillins (Unverified Allergy, Unknown, RASH, SOB, 01/03/22) Sulfa (Sulfonamide Antibiotics) (Unverified Allergy, Unknown, SWELLING, 01/03/22) Discharge Summary Date of Admission May 24, 2022 at 10:46 Date of Discharge May 29, 2022 at 15:14 Discharge Date: May 29, 2022 Discharge Time: 15:14 KIM MEI MD May 29, 2022 23:11
--- NOTE | 2022-05-30 11:38 | Therapy Team Discharge Summary ---
Therapy Discharge Summary Discharge Recommendations Date of Discharge May 29, 2022 at 15:14 Physical Therapy Roll Left to Right (QC): 4 Sit to Lying (QC): 4 Lying to Sitting/Side of Bed(Q: 4 Sit to Stand (QC): 4 Chair/Tsn-bl-Ticii Xfer(QC): 3 Toilet Transfer (QC): 9 Car Transfer (QC): 10 Does the Patient Walk: Yes Mode of Locomotion: Walk Anticipated Mode of Locomotion: Walk Walk 10 feet (QC): 4 Walk 50 ft with 2 Turns(QC): 3 Walk 150 ft (QC): 88 Walking 10ft on uneven surface: 10 Distance: 10' Gait Assistive Device: FWW Wheel 50 ft with 2 turns (QC): 10 Wheel 150 ft (QC): 10 1 Step (curb) (QC): 88 4 Steps (QC): 88 12 Steps (QC): 88 Balance Sitting Static: Fair Balance Sitting Dynamic: Fair Balance-Standing Static: Poor Picking up an Object (QC): 88 Occupational Therapy Pt admitted to [facility] with UTI and debility. At [facility], pt was independent with ADLs and functional mobility. Upon initial evaluation, pt required SBA with eating, min A oral care and showering, min A with UE dressing, max A lower body dressing, max A footwear and max A toileting. OT tx focused on increasing BUE strength and activity tolerance, and increasing safety and independence with ADLs and functional mobility. Pt made progress towards goals, but did not attain all goals. Pt discharged from facility, d/c from OT. Decreased Activ Tolerance, Impaired Bed Mobility, Impaired Cognition, Impaired Self-Care Skills Eating (QC): 4 (Pt requires SBA with task) Oral Hygiene (QC): 5 Shower/Bathe Self (QC): 3 (Pt able to wash UEs and periarea, assist with LEs and buttocks.) Upper Body Dressing (QC): 3 (Min A changing hospital gown) Lower Body Dressing (QC): 1 On/Off Footwear (QC): 2 Toileting Hygiene (QC): 1 PT Employee Communications Specialist Goals Employee Communications Specialist Goals PT Assisted Goals Time Frame: May 31, 2022 Roll Left to Right (QC): 4 (SBA) Sit to Lying (QC): 4 (SBA) Lying-Sitting on Side/Bed(QC): 4 (SBA) Sit to Stand (QC): 4 (CGA) Chair/Lqn-gs-Hptkc Xfer(QC): 4 (CGA) Car Transfer (QC): 10 Does the Patient Walk: Yes Walk 10 feet (QC): 4 (CGA) Walk 10ft-Uneven Surface(QC): 10 Walk 50ft with 2 Turns (QC): 4 (CGA) Walk 150 ft (QC): 4 (CGA) Wheel 50 feet with 2 turns (QC: 10 1 Step (curb) (QC): 88 4 Steps (QC): 88 12 Steps (QC): 88 Picking up an Object (QC): 4 (CGA) OT Assisted Goals Employee Communications Specialist Goals Time Frame: Jun 09, 2022 Eating (QC): 5 Oral Hygiene (QC): 5 Shower/Bathe Self (QC): 4 Upper Body Dressing (QC): 5 Lower Body Dressing (QC): 4 On/Off Footwear (QC): 4 Toileting Hygiene (QC): 4 Toilet/Commode Transfer (QC): 4 Additional Goals: 1-Demonstrate ADL Tasks, 2-Verbalize Understanding, 3- ImproveStrength/Nerissa 1=Demonstrate adherence to instructed precautions during ADL tasks. 2=Patient will verbalize/demonstrate understanding of assistive devices/modifications for ADL. 3=Patient will improve strength/tolerance for activity to enable patient to perform ADL's. Speech Employee Communications Specialist Goals Employee Communications Specialist Goals 1. The patient will demonstrate improved expressive language skills for safe discharge to the least restrictive environment. Time Frame: Five Days. ARACELI WORKMAN OT May 30, 2022 11:38
== END 2022-05-29 15:14 | disposition home health service (06) | DRG 690 ==
LOC: 4TH 10:46
PROVIDERS: ADMIT Family Medicine; ATTEND Internal Medicine
DX: N39.0 Urinary tract infection, site not specified (principal); Z16.12 Extended spectrum beta lactamase (ESBL) resistance; B96.20 Unspecified Escherichia coli [E. coli] as the cause of diseases classified elsewhere; I10 Essential (primary) hypertension; E11.9 Type 2 diabetes mellitus without complications; K22.9 Disease of esophagus, unspecified; E78.00 Pure hypercholesterolemia, unspecified; E03.9 Hypothyroidism, unspecified; H54.7 Unspecified visual loss; Z79.02 Long term (current) use of antithrombotics/antiplatelets; Z86.16 Personal history of COVID-19; Z86.73 Personal history of transient ischemic attack (TIA), and cerebral infarction without residual deficits; Z88.0 Allergy status to penicillin; Z79.84 Long term (current) use of oral hypoglycemic drugs
CPT/HCPCS: 82947; 94664

== ENCOUNTER → 2022-09-09 | Outpatient (CLI) | payer MEDICARE ==
[~2022-09-09] MED LIST changes: +AMLO-250 PO; +CLOP75TA28 PO
[2022-09-09 10:47] LABS: BILIRUBIN,URINE NEGATIVE (NEGATIVE); CLARITY,URINE CLOUDY; COLOR,URINE YELLOW; GLUCOSE, URINE (UA) NEGATIVE (NEGATIVE); KETONES,URINE NEGATIVE (NEGATIVE); LEUKOCYTE ESTERASE ,URINE 3+ (NEGATIVE); NITRITE,URINE POSITIVE (NEGATIVE); PH,URINE 6.5 (5-9); PROTEIN,URINE NEGATIVE (NEGATIVE)
[2022-09-09 10:57] LABS: BACTERIA,URINE LARGE /HPF; WBC,URINE >100 /HPF
[2022-09-09 12:41] LABS: HEMATOCRIT 33 % (35-52); HEMOGLOBIN 11.6 g/dL (11.5-16.0); MEAN CORPUSCULAR HEMOGLOBIN 31 pg (25-34); MEAN CORPUSCULAR HGB CONC 35 g/dL (32-36); MEAN CORPUSCULAR VOLUME 88 fL (80-99); MEAN PLATELET VOLUME 9.3 fL (9.0-12.2); PLATELET COUNT 241 10^3/uL (130-400); WHITE BLOOD COUNT 8.7 10^3/uL (4.3-11.0)
[2022-09-09 12:48] LABS: ALBUMIN 3.9 GM/DL (3.2-4.5); POTASSIUM 3.9 MMOL/L (3.6-5.0)
[2022-09-09 12:50] LABS: CALCIUM 9.5 MG/DL (8.5-10.1)
[2022-09-09 12:51] LABS: TOTAL PROTEIN 7.2 GM/DL (6.4-8.2)
[2022-09-09 12:54] LABS: CREATININE SERUM 1.33 MG/DL (0.60-1.30)
== END ==
LOC: LAB 10:37
PROVIDERS: ATTEND Physician Assistant
DX: E11.29 Type 2 diabetes mellitus with other diabetic kidney complication (principal); R41.82 Altered mental status, unspecified
CPT/HCPCS: 36415; 80053; 81000; 85027; 87077; 87088; 87186

== ENCOUNTER → 2023-02-07 | Outpatient (CLI) | payer MEDICARE ==
[2023-02-07 17:11] LABS: BILIRUBIN,URINE NEGATIVE (NEGATIVE); CLARITY,URINE CLEAR; COLOR,URINE YELLOW; GLUCOSE, URINE (UA) NEGATIVE (NEGATIVE); KETONES,URINE NEGATIVE (NEGATIVE); LEUKOCYTE ESTERASE ,URINE 1+ (NEGATIVE); NITRITE,URINE POSITIVE (NEGATIVE); PROTEIN,URINE 3+ (NEGATIVE)
[2023-02-07 17:21] LABS: BACTERIA,URINE LARGE /HPF
[2023-02-07 17:23] LABS: WBC,URINE 25-50 /HPF
== END ==
LOC: CVS 16:37
PROVIDERS: ATTEND Internal Medicine
DX: I69.351 Hemiplegia and hemiparesis following cerebral infarction affecting right dominant side (principal); N39.0 Urinary tract infection, site not specified; E11.8 Type 2 diabetes mellitus with unspecified complications; I10 Essential (primary) hypertension; E03.9 Hypothyroidism, unspecified; E87.6 Hypokalemia; E78.5 Hyperlipidemia, unspecified; F03.918 Unspecified dementia, unspecified severity, with other behavioral disturbance; I69.314 Frontal lobe and executive function deficit following cerebral infarction; R26.2 Difficulty in walking, not elsewhere classified; R53.1 Weakness
CPT/HCPCS: 81000; 87077; 87088; 87186